=== PATIENT | female | born 1945 | race Hispanic/Latino ===

== ENCOUNTER 2018-12-28 08:59 | Day surgery (SDC) | payer MEDICARE, OTHER ==
[~2018-12-28] VITALS: Ht 162.6 cm; Wt 77.6 kg
[~2018-12-28 08:59] MED LIST: ACET-66 PO; ASPI-1181 PO; ESOM40CA54 PO; METO50TA18 PO; NITR0.4T SL; PHEN100C9 PO; PRIM250T30 PO; PSYL660P17 PO; SIMV10TA2 PO; SODIUM CHLORIDE 0.9% 1000ML 1,000 ML IV ONE
[2018-12-28 09:49] VITALS: BP 133/64
[2018-12-28] MEDS ORDERED: PROPOFOL 10 MG/ML 20ML VIAL IV ONE (10:50)
[2018-12-28 11:08] VITALS: BP 102/47
[2018-12-28 11:13] VITALS: BP 109/51
[2018-12-28 11:22] VITALS: BP 110/51
[2018-12-28 11:34] VITALS: BP 116/54
[2018-12-28 11:46] VITALS: BP 110/52
[2019-05-08] MEDS ORDERED: METO50TA18 PO (04:36)
[2019-05-08] MEDS ORDERED: SIME180C35 PO (04:36)
[2019-05-08] MEDS ORDERED: ACET-2743 PO (04:36)
[2019-05-08] MEDS ORDERED: ROSU10TA28 PO (04:36)
[2019-05-08] MEDS ORDERED: TRAM50TA4 PO (04:36)
[2019-05-08] MEDS ORDERED: WARF6TAB49 PO (04:36)
== END 2018-12-28 11:56 | disposition home or self-care (01) ==
LOC: ENDO 08:59 → DAH 08:59 → ENDO 11:56
PROVIDERS: ATTEND Internal Medicine
DX: Z12.11 Encounter for screening for malignant neoplasm of colon (principal); D12.3 Benign neoplasm of transverse colon; K21.9 Gastro-esophageal reflux disease without esophagitis; Z86.010 Personal history of colon polyps; K29.70 Gastritis, unspecified, without bleeding; I25.10 Atherosclerotic heart disease of native coronary artery without angina pectoris; R56.9 Unspecified convulsions; K64.8 Other hemorrhoids; K57.30 Diverticulosis of large intestine without perforation or abscess without bleeding; G43.909 Migraine, unspecified, not intractable, without status migrainosus
CPT/HCPCS: 45380; 93005; A4606; J2704; J7030

== ENCOUNTER 2019-06-03 11:11 | Observation (INO) | payer OTHER ==
[~2019-06-03] VITALS: Ht 160 cm; Wt 76.0 kg
[~2019-06-03 11:11] MED LIST changes: +ACET-2743 PO; -NITR0.4T SL; +ROSU10TA28 PO; +SIME180C35 PO; -SODIUM CHLORIDE 0.9% 1000ML 1,000 ML IV ONE; +TRAM50TA4 PO; +WARF6TAB49 PO
[2019-06-03 11:37] LABS: BASOPHILS % (AUTO) 0.7 % (0.0-5.0); EOSINOPHILS % (AUTO) 2.9 % (0.0-8.0); HEMATOCRIT 36.1 % (36-48); MEAN CORPUSCULAR HEMOGLOBIN 31.6 pg (27.0-33.0); MEAN CORPUSCULAR HGB CONC 33.2 g/dL (32.0-36.0); MEAN CORPUSCULAR VOLUME 95.3 fL (79-99); MONOCYTES % (AUTO) 8.6 % (3.0-13.0); NEUTROPHILS % (AUTO) 60.8 % (40.0-77.0); NUCLEATED RED BLOOD CELLS 0.1 % (0.0-0.19); PLATELET COUNT (AUTO) 219 K/uL (130-400); RED BLOOD CELL COUNT(AUTO) 3.79 MIL/uL (4.00-5.50); RED CELL DISTRIBUTION WIDTH 12.6 % (11.0-15.5); WHITE BLOOD COUNT (AUTO) 5.7 K/uL (4.8-10.8)
[2019-06-03 11:45] LABS: CREATININE 0.8 mg/dL (0.5-1.5); POTASSIUM 4.4 mmol/L (3.5-5.1)
[2019-06-03 11:50] LABS: ALBUMIN 3.3 g/dL (3.5-5.0); BILIRUBIN,TOTAL 0.2 mg/dL (0.2-1.0); TOTAL PROTEIN, SERUM 7.9 g/dL (6.0-8.3)
[2019-06-03 11:59] LABS: CREATINE KINASE, TOTAL 76 U/L (21-232); MYOGLOBIN 34 ng/mL (10-92); TROPONIN I < 0.04 ng/mL (0.00-0.06)
[2019-06-03 13:59] LABS: APPEARANCE,URINE Clear (CLEAR); BILIRUBIN,URINE Negative (NEGATIVE); COLOR,URINE Yellow (YELLOW); GLUCOSE, URINE (UA) Negative (NEGATIVE); KETONES,URINE Negative (NEGATIVE); LEUKOCYTE ESTERASE ,URINE Small (NEGATIVE); NITRATE,URINE Negative (NEGATIVE); OCCULT BLOOD,URINE Negative (NEGATIVE); PROTEIN,URINE Negative (NEGATIVE); UROBILINOGEN,URINE 0.2 mg/dL (0.2-1.0)
[2019-06-03 14:14] LABS: BACTERIA,URINE Few /HPF (None Seen)
[2019-06-03 14:15] LABS: RBC,URINE None Seen /HPF (0-1)
[2019-06-03] MEDS ORDERED: MORPHINE SULFATE 2 MG/ML 1ML SYG IVP PRN (15:45)
[2019-06-03] MEDS ORDERED: ENOXAPARIN SODIUM 30 MG/0.3 ML SQ ONE (15:58)
[2019-06-03] MEDS ORDERED: ASPIRIN 81MG TAB.CHEW ONE (15:58)
[2019-06-03 19:00] VITALS: BP 137/63
--- NOTE | 2019-06-03 19:59 | NUR ---
INITIAL ASSESSMENT PATIENT WAS TRANSFERRED IN ED STRETCHER TO ROOM 220. PATIENT USED WALKER TO AMBULATE TO BED DUE TO S/P KNEE REPLACEMENT TO THE LEFT. PATIENT IS ALERT AND ORIENTED X4. NO COMPLAINTS OF CHEST PAIN AT THIS TIME. NO SIGNS OF DISTRESS. NO SHORTNESS OF BREATH. PATIENT HAS HER MEDICATIONS AT BEDSIDE. CALL LIGHT IS WITHIN REACH. BEDSIDE TABLE AND BELONGINGS ARE WITHIN REACH. PATIENT MADE COMFORTABLE. ALL QUESTIONS, CONCERNS AND NEEDS MET AT THIS TIME.
[2019-06-03 20:41] LABS: CREATINE KINASE, TOTAL 43 U/L (21-232); MYOGLOBIN 28 ng/mL (10-92); TROPONIN I < 0.04 ng/mL (0.00-0.06)
[2019-06-03] MEDS ORDERED: APIX5TAB PO (21:32)
[2019-06-03] MEDS: METOPROLOL TARTRATE 50 MG TAB PO SCH (21:34)
[2019-06-03 23:00] VITALS: BP 137/63
[2019-06-04 03:00] VITALS: BP 102/51
--- NOTE | 2019-06-04 03:32 | NUR ---
ASSESSMENT PATIENT IS RESTING IN BED. NO COMPLAINTS OF PAIN AT THIS TIME. NO SIGNS OF DISTRESS. NO SHORTNESS OF BREATH. PATIENTS CALL LIGHT IS WITHIN REACH. BEDSIDE TABLE IS WITHIN REACH. NO QUESTIONS, CONCERN, OR NEEDS AT THIS TIME.
[2019-06-04 04:16] LABS: MEAN CORPUSCULAR VOLUME 94.1 fL (79-99); PLATELET COUNT (AUTO) 218 K/uL (130-400); RED CELL DISTRIBUTION WIDTH 12.8 % (11.0-15.5); WHITE BLOOD COUNT (AUTO) 4.8 K/uL (4.8-10.8)
--- NOTE | 2019-06-04 04:36 | NUR ---
ASSESSMENT PATIENT IS RESTING IN BED. NO SIGNS OF DISTRESS. NO SHORTNESS OF BREATH. PATIENT VOICES NO PAIN AT THIS TIME BUT DID LET ME KNOW THAT SHE TOOK A DOSE OF HER HOME TRAMADOL FOR PAIN. PATIENT MADE AWARE TO NOT TAKE ANY MORE OF HER MEDICATIONS TILL THE MORNING THAT THE DOCTOR CAN REVIEW AND CONTINUE HER MEDICATIONS. PATIENT VOICED SHE UNDERSTOOD. CALL LIGHT WITHIN REACH. BEDSIDE TABLE WITHIN REACH. NO QUESTIONS, CONCERNS, OR NEEDS AT THIS TIME.
[2019-06-04 04:44] LABS: CREATINE KINASE, TOTAL 35 U/L (21-232); MYOGLOBIN 31 ng/mL (10-92); TROPONIN I < 0.04 ng/mL (0.00-0.06)
[2019-06-04 04:56] LABS: ALANINE AMINOTRANSFERASE 24 U/L (12-78); ALBUMIN 3.1 g/dL (3.5-5.0); ASPARTATE AMINOTRANSFERASE 30 U/L (10-37); BILIRUBIN,TOTAL 0.2 mg/dL (0.2-1.0); CARBON DIOXIDE 29 mmol/L (21-32); CHLORIDE 103 mmol/L (101-111); CHOLESTEROL 164 mg/dL (<200); CREATININE 0.8 mg/dL (0.5-1.5); GLOMERULAR FILTR. RATE CALC 75 mL/min (>60); GLUCOSE,RANDOM 89 mg/dL (70-105); HDL CHOLESTEROL 73 mg/dL (35-85); LDL DIRECT 72 mg/dL (0-99); POTASSIUM 4.6 mmol/L (3.5-5.1); SODIUM SERUM 142 mmol/L (136-145); TRIGLYCERIDES 90 mg/dL (30-200); UREA NITROGEN, BLOOD 12 mg/dL (7-18)
[2019-06-04 07:10] VITALS: BP 107/62
[2019-06-04] MEDS: METOPROLOL TARTRATE 50 MG TAB PO SCH (09:00)
[2019-06-04] MEDS ORDERED: ENOXAPARIN SODIUM 30 MG/0.3 ML SQ SCH (09:00)
[2019-06-04] MEDS ORDERED: ASPIRIN 81MG TAB.CHEW PO SCH (09:00)
[2019-06-04 11:00] VITALS: BP 117/63
--- NOTE | 2019-06-04 11:00 | NUR ---
DC INSTRUCTION GIVEN USING TEACH BACK, INST GIVEN TO FOLLOW UP WITH [facility] IN AM FOR MONITOR AND F/U IN CLINIC WITH DR SMITH IN 2 WEEKS. CATHETER REMOVED INTACT.
[2019-06-04] MEDS ORDERED: TRAMADOL HCL 50 MG TABLET PO PRN ×2 (11:15)
[2019-06-04] MEDS ORDERED: INSULIN HUMULIN R 100 UNIT/ML 3ML SQ SCH (11:30)
[2019-06-04] MEDS ORDERED: SIMETHICONE 80 MG TAB.CHEW PO SCH (12:30)
[2019-06-04] MEDS ORDERED: PHENYTOIN SODIUM 100 MG ERCAP PO SCH (13:00)
[2019-06-04] MEDS ORDERED: PRIMIDONE 50 MG TAB PO SCH (14:00)
[2019-06-04] MEDS ORDERED: METOPROLOL TARTRATE 50 MG TAB PO SCH (21:00)
[2019-06-04] MEDS ORDERED: APIXABAN 5 MG TABLET PO SCH (21:00)
[2019-06-04] MEDS ORDERED: ACETAMINOPHEN EXTRA STRENGTH 500 MG TABLET PO SCH (21:00)
[2019-06-04] MEDS ORDERED: PSYLLIUM SEED 1 EACH PACKET PO SCH (21:00)
[2019-06-04] MEDS ORDERED: ATORVASTATIN CALCIUM 20 MG TABLET PO SCH (21:00)
== END 2019-06-04 14:45 | disposition home or self-care (01) ==
LOC: EDH 11:11 → INTOOBSV 15:17 → EDHIP 15:17 → 2DH 19:45
PROVIDERS: ADMIT Internal Medicine Infectious Disease; ATTEND Internal Medicine Infectious Disease
DX: I25.119 Atherosclerotic heart disease of native coronary artery with unspecified angina pectoris (principal); I12.0 Hypertensive chronic kidney disease with stage 5 chronic kidney disease or end stage renal disease; E11.22 Type 2 diabetes mellitus with diabetic chronic kidney disease; N18.6 End stage renal disease; E78.5 Hyperlipidemia, unspecified; I48.0 Paroxysmal atrial fibrillation; I48.2 Chronic atrial fibrillation; G40.909 Epilepsy, unspecified, not intractable, without status epilepticus; M19.90 Unspecified osteoarthritis, unspecified site; Z96.652 Presence of left artificial knee joint; Z90.710 Acquired absence of both cervix and uterus; Z95.5 Presence of coronary angioplasty implant and graft; Z99.2 Dependence on renal dialysis; Z90.711 Acquired absence of uterus with remaining cervical stump; Z79.01 Long term (current) use of anticoagulants; Z79.02 Long term (current) use of antithrombotics/antiplatelets; Z79.899 Other long term (current) drug therapy; Z79.82 Long term (current) use of aspirin; Z88.2 Allergy status to sulfonamides; Z88.1 Allergy status to other antibiotic agents; Z88.5 Allergy status to narcotic agent; Z88.8 Allergy status to other drugs, medicaments and biological substances; Z91.048 Other nonmedicinal substance allergy status
CPT/HCPCS: 36415 ×2; 80053 ×2; 80061; 81001; 82550 ×3; 83735; 83874 ×3; 84484 ×3; 85025; 85027; 93005; 99284; G0378 ×2; J1650

== ENCOUNTER → 2019-06-29 | Outpatient (CLI) | payer OTHER ==
[~2019-06-29] MED LIST changes: -ACET-66 PO; +APIX5TAB PO; -ASPI-1181 PO; -ESOM40CA54 PO; -SIMV10TA2 PO; -WARF6TAB49 PO
== END | disposition home or self-care (01) ==
LOC: SHCH 12:53
PROVIDERS: ATTEND Internal Medicine Cardiovascular Disease
DX: I34.0 Nonrheumatic mitral (valve) insufficiency (principal); I51.3 Intracardiac thrombosis, not elsewhere classified; I48.91 Unspecified atrial fibrillation; I51.7 Cardiomegaly
CPT/HCPCS: 93306

== ENCOUNTER → 2020-02-01 | Outpatient (CLI) | payer OTHER ==
[~2020-02-01] MED LIST changes: +METO-391 PO; -METO50TA18 PO
== END | disposition home or self-care (01) ==
LOC: OIH 14:19
PROVIDERS: ATTEND Internal Medicine
DX: M79.89 Other specified soft tissue disorders (principal); M85.88 Other specified disorders of bone density and structure, other site; M06.4 Inflammatory polyarthropathy
CPT/HCPCS: 72040; 73130

== ENCOUNTER 2020-06-22 22:06 | Emergency (ER) | payer OTHER ==
[2020-06-22 22:57] LABS: BASOPHILS % (AUTO) 0.5 % (0.0-5.0); EOSINOPHILS % (AUTO) 2.1 % (0.0-8.0); HEMATOCRIT 33.5 % (36-48); LYMPHOCYTES % (AUTO) 35.6 % (21.0-51.0); MEAN CORPUSCULAR HEMOGLOBIN 30.7 pg (27.0-33.0); MEAN CORPUSCULAR HGB CONC 33.4 g/dL (32.0-36.0); MEAN CORPUSCULAR VOLUME 91.8 fL (79-99); MONOCYTES % (AUTO) 11.1 % (3.0-13.0); NEUTROPHILS % (AUTO) 50.5 % (40.0-77.0); PLATELET COUNT (AUTO) 227 K/uL (130-400); RED BLOOD CELL COUNT(AUTO) 3.65 MIL/uL (4.00-5.50); RED CELL DISTRIBUTION WIDTH 13.2 % (11.0-15.5); WHITE BLOOD COUNT (AUTO) 5.7 K/uL (4.8-10.8)
[2020-06-22 23:10] LABS: CREATININE 0.7 mg/dL (0.5-1.5); POTASSIUM 4.3 mmol/L (3.5-5.1)
[2020-06-22 23:13] LABS: INR 0.92 (0.85-1.15); PARTIAL THROMBOPLASTIN TIME 25.8 SEC (26.3-35.5)
[2020-06-22 23:19] LABS: ALBUMIN 3.3 g/dL (3.5-5.0); BILIRUBIN,TOTAL 0.1 mg/dL (0.2-1.0); TOTAL PROTEIN, SERUM 7.7 g/dL (6.0-8.3)
== END 2020-06-23 01:31 | disposition home or self-care (01) ==
LOC: EDH 22:06
DX: R00.2 Palpitations (principal); F41.1 Generalized anxiety disorder; I48.91 Unspecified atrial fibrillation; E78.00 Pure hypercholesterolemia, unspecified; I10 Essential (primary) hypertension; Z88.2 Allergy status to sulfonamides; Z91.041 Radiographic dye allergy status; Z88.6 Allergy status to analgesic agent
CPT/HCPCS: 36415; 71045; 80053; 82550; 84484; 85025; 85610; 85730; 93005

== ENCOUNTER 2020-11-13 05:13 | Observation (INO) | payer OTHER ==
[~2020-11-13] VITALS: Ht 160 cm; Wt 82.9 kg
[2020-11-13] MEDS ORDERED: METOPROLOL TARTRATE 1 MG/ML 5ML VIAL IV ONE ×3 (05:22→05:36)
[2020-11-13 05:23] LABS: BASOPHILS % (AUTO) 0.5 % (0.0-5.0); EOSINOPHILS % (AUTO) 3.4 % (0.0-8.0); HEMATOCRIT 38.7 % (36-48); LYMPHOCYTES % (AUTO) 37.3 % (21.0-51.0); MEAN CORPUSCULAR HEMOGLOBIN 30.4 pg (27.0-33.0); MEAN CORPUSCULAR HGB CONC 32.6 g/dL (32.0-36.0); MEAN CORPUSCULAR VOLUME 93.3 fL (79-99); MONOCYTES % (AUTO) 10.1 % (3.0-13.0); NEUTROPHILS % (AUTO) 48.5 % (40.0-77.0); PLATELET COUNT (AUTO) 262 K/uL (130-400); RED BLOOD CELL COUNT(AUTO) 4.15 MIL/uL (4.00-5.50); WHITE BLOOD COUNT (AUTO) 6.5 K/uL (4.8-10.8)
[2020-11-13 05:37] LABS: ALBUMIN 3.5 g/dL (3.5-5.0); BILIRUBIN,TOTAL 0.2 mg/dL (0.2-1.0); CREATININE 0.9 mg/dL (0.5-1.5); INR 0.98 (0.85-1.15); POTASSIUM 4.5 mmol/L (3.5-5.1); PROTHROMBIN TIME 10.7 SEC (9.6-11.6); TOTAL PROTEIN, SERUM 7.6 g/dL (6.0-8.3)
[2020-11-13 05:38] LABS: PARTIAL THROMBOPLASTIN TIME 24.1 SEC (26.3-35.5)
[2020-11-13] MEDS ORDERED: DILTIAZEM HCL 5 MG/ML 10 ML VIAL IV ONE (05:46)
[2020-11-13 07:37] LABS: APPEARANCE,URINE Clear (CLEAR); BILIRUBIN,URINE Negative (NEGATIVE); COLOR,URINE Yellow (YELLOW); GLUCOSE, URINE (UA) Negative (NEGATIVE); KETONES,URINE Negative (NEGATIVE); LEUKOCYTE ESTERASE ,URINE Small (NEGATIVE); NITRATE,URINE Negative (NEGATIVE); OCCULT BLOOD,URINE Negative (NEGATIVE); PROTEIN,URINE Negative (NEGATIVE); UROBILINOGEN,URINE 0.2 mg/dL (0.2-1.0)
[2020-11-13 07:59] LABS: BACTERIA,URINE Rare /HPF (None Seen); RBC,URINE None Seen /HPF (0-1); WBC,URINE 0-1 /HPF (0-1)
[2020-11-13] MEDS ORDERED: MORPHINE SULFATE 2 MG/ML 1ML SYG IV PRN (11:30)
[2020-11-13 11:44] LABS: CHOLESTEROL 138 mg/dL (<200); HDL CHOLESTEROL 74 mg/dL (35-85); LDL DIRECT 51 mg/dL (0-99); TRIGLYCERIDES 39 mg/dL (30-200)
[2020-11-13 11:57] LABS: HEMOGLOBIN A1C 5.7 % (4.0-6.0)
[2020-11-13] MEDS ORDERED: METOPROLOL TARTRATE 1 MG/ML 5ML VIAL IV PRN (12:30)
[2020-11-13 21:00] VITALS: BP 159/80
[2020-11-13] MEDS ORDERED: METOPROLOL TARTRATE 25 MG TAB PO SCH ×2 (21:00)
[2020-11-13] MEDS ORDERED: SIMVASTATIN 10 MG TABLET PO SCH (21:00)
[2020-11-13] MEDS ORDERED: PRIMIDONE 50 MG TAB PO SCH (21:00)
[2020-11-13] MEDS ORDERED: APIXABAN 5 MG TABLET PO SCH (21:00)
[2020-11-13] MEDS: METOPROLOL TARTRATE 25 MG TAB PO SCH (22:21)
[2020-11-13] MEDS: FAMOTIDINE/PF 20 MG/2 ML VIAL IV SCH (22:21)
[2020-11-13] MEDS: SODIUM CHLORIDE 0.9% 1000ML 1,000 ML IV SCH (22:23)
[2020-11-14] VITALS (7 sets, daily range): BP systolic 94–150; BP diastolic 53–73
[2020-11-14 02:17] LABS: BASOPHILS % (AUTO) 0.4 % (0.0-5.0); EOSINOPHILS % (AUTO) 1.9 % (0.0-8.0); HEMATOCRIT 33.5 % (36-48); LYMPHOCYTES % (AUTO) 30.6 % (21.0-51.0); MEAN CORPUSCULAR HEMOGLOBIN 30.7 pg (27.0-33.0); MEAN CORPUSCULAR HGB CONC 33.1 g/dL (32.0-36.0); MEAN CORPUSCULAR VOLUME 92.8 fL (79-99); MONOCYTES % (AUTO) 8.6 % (3.0-13.0); NEUTROPHILS % (AUTO) 58.4 % (40.0-77.0); PLATELET COUNT (AUTO) 220 K/uL (130-400); RED BLOOD CELL COUNT(AUTO) 3.61 MIL/uL (4.00-5.50); WHITE BLOOD COUNT (AUTO) 6.9 K/uL (4.8-10.8)
[2020-11-14 02:40] LABS: ALBUMIN 3.1 g/dL (3.5-5.0); BILIRUBIN,TOTAL 0.3 mg/dL (0.2-1.0); CREATININE 0.9 mg/dL (0.5-1.5); TOTAL PROTEIN, SERUM 6.9 g/dL (6.0-8.3)
[2020-11-14] MEDS: SODIUM CHLORIDE 0.9% 1000ML 1,000 ML IV SCH ×3 (04:09→23:05)
[2020-11-14] MEDS ORDERED: PHENYTOIN SODIUM 50 MG/ML 2ML VIAL IV SCH (05:00)
[2020-11-14] MEDS ORDERED: PHENYTOIN SODIUM IV SCH ×4 (05:15)
[2020-11-14] MEDS ORDERED: SODIUM CHLORIDE 0.9% IV SCH ×4 (05:15)
[2020-11-14] MEDS ORDERED: ENOXAPARIN SODIUM 40 MG/0.4 ML SYRINGE SQ SCH ×2 (09:00)
[2020-11-14] MEDS ORDERED: ASPIRIN 81MG TAB.CHEW PO SCH (09:00)
[2020-11-14] MEDS: METOPROLOL TARTRATE 25 MG TAB PO SCH ×2 (09:16→22:17)
[2020-11-14] MEDS: PHENYTOIN 100 MG/4 ML UDCUP PO SCH ×3 (09:16→22:15)
[2020-11-14] MEDS: FAMOTIDINE/PF 20 MG/2 ML VIAL IV SCH ×2 (09:17→22:17)
[2020-11-14] MEDS ORDERED: METO50TA9 PO (22:26)
[2020-11-14] MEDS ORDERED: PRIMIDONE 50 MG TAB PO SCH (23:00)
[2020-11-14] MEDS: PHENYTOIN SODIUM IV SCH (23:30)
[2020-11-14] MEDS: SODIUM CHLORIDE 0.9% IV SCH (23:30)
[2020-11-15] VITALS: BP 137/72
[2020-11-15] MEDS ORDERED: PHENYTOIN SODIUM 50 MG/ML 5ML VIAL ONE (01:44)
[2020-11-15] MEDS ORDERED: SODIUM CHLORIDE 0.9% 250 ML IV ONE (01:49)
[2020-11-15 03:00] VITALS: BP 141/69
[2020-11-15 04:05] LABS: HEMATOCRIT 34.4 % (36-48); MEAN CORPUSCULAR HEMOGLOBIN 30.4 pg (27.0-33.0); MEAN CORPUSCULAR HGB CONC 32.8 g/dL (32.0-36.0); MEAN CORPUSCULAR VOLUME 92.5 fL (79-99); RED BLOOD CELL COUNT(AUTO) 3.72 MIL/uL (4.00-5.50); RED CELL DISTRIBUTION WIDTH 12.6 % (11.0-15.5); WHITE BLOOD COUNT (AUTO) 7.4 K/uL (4.8-10.8)
[2020-11-15 04:19] LABS: CREATININE 0.8 mg/dL (0.5-1.5); PHENYTOIN (DILANTIN) 3.1 mcg/mL (10.0-20.0)
[2020-11-15 04:59] VITALS: BP 141/69
[2020-11-15] MEDS: SODIUM CHLORIDE 0.9% IV SCH (05:12)
[2020-11-15] MEDS: PHENYTOIN SODIUM IV SCH (05:12)
[2020-11-15] MEDS ORDERED: METOPROLOL SUCCINATE 50 MG TAB.SR.24H PO SCH (09:00)
== END 2020-11-15 07:35 | disposition left against medical advice (07) ==
LOC: EDH 05:13 → EDHIP 11:18 → INTOOBSV 11:18 → 4AH 19:54
PROVIDERS: ADMIT Internal Medicine; ATTEND Internal Medicine
DX: R07.89 Other chest pain (principal); I48.19 Other persistent atrial fibrillation; I25.10 Atherosclerotic heart disease of native coronary artery without angina pectoris; I10 Essential (primary) hypertension; E78.5 Hyperlipidemia, unspecified; R74.01 Elevation of levels of liver transaminase levels; I48.0 Paroxysmal atrial fibrillation; I25.2 Old myocardial infarction; D68.59 Other primary thrombophilia; G40.909 Epilepsy, unspecified, not intractable, without status epilepticus; Z95.5 Presence of coronary angioplasty implant and graft; Z90.710 Acquired absence of both cervix and uterus; Z90.12 Acquired absence of left breast and nipple; Z96.652 Presence of left artificial knee joint; Z79.01 Long term (current) use of anticoagulants; Z79.899 Other long term (current) drug therapy; Z88.1 Allergy status to other antibiotic agents; Z88.2 Allergy status to sulfonamides; Z88.5 Allergy status to narcotic agent; Z91.041 Radiographic dye allergy status
CPT/HCPCS: 36415 ×3; 71045; 80048; 80053 ×2; 80061; 80185 ×2; 81001; 83036; 83880; 84484 ×5; 85025 ×2; 85027; 85610; 85730; 93005 ×3; 93306; 93356; 96361 ×2; 96365; 96372; 96375; 96376; 99285; G0378 ×44; J1165 ×2; J1650; J3490 ×7; J7050

== ENCOUNTER → 2020-12-17 | Outpatient (CLI) | payer OTHER ==
[~2020-12-17] MED LIST changes: +METO50TA9 PO
== END | disposition home or self-care (01) ==
LOC: RAH 10:00
PROVIDERS: ATTEND Psychiatry & Neurology Neurology
DX: G40.909 Epilepsy, unspecified, not intractable, without status epilepticus (principal); I63.9 Cerebral infarction, unspecified
CPT/HCPCS: 70450

== ENCOUNTER 2021-03-10 01:59 | Observation (INO) | payer OTHER ==
[~2021-03-10] VITALS: Ht 160 cm; Wt 84.4 kg
[2021-03-10] VITALS (10 sets, daily range): BP systolic 98–138; BP diastolic 44–83
[2021-03-10 02:31] LABS: HEMATOCRIT 37.4 % (36-48); MEAN CORPUSCULAR HEMOGLOBIN 30.7 pg (27.0-33.0); MEAN CORPUSCULAR HGB CONC 32.6 g/dL (32.0-36.0); MEAN CORPUSCULAR VOLUME 94.2 fL (79-99); RED BLOOD CELL COUNT(AUTO) 3.97 MIL/uL (4.00-5.50); RED CELL DISTRIBUTION WIDTH 12.8 % (11.0-15.5); WHITE BLOOD COUNT (AUTO) 7.4 K/uL (4.8-10.8)
[2021-03-10 02:41] LABS: CREATININE 0.7 mg/dL (0.5-1.5)
[2021-03-10 02:44] LABS: INR 0.97 (0.85-1.15); PROTHROMBIN TIME 10.6 SEC (9.6-11.6)
[2021-03-10 02:45] LABS: ALBUMIN 3.6 g/dL (3.5-5.0); BILIRUBIN,TOTAL 0.1 mg/dL (0.2-1.0); MAGNESIUM 2.1 mg/dL (1.80-2.40); PARTIAL THROMBOPLASTIN TIME 25.6 SEC (26.3-35.5); TOTAL PROTEIN, SERUM 7.8 g/dL (6.0-8.3)
[2021-03-10] MEDS ORDERED: METOPROLOL TARTRATE 1 MG/ML 5ML VIAL IV ONE ×3 (03:18→04:00)
[2021-03-10] MEDS ORDERED: DILTIAZEM 125 MG/25 ML INJ IV ONE (04:39)
[2021-03-10] MEDS ORDERED: DILTIAZEM 50MG VIAL IV ONE (04:40)
[2021-03-10] MEDS ORDERED: DILTIAZEM 50MG VIAL IV SCH ×2 (04:45)
[2021-03-10] MEDS ORDERED: 0.9%NACL 500ML 500 ML IV SCH (04:45)
[2021-03-10] MEDS ORDERED: DILTIAZEM 125MG+100 ML NS 125 ML IV SCH (05:00)
[2021-03-10 05:10] LABS: APPEARANCE,URINE Clear (CLEAR); BILIRUBIN,URINE Negative (NEGATIVE); COLOR,URINE Yellow (YELLOW); GLUCOSE, URINE (UA) Negative (NEGATIVE); KETONES,URINE Negative (NEGATIVE); LEUKOCYTE ESTERASE ,URINE Moderate (NEGATIVE); NITRATE,URINE Negative (NEGATIVE); OCCULT BLOOD,URINE Negative (NEGATIVE); PROTEIN,URINE Negative (NEGATIVE); UROBILINOGEN,URINE 0.2 mg/dL (0.2-1.0)
[2021-03-10 05:28] LABS: BACTERIA,URINE Rare /HPF (None Seen); RBC,URINE 0-1 /HPF (0-1); SQUAMOUS EPITHELIAL CELL,UR 0-2 /HPF (0-2)
[2021-03-10] MEDS ORDERED: ONDANSETRON 4MG INJ IV PRN (06:30)
[2021-03-10] MEDS ORDERED: LACTULOSE 20 GM/30 ML UDCUP PO PRN (06:30)
[2021-03-10] MEDS ORDERED: ACETAMINOPHEN 325 MG TAB PO PRN ×2 (06:30)
[2021-03-10 06:52] LABS: AMPHET/METH SCREEN,URINE NEGATIVE (NEGATIVE); BARBITURATE SCREEN, URINE POSITIVE (NEGATIVE); BENZODIAZEPINES SCREEN,URINE NEGATIVE (NEGATIVE); CANNABINOID SCREEN,URINE NEGATIVE (NEGATIVE); COCAINE SCREEN,URINE NEGATIVE (NEGATIVE); OPIATE SCREEN,URINE NEGATIVE (NEGATIVE); PHENCYCLIDINE SCREEN,URINE NEGATIVE (NEGATIVE)
[2021-03-10] MEDS ORDERED: ASPIRIN 81MG CHEW TAB ONE (08:25)
[2021-03-10] MEDS: PANTOPRAZOLE 40 MG TAB DR PO SCH (08:46)
[2021-03-10] MEDS ORDERED: ASPIRIN 325 MG TABLET PO SCH (09:00)
[2021-03-10] MEDS ORDERED: ENOXAPARIN SODIUM 30 MG/0.3 ML SQ SCH (09:00)
[2021-03-10] MEDS ORDERED: METOPROLOL TARTRATE 25 MG TAB PO SCH ×2 (09:00→21:00)
[2021-03-10] MEDS ORDERED: WHEA1POW2 PO (12:17)
[2021-03-10] MEDS ORDERED: METO25TA6 PO (12:17)
[2021-03-10] MEDS ORDERED: METO50TA18 PO (12:17)
[2021-03-10] MEDS: APIXABAN 5 MG TABLET PO SCH (21:00)
[2021-03-10] MEDS: PHENYTOIN SODIUM 100 MG ERCAP PO SCH (21:00)
[2021-03-10] MEDS ORDERED: ATORVASTATIN 20 MG TABLET PO SCH (21:00)
[2021-03-10] MEDS ORDERED: APIXABAN 5 MG TABLET PO SCH (21:00)
[2021-03-10] MEDS: PRIMIDONE 50 MG TAB PO SCH (21:00)
[2021-03-10] MEDS: SOTALOL HCL 80 MG TABLET PO SCH (21:54)
[2021-03-11 00:30] VITALS: BP 128/68
[2021-03-11 04:14] VITALS: BP 130/53
[2021-03-11 05:10] VITALS: BP 101/58
[2021-03-11 05:28] LABS: BASOPHILS % (AUTO) 0.6 % (0.0-5.0); EOSINOPHILS % (AUTO) 2.8 % (0.0-8.0); HEMATOCRIT 37.3 % (36-48); LYMPHOCYTES % (AUTO) 34.6 % (21.0-51.0); MEAN CORPUSCULAR HEMOGLOBIN 31.3 pg (27.0-33.0); MEAN CORPUSCULAR VOLUME 94.9 fL (79-99); MONOCYTES % (AUTO) 10.3 % (3.0-13.0); NEUTROPHILS % (AUTO) 51.5 % (40.0-77.0); PLATELET COUNT (AUTO) 198 K/uL (130-400); RED BLOOD CELL COUNT(AUTO) 3.93 MIL/uL (4.00-5.50); RED CELL DISTRIBUTION WIDTH 12.7 % (11.0-15.5); WHITE BLOOD COUNT (AUTO) 4.9 K/uL (4.8-10.8)
[2021-03-11 05:43] LABS: CREATININE 0.7 mg/dL (0.5-1.5); POTASSIUM 4.2 mmol/L (3.5-5.1)
[2021-03-11] MEDS ORDERED: SOTA80TA PO (05:49)
[2021-03-11 08:00] VITALS: BP 133/50
[2021-03-11] MEDS ORDERED: METOPROLOL TARTRATE 50 MG TAB PO SCH (09:00)
[2021-03-11] MEDS: PRIMIDONE 50 MG TAB PO SCH (09:22)
[2021-03-11] MEDS: PANTOPRAZOLE 40 MG TAB DR PO SCH (09:22)
[2021-03-11] MEDS: APIXABAN 5 MG TABLET PO SCH (09:22)
[2021-03-11] MEDS: SOTALOL HCL 80 MG TABLET PO SCH (09:22)
[2021-03-11] MEDS: PHENYTOIN SODIUM 100 MG ERCAP PO SCH (09:23)
[2021-03-11 12:00] VITALS: BP 125/64
== END 2021-03-11 12:45 | disposition home or self-care (01) ==
LOC: EDH 01:59 → EDHIP 05:55 → INTOOBSV 05:55 → 3DH 03-11 04:36
PROVIDERS: ADMIT Internal Medicine; ATTEND Internal Medicine
DX: I48.0 Paroxysmal atrial fibrillation (principal); I11.0 Hypertensive heart disease with heart failure; I50.33 Acute on chronic diastolic (congestive) heart failure; I25.10 Atherosclerotic heart disease of native coronary artery without angina pectoris; R60.0 Localized edema; E78.5 Hyperlipidemia, unspecified; G40.909 Epilepsy, unspecified, not intractable, without status epilepticus; Z86.73 Personal history of transient ischemic attack (TIA), and cerebral infarction without residual deficits; Z96.652 Presence of left artificial knee joint; Z90.711 Acquired absence of uterus with remaining cervical stump; Z95.5 Presence of coronary angioplasty implant and graft; Z91.19 Patient's noncompliance with other medical treatment and regimen; Z79.01 Long term (current) use of anticoagulants; Z79.82 Long term (current) use of aspirin; Z79.899 Other long term (current) drug therapy; Z88.1 Allergy status to other antibiotic agents; Z88.2 Allergy status to sulfonamides; Z88.5 Allergy status to narcotic agent; Z91.041 Radiographic dye allergy status
CPT/HCPCS: 36415 ×2; 71045; 80048; 80053; 80305; 81001; 82550; 82948; 83735 ×2; 83880; 84443; 84484 ×3; 85025; 85027; 85610; 85730; 87088; 93005 ×3; 93970; 96372; 96374; 96375; 96376; 99285; G0378 ×31; J1650; J3490 ×3

== ENCOUNTER 2021-04-03 03:31 | Observation (INO) | payer OTHER ==
[2021-04-03] VITALS (10 sets, daily range): BP systolic 114–162; BP diastolic 58–87
[~2021-04-03] VITALS: Ht 160 cm; Wt 77.9 kg
[~2021-04-03 03:31] MED LIST changes: -METO-391 PO; -METO50TA9 PO; -PSYL660P17 PO; +SOTA80TA PO; -TRAM50TA4 PO; +WHEA1POW2 PO
[2021-04-03] MEDS ORDERED: DILTIAZEM 25MG INJ IVP SCH ×2 (04:00→05:30)
[2021-04-03] MEDS ORDERED: DILTIAZEM 50MG VIAL IV ONE (04:07)
[2021-04-03 04:15] LABS: BASOPHILS % (AUTO) 0.4 % (0.0-5.0); EOSINOPHILS % (AUTO) 3.1 % (0.0-8.0); HEMATOCRIT 38.5 % (36-48); LYMPHOCYTES % (AUTO) 33.3 % (21.0-51.0); MEAN CORPUSCULAR HEMOGLOBIN 31.5 pg (27.0-33.0); MEAN CORPUSCULAR HGB CONC 33.2 g/dL (32.0-36.0); MEAN CORPUSCULAR VOLUME 94.8 fL (79-99); MONOCYTES % (AUTO) 10.8 % (3.0-13.0); NEUTROPHILS % (AUTO) 52.1 % (40.0-77.0); PLATELET COUNT (AUTO) 234 K/uL (130-400); RED BLOOD CELL COUNT(AUTO) 4.06 MIL/uL (4.00-5.50); RED CELL DISTRIBUTION WIDTH 13.2 % (11.0-15.5)
[2021-04-03 04:19] LABS: CREATININE 0.8 mg/dL (0.5-1.5); POTASSIUM 4.5 mmol/L (3.5-5.1)
[2021-04-03 04:23] LABS: INR 0.97 (0.85-1.15); PROTHROMBIN TIME 10.6 SEC (9.6-11.6)
[2021-04-03 04:29] LABS: ALBUMIN 3.7 g/dL (3.5-5.0); BILIRUBIN,TOTAL 0.2 mg/dL (0.2-1.0); MAGNESIUM 2.5 mg/dL (1.80-2.40); TOTAL PROTEIN, SERUM 7.9 g/dL (6.0-8.3)
[2021-04-03] MEDS ORDERED: 0.9%NACL 1000ML 1,000 ML IV ONE ×2 (04:30→05:30)
[2021-04-03 04:37] LABS: B-TYPE NATRIURETIC PEPTIDE 199 pg/mL (0-100)
[2021-04-03 05:36] LABS: APPEARANCE,URINE Cloudy (CLEAR); BILIRUBIN,URINE Negative (NEGATIVE); COLOR,URINE Yellow (YELLOW); GLUCOSE, URINE (UA) Negative (NEGATIVE); KETONES,URINE Negative (NEGATIVE); LEUKOCYTE ESTERASE ,URINE Trace (NEGATIVE); NITRATE,URINE Negative (NEGATIVE); OCCULT BLOOD,URINE Negative (NEGATIVE); PROTEIN,URINE Negative (NEGATIVE); UROBILINOGEN,URINE 0.2 mg/dL (0.2-1.0)
[2021-04-03] MEDS ORDERED: DILTIAZEM 125 MG/25 ML INJ IV ONE (05:53)
[2021-04-03] MEDS ORDERED: 0.9%NACL 100ML 100 ML ONE (05:54)
[2021-04-03] MEDS ORDERED: ONDANSETRON 4MG INJ IV PRN (06:00)
[2021-04-03] MEDS ORDERED: NITROGLYCERIN 0.4 MG SL TAB SL PRN (06:00)
[2021-04-03] MEDS ORDERED: ACETAMINOPHEN 325 MG TAB PO PRN ×2 (06:00)
[2021-04-03] MEDS ORDERED: 0.9%NACL 1000ML 1,000 ML IV SCH (06:00)
[2021-04-03 06:02] LABS: BACTERIA,URINE None Seen /HPF (None Seen); RBC,URINE None Seen /HPF (0-1); SQUAMOUS EPITHELIAL CELL,UR Few /HPF (0-2); WBC,URINE 0-1 /HPF (0-1)
[2021-04-03] MEDS: DILTIAZEM 125 MG/25 ML INJ 125 MG in 0.9%NACL 100ML 100 ML IV SCH (06:10)
[2021-04-03] MEDS: PRIMIDONE 50 MG TAB PO SCH ×3 (08:58→21:05)
[2021-04-03] MEDS: APIXABAN 5 MG TABLET PO SCH ×2 (08:58→21:00)
[2021-04-03] MEDS: PANTOPRAZOLE 40 MG TAB DR PO SCH (08:58)
[2021-04-03] MEDS ORDERED: FAMOTIDINE 20MG TAB PO SCH (09:00)
[2021-04-03] MEDS: PHENYTOIN SODIUM 100 MG ERCAP PO SCH ×2 (15:05→21:00)
[2021-04-03] MEDS: ATORVASTATIN 20 MG TABLET PO SCH (21:00)
[2021-04-04] VITALS (7 sets, daily range): BP systolic 123–167; BP diastolic 64–88
[2021-04-04] MEDS: DILTIAZEM 125 MG/25 ML INJ 125 MG in 0.9%NACL 100ML 100 ML IV SCH (02:51)
[2021-04-04 04:22] LABS: BASOPHILS % (AUTO) 0.5 % (0.0-5.0); EOSINOPHILS % (AUTO) 7.7 % (0.0-8.0); HEMATOCRIT 35.7 % (36-48); LYMPHOCYTES % (AUTO) 30.4 % (21.0-51.0); MEAN CORPUSCULAR HEMOGLOBIN 30.8 pg (27.0-33.0); MEAN CORPUSCULAR HGB CONC 32.8 g/dL (32.0-36.0); MEAN CORPUSCULAR VOLUME 93.9 fL (79-99); MONOCYTES % (AUTO) 10.4 % (3.0-13.0); NEUTROPHILS % (AUTO) 50.6 % (40.0-77.0); PLATELET COUNT (AUTO) 159 K/uL (130-400); RED CELL DISTRIBUTION WIDTH 13.1 % (11.0-15.5); WHITE BLOOD COUNT (AUTO) 5.6 K/uL (4.8-10.8)
[2021-04-04 04:34] LABS: BILIRUBIN,TOTAL 0.3 mg/dL (0.2-1.0); CREATININE 0.6 mg/dL (0.5-1.5); MAGNESIUM 2.1 mg/dL (1.80-2.40); POTASSIUM 3.7 mmol/L (3.5-5.1)
[2021-04-04] MEDS: PANTOPRAZOLE 40 MG TAB DR PO SCH (05:45)
[2021-04-04] MEDS ORDERED: METO-391 PO (11:26)
[2021-04-04] MEDS ORDERED: AMIO200T6 PO (11:26)
[2021-04-04] MEDS ORDERED: METOPROLOL SUCCINATE 50 MG TAB.SR.24H PO SCH (11:30)
[2021-04-04] MEDS ORDERED: AMIODARONE 900MG VIAL 900 MG in DEXTROSE 5%-WATER 500 ML IV SCH (11:30)
[2021-04-04] MEDS ORDERED: AMIODARONE 150MG VIAL 150 MG in DEXTROSE 5%-WATER 100 ML IV SCH (11:30)
[2021-04-04] MEDS: PHENYTOIN SODIUM 100 MG ERCAP PO SCH ×2 (11:38→22:02)
[2021-04-04] MEDS: APIXABAN 5 MG TABLET PO SCH ×2 (11:39→22:02)
[2021-04-04] MEDS: PRIMIDONE 50 MG TAB PO SCH ×3 (11:39→22:02)
[2021-04-04] MEDS: ATORVASTATIN 20 MG TABLET PO SCH (22:02)
[2021-04-05 03:27] VITALS: BP 137/72
[2021-04-05] MEDS: PANTOPRAZOLE 40 MG TAB DR PO SCH (05:55)
[2021-04-05 08:37] VITALS: BP 145/77
[2021-04-05] MEDS: PHENYTOIN SODIUM 100 MG ERCAP PO SCH (08:52)
[2021-04-05] MEDS: APIXABAN 5 MG TABLET PO SCH (08:52)
[2021-04-05] MEDS: PRIMIDONE 50 MG TAB PO SCH (08:52)
[2021-04-05] MEDS ORDERED: METOPROLOL SUCCINATE 50 MG TAB.SR.24H PO SCH (09:00)
[2021-04-05] MEDS ORDERED: AMIODARONE 200 MG TABLET PO SCH (09:00)
[2021-04-05 10:40] VITALS: BP 147/76
== END 2021-04-05 10:21 | disposition home or self-care (01) ==
LOC: EDH 03:31 → INTOOBSV 05:46 → EDHIP 05:46 → 4DH 09:29
PROVIDERS: ADMIT Internal Medicine; ATTEND Internal Medicine
DX: I48.20 Chronic atrial fibrillation, unspecified (principal); I11.0 Hypertensive heart disease with heart failure; I50.33 Acute on chronic diastolic (congestive) heart failure; E86.9 Volume depletion, unspecified; I25.10 Atherosclerotic heart disease of native coronary artery without angina pectoris; E78.5 Hyperlipidemia, unspecified; Z95.1 Presence of aortocoronary bypass graft; Z79.82 Long term (current) use of aspirin; Z79.899 Other long term (current) drug therapy; Z90.711 Acquired absence of uterus with remaining cervical stump; Z86.73 Personal history of transient ischemic attack (TIA), and cerebral infarction without residual deficits; Z95.5 Presence of coronary angioplasty implant and graft; Z96.652 Presence of left artificial knee joint; Z90.710 Acquired absence of both cervix and uterus; Z98.890 Other specified postprocedural states
CPT/HCPCS: 36415 ×2; 71045; 80053 ×2; 80061; 80185; 81001; 82550; 83735 ×2; 83880; 84484 ×6; 85025 ×2; 85610; 93005 ×3; 96365; 96366 ×3; 96367; 96376; 99285; G0378 ×19; J0282 ×2; J3490 ×4; J7030; J7060 ×2

== ENCOUNTER 2021-04-05 20:25 | Inpatient (IN) | payer OTHER ==
[~2021-04-05] VITALS: Ht 160 cm; Wt 82.8 kg
[~2021-04-05 20:25] MED LIST changes: +AMIO200T6 PO; +METO-391 PO; -SOTA80TA PO
[2021-04-05 20:30] VITALS: BP 117/82
[2021-04-05] MEDS ORDERED: DILTIAZEM 25MG INJ IVP SCH ×2 (21:00→22:30)
[2021-04-05 21:02] LABS: BASOPHILS % (AUTO) 0.3 % (0.0-5.0); EOSINOPHILS % (AUTO) 0.6 % (0.0-8.0); HEMATOCRIT 36.8 % (36-48); LYMPHOCYTES % (AUTO) 25.9 % (21.0-51.0); MEAN CORPUSCULAR HEMOGLOBIN 31.3 pg (27.0-33.0); MEAN CORPUSCULAR HGB CONC 32.9 g/dL (32.0-36.0); MEAN CORPUSCULAR VOLUME 95.3 fL (79-99); MONOCYTES % (AUTO) 9.5 % (3.0-13.0); NEUTROPHILS % (AUTO) 63.4 % (40.0-77.0); PLATELET COUNT (AUTO) 227 K/uL (130-400); RED BLOOD CELL COUNT(AUTO) 3.86 MIL/uL (4.00-5.50); RED CELL DISTRIBUTION WIDTH 12.9 % (11.0-15.5); WHITE BLOOD COUNT (AUTO) 8.7 K/uL (4.8-10.8)
[2021-04-05 21:14] LABS: INR 0.95 (0.85-1.15); PROTHROMBIN TIME 10.4 SEC (9.6-11.6)
[2021-04-05] MEDS ORDERED: DILTIAZEM 50MG VIAL IV ONE (21:16)
[2021-04-05 21:24] LABS: B-TYPE NATRIURETIC PEPTIDE 55 pg/mL (0-100)
[2021-04-05 21:29] LABS: POTASSIUM 3.9 mmol/L (3.5-5.1)
[2021-04-05 21:33] LABS: ALBUMIN 3.6 g/dL (3.5-5.0); BILIRUBIN,TOTAL 0.2 mg/dL (0.2-1.0); MAGNESIUM 2.1 mg/dL (1.80-2.40); TOTAL PROTEIN, SERUM 8.2 g/dL (6.0-8.3)
[2021-04-05] MEDS ORDERED: 0.9%NACL 1000ML 1,000 ML IV ONE (22:30)
[2021-04-05] MEDS ORDERED: DILTIAZEM 125 MG/25 ML INJ IV ONE (23:21)
[2021-04-05] MEDS: DILTIAZEM 125MG+100 ML NS 125 ML IV PRN (23:55)
[2021-04-06] VITALS (8 sets, daily range): BP systolic 103–129; BP diastolic 36–78
[2021-04-06] MEDS ORDERED: ACETAMINOPHEN 325 MG TAB PO PRN ×2 (00:30)
[2021-04-06] MEDS ORDERED: NITROGLYCERIN 0.4 MG SL TAB SL PRN (00:30)
[2021-04-06] MEDS ORDERED: 0.9%NACL 1000ML 1,000 ML IV SCH (00:30)
[2021-04-06] MEDS ORDERED: ONDANSETRON 4MG INJ IV PRN (00:30)
[2021-04-06 08:28] LABS: HEMATOCRIT 35.4 % (36-48); MEAN CORPUSCULAR HEMOGLOBIN 31.1 pg (27.0-33.0); MEAN CORPUSCULAR HGB CONC 33.3 g/dL (32.0-36.0); MEAN CORPUSCULAR VOLUME 93.4 fL (79-99); RED BLOOD CELL COUNT(AUTO) 3.79 MIL/uL (4.00-5.50); RED CELL DISTRIBUTION WIDTH 12.9 % (11.0-15.5); WHITE BLOOD COUNT (AUTO) 6.4 K/uL (4.8-10.8)
[2021-04-06 08:55] LABS: ALANINE AMINOTRANSFERASE 36 U/L (12-78); ALBUMIN 3.3 g/dL (3.5-5.0); ASPARTATE AMINOTRANSFERASE 35 U/L (10-37); BILIRUBIN,TOTAL 0.3 mg/dL (0.2-1.0); CARBON DIOXIDE 29 mmol/L (21-32); CREATINE KINASE, TOTAL 69 U/L (21-232); CREATININE 0.8 mg/dL (0.5-1.5); GLOMERULAR FILTR. RATE CALC 75 mL/min (>60); GLUCOSE,RANDOM 102 mg/dL (70-105); MYOGLOBIN 30 ng/mL (10-92); THYROID STIMULATING HORMONE 2.97 uIU/mL (0.36-3.74); TOTAL PROTEIN, SERUM 7.7 g/dL (6.0-8.3); TROPONIN I < 0.04 ng/mL (0.00-0.06); UREA NITROGEN, BLOOD 19 mg/dL (7-18)
[2021-04-06] MEDS ORDERED: ENOXAPARIN SODIUM 30 MG/0.3 ML SQ SCH (09:00)
[2021-04-06 09:37] LABS: POTASSIUM 3.8 mmol/L (3.5-5.1); SODIUM SERUM 140 mmol/L (136-145)
[2021-04-06 09:38] LABS: CHLORIDE 105 mmol/L (101-111)
[2021-04-06] MEDS: DILTIAZEM 125MG+100 ML NS 125 ML IV PRN ×2 (09:59→18:48)
[2021-04-06] MEDS: FAMOTIDINE 20MG TAB PO SCH ×2 (10:23→19:51)
[2021-04-06] MEDS: PHENYTOIN SODIUM 100 MG ERCAP PO SCH ×2 (10:23→19:50)
[2021-04-06] MEDS: APIXABAN 5 MG TABLET PO SCH ×2 (10:23→19:51)
[2021-04-06] MEDS: PRIMIDONE 50 MG TAB PO SCH ×3 (10:24→20:44)
[2021-04-06] MEDS: ACETAMINOPHEN 500 MG TABLET PO SCH ×2 (10:24→19:52)
[2021-04-06] MEDS: AMIODARONE 200 MG TABLET PO SCH ×3 (12:04→20:44)
[2021-04-06] MEDS: SIMETHICONE 80 MG TAB.CHEW PO SCH ×2 (12:04→18:00)
[2021-04-06] MEDS: METOPROLOL SUCCINATE 50 MG TAB.SR.24H PO SCH (12:04)
[2021-04-06] MEDS ORDERED: ATORVASTATIN 20 MG TABLET PO SCH (21:00)
[2021-04-07] VITALS: BP 114/58
[2021-04-07 04:00] VITALS: BP 103/62
[2021-04-07 06:31] LABS: BASOPHILS % (AUTO) 0.2 % (0.0-5.0); EOSINOPHILS % (AUTO) 2.3 % (0.0-8.0); HEMATOCRIT 34.1 % (36-48); LYMPHOCYTES % (AUTO) 30.1 % (21.0-51.0); MEAN CORPUSCULAR HGB CONC 32.8 g/dL (32.0-36.0); MEAN CORPUSCULAR VOLUME 94.5 fL (79-99); MONOCYTES % (AUTO) 11.5 % (3.0-13.0); NEUTROPHILS % (AUTO) 55.7 % (40.0-77.0); PLATELET COUNT (AUTO) 189 K/uL (130-400); RED BLOOD CELL COUNT(AUTO) 3.61 MIL/uL (4.00-5.50); RED CELL DISTRIBUTION WIDTH 12.8 % (11.0-15.5); WHITE BLOOD COUNT (AUTO) 4.8 K/uL (4.8-10.8)
[2021-04-07 06:43] LABS: CREATININE 0.8 mg/dL (0.5-1.5); MAGNESIUM 2.1 mg/dL (1.80-2.40); POTASSIUM 3.9 mmol/L (3.5-5.1)
[2021-04-07 07:48] VITALS: BP 108/66
[2021-04-07] MEDS: APIXABAN 5 MG TABLET PO SCH (08:32)
[2021-04-07] MEDS: AMIODARONE 200 MG TABLET PO SCH ×2 (08:32→14:00)
[2021-04-07] MEDS: FAMOTIDINE 20MG TAB PO SCH (08:32)
[2021-04-07] MEDS: PHENYTOIN SODIUM 100 MG ERCAP PO SCH (08:33)
[2021-04-07] MEDS: PRIMIDONE 50 MG TAB PO SCH ×2 (08:33→14:00)
[2021-04-07] MEDS: SIMETHICONE 80 MG TAB.CHEW PO SCH ×2 (08:34→11:32)
[2021-04-07] MEDS: METOPROLOL SUCCINATE 50 MG TAB.SR.24H PO SCH (08:37)
[2021-04-07] MEDS: ACETAMINOPHEN 500 MG TABLET PO SCH (09:00)
[2021-04-07] MEDS ORDERED: PHARMACY COMMUNICATION MISC SCH (09:00)
[2021-04-07 11:03] VITALS: BP 118/55
== END 2021-04-07 15:19 | disposition home or self-care (01) | DRG 308 ==
LOC: EDH 20:25 → EDHIP 04-06 00:01 → 4BH 04-06 06:46
PROVIDERS: ADMIT Internal Medicine; ATTEND Internal Medicine
DX: I48.0 Paroxysmal atrial fibrillation (principal); I50.33 Acute on chronic diastolic (congestive) heart failure; I25.10 Atherosclerotic heart disease of native coronary artery without angina pectoris; E78.00 Pure hypercholesterolemia, unspecified; E78.5 Hyperlipidemia, unspecified; G40.909 Epilepsy, unspecified, not intractable, without status epilepticus; I11.0 Hypertensive heart disease with heart failure; Z96.652 Presence of left artificial knee joint; Z95.5 Presence of coronary angioplasty implant and graft; Z79.01 Long term (current) use of anticoagulants; Z86.73 Personal history of transient ischemic attack (TIA), and cerebral infarction without residual deficits; Z82.0 Family history of epilepsy and other diseases of the nervous system; Z82.3 Family history of stroke; Z82.49 Family history of ischemic heart disease and other diseases of the circulatory system; Z82.5 Family history of asthma and other chronic lower respiratory diseases; Z83.3 Family history of diabetes mellitus; Z90.710 Acquired absence of both cervix and uterus; Z88.2 Allergy status to sulfonamides; Z88.1 Allergy status to other antibiotic agents; Z91.041 Radiographic dye allergy status; Z88.5 Allergy status to narcotic agent
CPT/HCPCS: 36415; 71045; 80048; 80053; 80185; 82550; 83735; 83874; 83880; 84443; 84484; 85025; 85027; 85610; 93005; G0378; J3490; J7030

== ENCOUNTER 2021-07-02 01:34 | Emergency (ER) | payer OTHER ==
[~2021-07-02] VITALS: Ht 160 cm; Wt 83.5 kg
[2021-07-02 04:53] LABS: BASOPHILS % (AUTO) 0.3 % (0.0-5.0); EOSINOPHILS % (AUTO) 2.4 % (0.0-8.0); HEMATOCRIT 35.8 % (36-48); LYMPHOCYTES % (AUTO) 32.3 % (21.0-51.0); MEAN CORPUSCULAR HEMOGLOBIN 30.9 pg (27.0-33.0); MEAN CORPUSCULAR VOLUME 93.7 fL (79-99); MONOCYTES % (AUTO) 9.7 % (3.0-13.0); PLATELET COUNT (AUTO) 228 K/uL (130-400); RED BLOOD CELL COUNT(AUTO) 3.82 MIL/uL (4.00-5.50); RED CELL DISTRIBUTION WIDTH 13.2 % (11.0-15.5); WHITE BLOOD COUNT (AUTO) 6.4 K/uL (4.8-10.8)
[2021-07-02 04:54] LABS: CREATININE 0.7 mg/dL (0.5-1.5); POTASSIUM 4.9 mmol/L (3.5-5.1)
[2021-07-02 05:08] LABS: B-TYPE NATRIURETIC PEPTIDE 117 pg/mL (0-100)
[2021-07-02 05:10] LABS: ALBUMIN 3.4 g/dL (3.5-5.0); BILIRUBIN,TOTAL 0.1 mg/dL (0.2-1.0); MAGNESIUM 2.5 mg/dL (1.80-2.40); THYROID STIMULATING HORMONE 2.99 uIU/mL (0.36-3.74); TOTAL PROTEIN, SERUM 8.1 g/dL (6.0-8.3)
[2021-07-02 06:04] VITALS: BP 134/57
== END 2021-07-02 06:15 | disposition home or self-care (01) ==
LOC: EDH 01:34
DX: I48.91 Unspecified atrial fibrillation (principal); Z79.01 Long term (current) use of anticoagulants; I10 Essential (primary) hypertension; E78.00 Pure hypercholesterolemia, unspecified; J44.9 Chronic obstructive pulmonary disease, unspecified; Z88.5 Allergy status to narcotic agent; Z88.2 Allergy status to sulfonamides; Z88.1 Allergy status to other antibiotic agents; Z79.899 Other long term (current) drug therapy; Z95.5 Presence of coronary angioplasty implant and graft; Z88.8 Allergy status to other drugs, medicaments and biological substances; R00.2 Palpitations
CPT/HCPCS: 36415; 71045; 80053; 83735; 83880; 84443; 84484; 85025; 93005

== ENCOUNTER 2021-08-23 12:03 | Emergency (ER) | payer OTHER ==
[~2021-08-23] VITALS: Ht 152.4 cm; Wt 82.1 kg
[~2021-08-23 12:03] MED LIST changes: -AMIO200T6 PO; +AMIO200T68 PO
[2021-08-23 12:38] LABS: APPEARANCE,URINE CLOUDY (CLEAR); BILIRUBIN,URINE NEGATIVE (NEGATIVE); COLOR,URINE YELLOW (YELLOW); GLUCOSE, URINE (UA) NEGATIVE (NEGATIVE); KETONES,URINE NEGATIVE (NEGATIVE); LEUKOCYTE ESTERASE ,URINE LARGE (NEGATIVE); NITRATE,URINE NEGATIVE (NEGATIVE); OCCULT BLOOD,URINE LARGE (NEGATIVE); PROTEIN,URINE 100 mg/dL (NEGATIVE); UROBILINOGEN,URINE 0.2 mg/dL (0.2-1.0)
[2021-08-23 12:51] LABS: BACTERIA,URINE Few /HPF (None Seen); SQUAMOUS EPITHELIAL CELL,UR Rare /HPF (0-2); WBC,URINE TNTC /HPF (0-1)
[2021-08-23 13:13] LABS: BASOPHILS % (AUTO) 0.2 % (0.0-5.0); EOSINOPHILS % (AUTO) 0.6 % (0.0-8.0); HEMATOCRIT 37.4 % (36-48); LYMPHOCYTES % (AUTO) 15.2 % (21.0-51.0); MEAN CORPUSCULAR HEMOGLOBIN 30.7 pg (27.0-33.0); MEAN CORPUSCULAR HGB CONC 32.6 g/dL (32.0-36.0); MONOCYTES % (AUTO) 6.4 % (3.0-13.0); NEUTROPHILS % (AUTO) 77.4 % (40.0-77.0); PLATELET COUNT (AUTO) 243 K/uL (130-400); RED BLOOD CELL COUNT(AUTO) 3.98 MIL/uL (4.00-5.50); RED CELL DISTRIBUTION WIDTH 13.1 % (11.0-15.5); WHITE BLOOD COUNT (AUTO) 10.3 K/uL (4.8-10.8)
[2021-08-23 13:25] LABS: CREATININE 0.9 mg/dL (0.5-1.5)
[2021-08-23 13:30] LABS: ALBUMIN 3.5 g/dL (3.5-5.0); BILIRUBIN,TOTAL 0.1 mg/dL (0.2-1.0); TOTAL PROTEIN, SERUM 8.1 g/dL (6.0-8.3)
[2021-08-23] MEDS ORDERED: CEPH500B PO (13:40)
[2021-08-23] MEDS ORDERED: PHEN-847 PO (13:40)
[2021-08-23] MEDS ORDERED: CEFTRIAXONE 1G VIAL IM ONE (14:00)
[2021-08-23] MEDS ORDERED: PHENAZOPYRIDINE HCL 200 MG TABLET PO ONE (14:00)
[2021-08-23] MEDS ORDERED: IBUPROFEN 600 MG TABLET PO ONE (14:00)
[2021-08-23] MEDS ORDERED: LIDOCAINE HCL-MPF 1% 2ML VIAL ONE (14:01)
[2021-08-23 15:48] VITALS: BP 126/80
== END 2021-08-23 15:00 | disposition home or self-care (01) ==
LOC: EDH 12:03
DX: N39.0 Urinary tract infection, site not specified (principal); I10 Essential (primary) hypertension; E78.00 Pure hypercholesterolemia, unspecified; I48.91 Unspecified atrial fibrillation; Z88.1 Allergy status to other antibiotic agents; Z88.2 Allergy status to sulfonamides; Z88.5 Allergy status to narcotic agent; Z88.8 Allergy status to other drugs, medicaments and biological substances; Z79.899 Other long term (current) drug therapy; Z79.1 Long term (current) use of non-steroidal anti-inflammatories (NSAID); Z79.01 Long term (current) use of anticoagulants; Z95.5 Presence of coronary angioplasty implant and graft
CPT/HCPCS: 36415; 80053; 81001; 85025; 87077; 87088; 87186; 96372; 99283; J0696; J3490

== ENCOUNTER 2021-08-28 11:30 | Emergency (ER) | payer OTHER ==
[~2021-08-28] VITALS: Ht 157.5 cm; Wt 83.0 kg
[~2021-08-28 11:30] MED LIST changes: +CEPH500B PO; +PHEN-847 PO
[2021-08-28 12:38] LABS: BASOPHILS % (AUTO) 0.5 % (0.0-5.0); EOSINOPHILS % (AUTO) 9.2 % (0.0-8.0); MEAN CORPUSCULAR HEMOGLOBIN 30.3 pg (27.0-33.0); MEAN CORPUSCULAR VOLUME 97.7 fL (79-99); MONOCYTES % (AUTO) 8.7 % (3.0-13.0); NEUTROPHILS % (AUTO) 58.1 % (40.0-77.0); PLATELET COUNT (AUTO) 266 K/uL (130-400); RED BLOOD CELL COUNT(AUTO) 3.99 MIL/uL (4.00-5.50)
[2021-08-28 12:47] LABS: APPEARANCE,URINE Clear (CLEAR); BILIRUBIN,URINE Negative (NEGATIVE); COLOR,URINE Yellow (YELLOW); GLUCOSE, URINE (UA) Negative (NEGATIVE); KETONES,URINE Negative (NEGATIVE); LEUKOCYTE ESTERASE ,URINE Trace (NEGATIVE); NITRATE,URINE Negative (NEGATIVE); OCCULT BLOOD,URINE Negative (NEGATIVE); PROTEIN,URINE Negative (NEGATIVE); UROBILINOGEN,URINE 0.2 mg/dL (0.2-1.0)
[2021-08-28 12:54] LABS: CREATININE 0.9 mg/dL (0.5-1.5); POTASSIUM 5.3 mmol/L (3.5-5.1)
[2021-08-28 12:58] LABS: ALBUMIN 3.3 g/dL (3.5-5.0); BILIRUBIN,TOTAL 0.2 mg/dL (0.2-1.0); MAGNESIUM 2.3 mg/dL (1.80-2.40); TOTAL PROTEIN, SERUM 7.6 g/dL (6.0-8.3)
[2021-08-28 13:07] LABS: BACTERIA,URINE Few /HPF (None Seen); RBC,URINE 0-1 /HPF (0-1); WBC,URINE 0-1 /HPF (0-1)
[2021-08-28 14:13] VITALS: BP 130/78
[2021-10-07] MEDS ORDERED: ACET-2247 PO (15:50)
[2021-10-07] MEDS ORDERED: MELO7.5T12 PO (15:50)
[2021-10-07] MEDS ORDERED: CYCL10TA16 PO (15:50)
== END 2021-08-28 14:14 | disposition home or self-care (01) ==
LOC: EDH 11:30
DX: I48.0 Paroxysmal atrial fibrillation (principal); I10 Essential (primary) hypertension; E78.00 Pure hypercholesterolemia, unspecified; I25.10 Atherosclerotic heart disease of native coronary artery without angina pectoris; Z88.1 Allergy status to other antibiotic agents; Z88.2 Allergy status to sulfonamides; Z88.5 Allergy status to narcotic agent; Z88.8 Allergy status to other drugs, medicaments and biological substances; Z79.899 Other long term (current) drug therapy; Z79.01 Long term (current) use of anticoagulants; Z95.5 Presence of coronary angioplasty implant and graft; Z86.73 Personal history of transient ischemic attack (TIA), and cerebral infarction without residual deficits
CPT/HCPCS: 36415; 71045; 80053; 81001; 83735; 84484; 85025; 93005

== ENCOUNTER 2021-10-23 05:15 | Observation (INO) | payer OTHER ==
[~2021-10-23] VITALS: Ht 160 cm; Wt 80.7 kg
[~2021-10-23 05:15] MED LIST changes: +ACET-2247 PO; +CYCL10TA16 PO; +MELO7.5T12 PO
[2021-10-23 05:56] LABS: BASOPHILS % (AUTO) 0.7 % (0.0-5.0); EOSINOPHILS % (AUTO) 1.6 % (0.0-8.0); HEMATOCRIT 39.3 % (36-48); LYMPHOCYTES % (AUTO) 31.6 % (21.0-51.0); MEAN CORPUSCULAR HEMOGLOBIN 30.5 pg (27.0-33.0); MEAN CORPUSCULAR HGB CONC 32.6 g/dL (32.0-36.0); MEAN CORPUSCULAR VOLUME 93.8 fL (79-99); NEUTROPHILS % (AUTO) 55.9 % (40.0-77.0); PLATELET COUNT (AUTO) 240 K/uL (130-400); RED BLOOD CELL COUNT(AUTO) 4.19 MIL/uL (4.00-5.50); RED CELL DISTRIBUTION WIDTH 13.4 % (11.0-15.5); WHITE BLOOD COUNT (AUTO) 5.7 K/uL (4.8-10.8)
[2021-10-23 06:04] LABS: CREATININE 0.8 mg/dL (0.5-1.5); POTASSIUM 3.9 mmol/L (3.5-5.1)
[2021-10-23] MEDS ORDERED: DILTIAZEM 50MG VIAL IV ONE (06:05)
[2021-10-23 06:09] LABS: ALBUMIN 3.7 g/dL (3.5-5.0); BILIRUBIN,TOTAL 0.2 mg/dL (0.2-1.0); INR 1.98 (0.85-1.15); PROTHROMBIN TIME 20.3 SEC (9.6-11.6); TOTAL PROTEIN, SERUM 8.3 g/dL (6.0-8.3)
[2021-10-23] MEDS ORDERED: DILTIAZEM 25MG INJ IVP ONE ×4 (06:30→07:00)
[2021-10-23] MEDS ORDERED: OMEP40CA21 PO (06:57)
[2021-10-23] MEDS ORDERED: METO-391 PO ×2 (06:59→11:54)
[2021-10-23] MEDS ORDERED: METO-408 PO ×2 (06:59→11:54)
[2021-10-23] MEDS ORDERED: LORAZEPAM 2 MG/ML 1 ML VIAL IVP ONE (07:00)
[2021-10-23] MEDS ORDERED: WARF10TA45 PO (07:02)
[2021-10-23] MEDS ORDERED: CYCL5TAB PO (07:02)
[2021-10-23] MEDS ORDERED: PHEN100C9 PO (07:06)
[2021-10-23] MEDS ORDERED: TRAM50TA4 PO (07:06)
[2021-10-23] MEDS ORDERED: PRIM250T24 PO (07:09)
[2021-10-23] MEDS ORDERED: FEXO-59 PO (07:09)
[2021-10-23] MEDS ORDERED: ASPI-1005 PO (07:10)
[2021-10-23] MEDS ORDERED: MELO-106 PO (07:11)
[2021-10-23 07:14] LABS: APPEARANCE,URINE Clear (CLEAR); BILIRUBIN,URINE Negative (NEGATIVE); COLOR,URINE Yellow (YELLOW); GLUCOSE, URINE (UA) Negative (NEGATIVE); KETONES,URINE Negative (NEGATIVE); LEUKOCYTE ESTERASE ,URINE Trace (NEGATIVE); NITRATE,URINE Negative (NEGATIVE); OCCULT BLOOD,URINE Negative (NEGATIVE); PH,URINE 6.5 (5.0-8.0); PROTEIN,URINE Negative (NEGATIVE); UROBILINOGEN,URINE 0.2 mg/dL (0.2-1.0)
[2021-10-23 07:25] LABS: BACTERIA,URINE Rare /HPF (None Seen); RBC,URINE 0-1 /HPF (0-1); SQUAMOUS EPITHELIAL CELL,UR Rare /HPF (0-2); WBC,URINE 0-1 /HPF (0-1)
[2021-10-23] MEDS ORDERED: ASPIRIN 81MG CHEW TAB PO SCH (09:00)
[2021-10-23] MEDS ORDERED: CYCLOBENZAPRINE HCL 10 MG TABLET PO PRN (09:00)
[2021-10-23] MEDS ORDERED: DILTIAZEM 125 MG/25 ML INJ 125 MG in 0.9%NACL 100ML 100 ML IV SCH (09:00)
[2021-10-23] MEDS ORDERED: WARFARIN SODIUM 10 MG TABLET PO SCH (09:00)
[2021-10-23 09:17] LABS: MAGNESIUM 2.3 mg/dL (1.80-2.40); THYROID STIMULATING HORMONE 2.74 uIU/mL (0.36-3.74)
[2021-10-23] MEDS: PHENYTOIN SODIUM 100 MG ERCAP PO SCH ×2 (09:48→18:04)
[2021-10-23] MEDS: PRIMIDONE 50 MG TAB PO SCH ×2 (09:56→14:22)
[2021-10-23] MEDS ORDERED: METOPROLOL SUCCINATE 50 MG TAB.SR.24H PO SCH (11:00)
[2021-10-23 21:30] VITALS: BP 138/78
[2021-10-24] MEDS ORDERED: PANTOPRAZOLE 40 MG TAB DR PO SCH (08:00)
[2021-10-24] MEDS ORDERED: WARFARIN SODIUM 5 MG TAB PO SCH (16:00)
== END 2021-10-23 21:53 | disposition home or self-care (01) ==
LOC: EDH 05:15 → EDHIP 08:41 → INTOOBSV 08:41
PROVIDERS: ADMIT Internal Medicine; ATTEND Internal Medicine
DX: I48.20 Chronic atrial fibrillation, unspecified (principal); Z20.822 Contact with and (suspected) exposure to COVID-19; I25.10 Atherosclerotic heart disease of native coronary artery without angina pectoris; I10 Essential (primary) hypertension; E78.00 Pure hypercholesterolemia, unspecified; E78.5 Hyperlipidemia, unspecified; G40.909 Epilepsy, unspecified, not intractable, without status epilepticus; E11.9 Type 2 diabetes mellitus without complications; R06.02 Shortness of breath; R00.2 Palpitations; R94.31 Abnormal electrocardiogram [ECG] [EKG]; Z79.01 Long term (current) use of anticoagulants; Z82.0 Family history of epilepsy and other diseases of the nervous system; Z82.3 Family history of stroke; Z82.49 Family history of ischemic heart disease and other diseases of the circulatory system; Z82.5 Family history of asthma and other chronic lower respiratory diseases; Z83.3 Family history of diabetes mellitus; Z86.73 Personal history of transient ischemic attack (TIA), and cerebral infarction without residual deficits; Z89.512 Acquired absence of left leg below knee; Z90.711 Acquired absence of uterus with remaining cervical stump; Z91.81 History of falling; Z95.5 Presence of coronary angioplasty implant and graft; Z96.652 Presence of left artificial knee joint; Z90.710 Acquired absence of both cervix and uterus; Z98.890 Other specified postprocedural states
CPT/HCPCS: 36415; 70450; 71045; 72125; 80053; 81001; 83690; 83735; 83880; 84443; 84484 ×3; 85025; 85610; 85730; 87635; 87804 ×2; 93005; 99285; C9803; G0378 ×13; J2060; J3490 ×2; 96365; 96366; 96376

== ENCOUNTER 2022-03-18 22:37 | Emergency (ER) | payer OTHER ==
[~2022-03-18] VITALS: Ht 160 cm; Wt 78.5 kg
[~2022-03-18 22:37] MED LIST changes: -ACET-2743 PO; -APIX5TAB PO; +ASPI-1005 PO; +CYCL5TAB PO; +FEXO-263 PO; +MELO-106 PO; -MELO7.5T12 PO; +METO-408 PO; +OMEP40CA21 PO; +PRIM250T24 PO; -PRIM250T30 PO; +TRAM50TA4 PO; +WARF10TA45 PO
[2022-03-19 03:54] VITALS: BP 132/78
[2022-03-19 04:37] LABS: BASOPHILS % (AUTO) 0.4 % (0.0-5.0); EOSINOPHILS % (AUTO) 1.3 % (0.0-8.0); HEMATOCRIT 39.5 % (36-48); LYMPHOCYTES % (AUTO) 32.6 % (21.0-51.0); MEAN CORPUSCULAR HEMOGLOBIN 31.1 pg (27.0-33.0); MEAN CORPUSCULAR HGB CONC 33.4 g/dL (32.0-36.0); MEAN CORPUSCULAR VOLUME 93.2 fL (79-99); NEUTROPHILS % (AUTO) 57.3 % (40.0-77.0); PLATELET COUNT (AUTO) 146 K/uL (130-400); RED BLOOD CELL COUNT(AUTO) 4.24 MIL/uL (4.00-5.50); RED CELL DISTRIBUTION WIDTH 13.3 % (11.0-15.5); WHITE BLOOD COUNT (AUTO) 6.7 K/uL (4.8-10.8)
[2022-03-19 04:46] LABS: CREATININE 0.6 mg/dL (0.5-1.5); MAGNESIUM 2.3 mg/dL (1.80-2.40); POTASSIUM 4.6 mmol/L (3.5-5.1)
== END 2022-03-19 05:30 | disposition home or self-care (01) ==
LOC: EDH 22:37
DX: I48.0 Paroxysmal atrial fibrillation (principal); Z88.1 Allergy status to other antibiotic agents; Z88.2 Allergy status to sulfonamides; Z88.5 Allergy status to narcotic agent; Z88.8 Allergy status to other drugs, medicaments and biological substances; Z79.899 Other long term (current) drug therapy; Z79.82 Long term (current) use of aspirin; Z79.01 Long term (current) use of anticoagulants; Z98.890 Other specified postprocedural states
CPT/HCPCS: 36415; 71045; 80048; 83735; 84484; 85025; 93005

== ENCOUNTER 2022-03-23 16:17 | Emergency (ER) | payer OTHER ==
[~2022-03-23] VITALS: Ht 160 cm; Wt 77.1 kg
[2022-03-23] MEDS ORDERED: KETOROLAC 15MG/ML VIAL (15MG/ML) IV ONE (17:00)
[2022-03-23] MEDS ORDERED: 0.9% NACL 500ML IV.SOLN 500 ML IV SCH (17:00)
[2022-03-23] MEDS ORDERED: PROMETHAZINE HCL 6.25 MG/5 ML PO SCH (17:00)
[2022-03-23] MEDS ORDERED: CYCLOBENZAPRINE HCL 10 MG TABLET PO ONE (17:00)
[2022-03-23] MEDS ORDERED: PROMETHAZINE HCL 25 MG/ML 1ML AMPULE IM ONE (17:30)
[2022-03-23 17:38] LABS: BASOPHILS % (AUTO) 0.4 % (0.0-5.0); EOSINOPHILS % (AUTO) 0.6 % (0.0-8.0); HEMATOCRIT 36.3 % (36-48); LYMPHOCYTES % (AUTO) 32.1 % (21.0-51.0); MEAN CORPUSCULAR HEMOGLOBIN 30.5 pg (27.0-33.0); MEAN CORPUSCULAR HGB CONC 32.5 g/dL (32.0-36.0); MEAN CORPUSCULAR VOLUME 93.8 fL (79-99); MONOCYTES % (AUTO) 9.8 % (3.0-13.0); NEUTROPHILS % (AUTO) 56.9 % (40.0-77.0); PLATELET COUNT (AUTO) 225 K/uL (130-400); RED BLOOD CELL COUNT(AUTO) 3.87 MIL/uL (4.00-5.50); RED CELL DISTRIBUTION WIDTH 13.2 % (11.0-15.5); WHITE BLOOD COUNT (AUTO) 5.3 K/uL (4.8-10.8)
[2022-03-23 17:54] LABS: CARBON DIOXIDE 30 mmol/L (21-32); CHLORIDE 103 mmol/L (101-111); GLOMERULAR FILTR. RATE CALC 57 mL/min (>60); GLUCOSE,RANDOM 97 mg/dL (70-105); POTASSIUM 4.7 mmol/L (3.5-5.1); SODIUM SERUM 140 mmol/L (136-145); UREA NITROGEN, BLOOD 20 mg/dL (7-18)
[2022-03-23 17:57] LABS: ALANINE AMINOTRANSFERASE 46 U/L (12-78); ALBUMIN 3.3 g/dL (3.5-5.0); ASPARTATE AMINOTRANSFERASE 34 U/L (10-37); BILIRUBIN,TOTAL 0.1 mg/dL (0.2-1.0); TOTAL PROTEIN, SERUM 7.2 g/dL (6.0-8.3)
[2022-03-23] MEDS ORDERED: CYCL10TA16 PO (18:12)
[2022-03-23] MEDS ORDERED: ACET-2247 PO (18:12)
[2022-03-23 18:13] LABS: CRP QUANTITATIVE < 2.00 mg/L (0.00-9.0)
[2022-03-23 18:55] VITALS: BP 142/62
== END 2022-03-23 19:21 | disposition home or self-care (01) ==
LOC: EDH 16:17
DX: G44.209 Tension-type headache, unspecified, not intractable (principal); Z79.01 Long term (current) use of anticoagulants; Z79.1 Long term (current) use of non-steroidal anti-inflammatories (NSAID); Z79.82 Long term (current) use of aspirin; Z86.73 Personal history of transient ischemic attack (TIA), and cerebral infarction without residual deficits; Z79.899 Other long term (current) drug therapy; Z95.5 Presence of coronary angioplasty implant and graft; Z88.1 Allergy status to other antibiotic agents; Z88.2 Allergy status to sulfonamides; Z88.5 Allergy status to narcotic agent; Z88.8 Allergy status to other drugs, medicaments and biological substances
CPT/HCPCS: 36415; 70450; 80053; 84484; 85025; 86140; 96372; 96374; J1885; J7040; Q0169

== ENCOUNTER → 2022-03-30 | Outpatient (CLI) | payer OTHER ==
[~2022-03-30] MED LIST changes: +GADOTERATE MEGLUMINE 5 MMOL/10 ML VIAL IV ONE
== END | disposition home or self-care (01) ==
LOC: RAH 08:09
PROVIDERS: ATTEND Internal Medicine
DX: I67.89 Other cerebrovascular disease (principal); R90.82 White matter disease, unspecified; G44.52 New daily persistent headache (NDPH); G31.9 Degenerative disease of nervous system, unspecified
CPT/HCPCS: 70553; A9575

== ENCOUNTER 2022-04-18 22:35 | Observation (INO) | payer OTHER ==
[~2022-04-18] VITALS: Ht 160 cm; Wt 79.6 kg
[~2022-04-18 22:35] MED LIST changes: -GADOTERATE MEGLUMINE 5 MMOL/10 ML VIAL IV ONE
[2022-04-18 23:04] LABS: BASOPHILS % (AUTO) 0.4 % (0.0-5.0); EOSINOPHILS % (AUTO) 0.6 % (0.0-8.0); HEMATOCRIT 37.1 % (36-48); MEAN CORPUSCULAR HEMOGLOBIN 31.3 pg (27.0-33.0); MEAN CORPUSCULAR HGB CONC 33.7 g/dL (32.0-36.0); MONOCYTES % (AUTO) 10.6 % (3.0-13.0); PLATELET COUNT (AUTO) 262 K/uL (130-400); RED BLOOD CELL COUNT(AUTO) 3.99 MIL/uL (4.00-5.50); RED CELL DISTRIBUTION WIDTH 13.1 % (11.0-15.5); WHITE BLOOD COUNT (AUTO) 8.1 K/uL (4.8-10.8)
[2022-04-18 23:20] LABS: INR 1.21 (0.85-1.15)
[2022-04-18 23:21] LABS: CREATININE 0.8 mg/dL (0.5-1.5); POTASSIUM 4.8 mmol/L (3.5-5.1)
[2022-04-18 23:27] LABS: ALBUMIN 3.7 g/dL (3.5-5.0); MAGNESIUM 2.2 mg/dL (1.80-2.40); TOTAL PROTEIN, SERUM 7.9 g/dL (6.0-8.3)
[2022-04-18] MEDS ORDERED: DILTIAZEM 25MG INJ IVP ONE (23:30)
[2022-04-19] MEDS ORDERED: DILTIAZEM 25MG INJ IVP ONE
[2022-04-19] MEDS ORDERED: DILTIAZEM 125 MG/25 ML INJ 125 MG in 0.9%NACL 100ML 100 ML IV SCH (00:30)
[2022-04-19] MEDS ORDERED: 0.9%NACL 1000ML 1,000 ML IV SCH (01:00)
[2022-04-19] MEDS ORDERED: LACTULOSE 20 GM/30 ML UDCUP PO PRN (01:00)
[2022-04-19] MEDS ORDERED: ONDANSETRON 4MG INJ IVP PRN (01:00)
[2022-04-19] MEDS ORDERED: LABETALOL 20MG SYG IV PRN (01:00)
[2022-04-19] MEDS ORDERED: MORPHINE 2 MG SYG IVP PRN (01:00)
[2022-04-19] MEDS: PHARMACY COMMUNICATION MISC SCH ×3 (01:00→13:00)
[2022-04-19] MEDS ORDERED: HYDRALAZINE 20MG/ML VIAL IV PRN (01:00)
[2022-04-19] MEDS ORDERED: CLONIDINE HCL 0.1 MG TABLET PO PRN (01:00)
[2022-04-19] MEDS ORDERED: DOCUSATE SODIUM 100 MG CAP PO PRN (01:00)
[2022-04-19] MEDS ORDERED: TEMAZEPAM 15 MG CAPSULE PO PRN (01:00)
[2022-04-19] MEDS ORDERED: ALBUTEROL 0.083% 2.5 MG/3 ML INH IH PRN (01:00)
[2022-04-19] MEDS: INSULIN HUMULIN R 100 UNIT/ML 3ML SQ SCH ×4 (07:30→21:00)
[2022-04-19 07:52] LABS: HEMATOCRIT 40.2 % (36-48); MEAN CORPUSCULAR HEMOGLOBIN 31.2 pg (27.0-33.0); MEAN CORPUSCULAR HGB CONC 33.3 g/dL (32.0-36.0); MEAN CORPUSCULAR VOLUME 93.5 fL (79-99); RED BLOOD CELL COUNT(AUTO) 4.3 MIL/uL (4.00-5.50); RED CELL DISTRIBUTION WIDTH 13.2 % (11.0-15.5); WHITE BLOOD COUNT (AUTO) 6.4 K/uL (4.8-10.8)
[2022-04-19 08:01] LABS: CREATININE 0.7 mg/dL (0.5-1.5); MAGNESIUM 2.1 mg/dL (1.80-2.40)
[2022-04-19] MEDS: ACETAMINOPHEN 325 MG TAB PO PRN ×2 (08:19→15:11)
[2022-04-19] MEDS ORDERED: ENOXAPARIN SODIUM 40 MG/0.4 ML SYRINGE SQ SCH (09:00)
[2022-04-19] MEDS ORDERED: ENOXAPARIN SODIUM 40 MG/0.4 ML SYRINGE SQ ONE (09:30)
[2022-04-19] MEDS: METOPROLOL SUCCINATE 50 MG TAB.SR.24H PO SCH (10:47)
[2022-04-19] MEDS: PHENYTOIN SODIUM 100 MG ERCAP PO SCH ×2 (10:47→17:22)
[2022-04-19 11:20] VITALS: BP 125/67
[2022-04-19] MEDS: PRIMIDONE 50 MG TAB PO SCH ×2 (15:01→21:00)
[2022-04-19 16:40] VITALS: BP 130/70
[2022-04-19] MEDS ORDERED: ACETAMINOPHEN 325 MG TAB PO PRN (17:30)
[2022-04-19] MEDS ORDERED: TRAMADOL HCL 50 MG TABLET PO PRN (17:30)
[2022-04-19] MEDS ORDERED: ACETAMINOPHEN 325 MG TAB PO SCH (17:30)
[2022-04-19 19:13] VITALS: BP 144/68
[2022-04-19] MEDS: METOPROLOL SUCCINATE 25 MG TAB.SR.24H PO SCH (21:12)
[2022-04-19] MEDS: CYCLOBENZAPRINE HCL 10 MG TABLET PO SCH (21:12)
[2022-04-19] MEDS: ENOXAPARIN SODIUM 80 MG/0.8 ML SQ SCH (21:12)
[2022-04-19 23:09] VITALS: BP 133/60
[2022-04-20] MEDS: PHENYTOIN SODIUM 100 MG ERCAP PO SCH ×3 (02:00→17:29)
[2022-04-20] MEDS ORDERED: DULO30CA52 PO (02:39)
[2022-04-20] MEDS ORDERED: DULOXETINE HCL 30 MG CAP ONE (02:41)
[2022-04-20] MEDS: DULOXETINE HCL 30 MG CAP PO SCH ×2 (02:42→08:24)
[2022-04-20 03:01] VITALS: BP 145/73
[2022-04-20 03:46] VITALS: BP 156/68
[2022-04-20] MEDS: INSULIN HUMULIN R 100 UNIT/ML 3ML SQ SCH ×4 (06:10→21:00)
[2022-04-20 07:00] VITALS: BP 129/79
[2022-04-20] MEDS ORDERED: NON-FORMULARY MEDICATION 1 EACH (Omeprazole 40 MG) PO SCH (08:00)
[2022-04-20 08:18] LABS: HEMATOCRIT 37.8 % (36-48); MEAN CORPUSCULAR HGB CONC 33.3 g/dL (32.0-36.0); MEAN CORPUSCULAR VOLUME 92.9 fL (79-99); RED BLOOD CELL COUNT(AUTO) 4.07 MIL/uL (4.00-5.50); RED CELL DISTRIBUTION WIDTH 13.2 % (11.0-15.5); WHITE BLOOD COUNT (AUTO) 6.1 K/uL (4.8-10.8)
[2022-04-20] MEDS: ENOXAPARIN SODIUM 80 MG/0.8 ML SQ SCH ×2 (08:21→20:09)
[2022-04-20] MEDS: PRIMIDONE 50 MG TAB PO SCH ×2 (08:22→20:10)
[2022-04-20] MEDS: CYCLOBENZAPRINE HCL 10 MG TABLET PO SCH ×2 (08:23→20:09)
[2022-04-20] MEDS: ASPIRIN 81MG CHEW TAB PO SCH (08:23)
[2022-04-20] MEDS: PANTOPRAZOLE 40 MG TAB DR PO SCH (08:23)
[2022-04-20] MEDS: Fexofenadine HCl 180 MG PO SCH (08:24)
[2022-04-20] MEDS: METOPROLOL SUCCINATE 50 MG TAB.SR.24H PO SCH (08:25)
[2022-04-20 08:29] LABS: CREATININE 0.8 mg/dL (0.5-1.5); POTASSIUM 4.3 mmol/L (3.5-5.1)
[2022-04-20 11:00] VITALS: BP 135/68
[2022-04-20 16:00] VITALS: BP 123/76
[2022-04-20] MEDS ORDERED: WARFARIN SODIUM 10 MG TABLET PO SCH (16:00)
[2022-04-20 19:18] VITALS: BP 159/77
[2022-04-20] MEDS: METOPROLOL SUCCINATE 25 MG TAB.SR.24H PO SCH (20:09)
[2022-04-20] MEDS: GABAPENTIN 100 MG CAPSULE PO SCH (20:10)
[2022-04-21 00:18] VITALS: BP 131/69
[2022-04-21] MEDS: PHENYTOIN SODIUM 100 MG ERCAP PO SCH ×3 (03:02→16:28)
[2022-04-21 03:18] VITALS: BP 141/72
[2022-04-21 03:55] LABS: MEAN CORPUSCULAR HEMOGLOBIN 31.7 pg (27.0-33.0); MEAN CORPUSCULAR HGB CONC 34.4 g/dL (32.0-36.0); MEAN CORPUSCULAR VOLUME 92.1 fL (79-99); RED BLOOD CELL COUNT(AUTO) 3.69 MIL/uL (4.00-5.50); WHITE BLOOD COUNT (AUTO) 6.4 K/uL (4.8-10.8)
[2022-04-21 04:05] LABS: INR 1.09 (0.85-1.15); PROTHROMBIN TIME 11.8 SEC (9.6-11.6)
[2022-04-21 04:06] LABS: CREATININE 0.6 mg/dL (0.5-1.5)
[2022-04-21] MEDS: INSULIN HUMULIN R 100 UNIT/ML 3ML SQ SCH ×3 (06:28→16:16)
[2022-04-21] MEDS: CYCLOBENZAPRINE HCL 10 MG TABLET PO SCH (07:48)
[2022-04-21] MEDS: PANTOPRAZOLE 40 MG TAB DR PO SCH (07:48)
[2022-04-21] MEDS: DULOXETINE HCL 30 MG CAP PO SCH (07:48)
[2022-04-21] MEDS: ENOXAPARIN SODIUM 80 MG/0.8 ML SQ SCH (07:48)
[2022-04-21] MEDS: ASPIRIN 81MG CHEW TAB PO SCH (07:48)
[2022-04-21] MEDS: PRIMIDONE 50 MG TAB PO SCH (07:48)
[2022-04-21] MEDS: METOPROLOL SUCCINATE 50 MG TAB.SR.24H PO SCH (07:48)
[2022-04-21] MEDS: Fexofenadine HCl 180 MG PO SCH (07:49)
[2022-04-21] MEDS: GABAPENTIN 100 MG CAPSULE PO SCH ×2 (07:51→14:08)
[2022-04-21 08:00] VITALS: BP 135/61
[2022-04-21 12:55] VITALS: BP 120/67
[2022-04-21 16:33] VITALS: BP 124/66
== END 2022-04-21 18:45 ==
LOC: EDH 22:35 → EDHIP 04-19 00:38 → 2DH 04-19 11:40
PROVIDERS: ADMIT Internal Medicine Pulmonary Disease; ATTEND Internal Medicine Pulmonary Disease
DX: I48.20 Chronic atrial fibrillation, unspecified (principal); I25.10 Atherosclerotic heart disease of native coronary artery without angina pectoris; M19.90 Unspecified osteoarthritis, unspecified site; I10 Essential (primary) hypertension; E78.5 Hyperlipidemia, unspecified; G40.909 Epilepsy, unspecified, not intractable, without status epilepticus; K21.9 Gastro-esophageal reflux disease without esophagitis; G89.29 Other chronic pain; M54.9 Dorsalgia, unspecified; M54.2 Cervicalgia; G62.9 Polyneuropathy, unspecified; E11.9 Type 2 diabetes mellitus without complications; Z79.899 Other long term (current) drug therapy; Z86.73 Personal history of transient ischemic attack (TIA), and cerebral infarction without residual deficits; Z79.01 Long term (current) use of anticoagulants; Z90.710 Acquired absence of both cervix and uterus; Z91.81 History of falling; Z95.5 Presence of coronary angioplasty implant and graft; Z96.652 Presence of left artificial knee joint
CPT/HCPCS: 96376 ×2; 83735 ×2; 84484 ×3; 80053; 83880 ×3; 85025; 85610 ×2; 36415 ×4; 71045 ×2; 99291; 93005; 96372 ×3; 96365; 96366; 84443; 82550 ×2; 84100; 83874 ×2; 80048 ×3; 85027 ×3; 82948 ×10; 70551; 72141; 96375; 72100; 97161; 85730; 93306; 93356; J3490 ×2; G0378 ×64; J1650 ×6; J2405

== ENCOUNTER 2022-12-09 22:22 | Emergency (ER) | payer OTHER ==
[~2022-12-09] VITALS: Ht 160 cm; Wt 78.0 kg
[~2022-12-09 22:22] MED LIST changes: -AMIO200T68 PO; -CEPH500B PO; -CYCL5TAB PO; +DULO30CA52 PO; -MELO-106 PO; -PHEN-847 PO; -ROSU10TA28 PO; -SIME180C35 PO; -TRAM50TA4 PO; -WHEA1POW2 PO
[2022-12-09 23:02] LABS: BASOPHILS % (AUTO) 0.3 % (0.0-5.0); EOSINOPHILS % (AUTO) 0.3 % (0.0-8.0); HEMATOCRIT 37.2 % (36-48); LYMPHOCYTES % (AUTO) 28.2 % (21.0-51.0); MEAN CORPUSCULAR HEMOGLOBIN 31.1 pg (27.0-33.0); MEAN CORPUSCULAR HGB CONC 32.8 g/dL (32.0-36.0); MEAN CORPUSCULAR VOLUME 94.9 fL (79-99); MONOCYTES % (AUTO) 8.4 % (3.0-13.0); NEUTROPHILS % (AUTO) 62.4 % (40.0-77.0); PLATELET COUNT (AUTO) 227 K/uL (130-400); RED BLOOD CELL COUNT(AUTO) 3.92 MIL/uL (4.00-5.50); RED CELL DISTRIBUTION WIDTH 13.2 % (11.0-15.5); WHITE BLOOD COUNT (AUTO) 7.9 K/uL (4.8-10.8)
[2022-12-09 23:25] LABS: CREATININE 0.9 mg/dL (0.5-1.5); POTASSIUM 4.5 mmol/L (3.5-5.1)
[2022-12-09 23:28] LABS: INR 0.93 (0.85-1.15); PROTHROMBIN TIME 10.1 SEC (9.6-11.6)
[2022-12-09 23:29] LABS: PARTIAL THROMBOPLASTIN TIME 22.9 SEC (26.3-35.5)
[2022-12-09 23:30] LABS: ALBUMIN 3.7 g/dL (3.5-5.0); TOTAL PROTEIN, SERUM 7.7 g/dL (6.0-8.3)
[2022-12-09] MEDS ORDERED: KETOROLAC 30MG VIAL (30MG/ML) IVP ONE (23:30)
[2022-12-09] MEDS ORDERED: ONDANSETRON 4MG INJ IV ONE (23:30)
[2022-12-09] MEDS ORDERED: MORPHINE 4 MG SYG IVP ONE (23:30)
[2022-12-10] MEDS ORDERED: HYDR-4060 PO (00:21)
[2022-12-10] MEDS ORDERED: NAPR-1180 PO (00:21)
[2022-12-10 00:26] VITALS: BP 140/71
== END 2022-12-10 00:47 | disposition home or self-care (01) ==
LOC: EDH 22:22
DX: S80.02XA Contusion of left knee, initial encounter (principal); S30.0XXA Contusion of lower back and pelvis, initial encounter; E78.00 Pure hypercholesterolemia, unspecified; Z79.01 Long term (current) use of anticoagulants; Z79.82 Long term (current) use of aspirin; Z79.899 Other long term (current) drug therapy; Z88.1 Allergy status to other antibiotic agents; Z88.2 Allergy status to sulfonamides; Z88.5 Allergy status to narcotic agent; Z88.8 Allergy status to other drugs, medicaments and biological substances; W01.0XXA Fall on same level from slipping, tripping and stumbling without subsequent striking against object, initial encounter; Y93.01 Activity, walking, marching and hiking; Y92.89 Other specified places as the place of occurrence of the external cause; Y99.8 Other external cause status
CPT/HCPCS: 99284; 96374; 96375; 80053; 85025; 85610; 85730; 86850; 86900; 86901; 36415; 72170; 73564; J2405; J2270; J1885

== ENCOUNTER 2022-12-13 23:12 | Observation (INO) | payer OTHER ==
[~2022-12-13] VITALS: Ht 160 cm; Wt 80.4 kg
[~2022-12-13 23:12] MED LIST changes: +HYDR-4060 PO; +NAPR-1180 PO
[2022-12-14 00:07] LABS: BASOPHILS % (AUTO) 0.3 % (0.0-5.0); EOSINOPHILS % (AUTO) 0.5 % (0.0-8.0); HEMATOCRIT 40.5 % (36-48); LYMPHOCYTES % (AUTO) 32.1 % (21.0-51.0); MEAN CORPUSCULAR HEMOGLOBIN 30.8 pg (27.0-33.0); MEAN CORPUSCULAR HGB CONC 32.1 g/dL (32.0-36.0); NEUTROPHILS % (AUTO) 55.9 % (40.0-77.0); PLATELET COUNT (AUTO) 225 K/uL (130-400); RED BLOOD CELL COUNT(AUTO) 4.22 MIL/uL (4.00-5.50); RED CELL DISTRIBUTION WIDTH 13.2 % (11.0-15.5); WHITE BLOOD COUNT (AUTO) 6.1 K/uL (4.8-10.8)
[2022-12-14 00:21] LABS: CREATININE 0.7 mg/dL (0.5-1.5); POTASSIUM 4.7 mmol/L (3.5-5.1)
[2022-12-14 00:26] LABS: APPEARANCE,URINE CLEAR (CLEAR); BILIRUBIN,URINE NEGATIVE (NEGATIVE); COLOR,URINE COLORLESS (YELLOW); GLUCOSE, URINE (UA) NEGATIVE (NEGATIVE); KETONES,URINE NEGATIVE (NEGATIVE); LEUKOCYTE ESTERASE ,URINE 75 Leu/uL (NEGATIVE); NITRATE,URINE NEGATIVE (NEGATIVE); OCCULT BLOOD,URINE NEGATIVE (NEGATIVE); PH,URINE 6.5 (5.0-8.0); PROTEIN,URINE NEGATIVE (NEGATIVE); UROBILINOGEN,URINE 0.2 mg/dL (0.2-1.0)
[2022-12-14 00:28] LABS: ALBUMIN 3.9 g/dL (3.5-5.0); TOTAL PROTEIN, SERUM 8.2 g/dL (6.0-8.3)
[2022-12-14 00:32] LABS: MUCUS,URINE RARE LPF (None Seen); SQUAMOUS EPITHELIAL CELL,UR RARE /HPF (0-2)
[2022-12-14] MEDS ORDERED: ASPIRIN 81MG CHEW TAB PO ONE (01:00)
[2022-12-14] MEDS ORDERED: CEFTRIAXONE 1G VIAL IVP ONE (01:00)
[2022-12-14] MEDS ORDERED: CLOPIDOGREL 300MG TAB PO ONE (01:00)
[2022-12-14 01:07] LABS: INR 0.93 (0.85-1.15); PROTHROMBIN TIME 9.9 SEC (9.6-11.6)
[2022-12-14 01:09] LABS: PARTIAL THROMBOPLASTIN TIME 25.1 SEC (26.3-35.5)
[2022-12-14 01:14] LABS: B-TYPE NATRIURETIC PEPTIDE 114 pg/mL (0-100)
[2022-12-14] MEDS ORDERED: IPRATROPIUM/ALBUTEROL SULFATE 3 ML SOLUTION IH PRN (01:30)
[2022-12-14] MEDS ORDERED: ONDANSETRON 4MG INJ IVP PRN (01:30)
[2022-12-14] MEDS ORDERED: ACETAMINOPHEN 325 MG TAB PO PRN (01:30)
[2022-12-14] MEDS ORDERED: HYDRALAZINE 20MG/ML VIAL IV PRN (01:30)
[2022-12-14] MEDS ORDERED: ALBUTEROL 0.083% 2.5 MG/3 ML INH IH PRN (01:30)
[2022-12-14] MEDS ORDERED: DOCUSATE SODIUM 100 MG CAP PO PRN (01:30)
[2022-12-14] MEDS ORDERED: LACTULOSE 20 GM/30 ML UDCUP PO PRN (01:30)
[2022-12-14 01:41] LABS: THYROID STIMULATING HORMONE 2.37 uIU/mL (0.36-3.74)
[2022-12-14] MEDS ORDERED: MORPHINE 2 MG SYG IVP ONE (02:00)
[2022-12-14] MEDS ORDERED: 0.9%NACL 1000ML 1,000 ML IV SCH (02:00)
[2022-12-14 02:17] LABS: HEMOGLOBIN A1C 5.4 % (4.0-6.0)
[2022-12-14] MEDS ORDERED: PHARMACY COMMUNICATION MISC SCH ×2 (02:30→03:00)
[2022-12-14 03:50] VITALS: BP 141/71
[2022-12-14 06:07] LABS: MAGNESIUM 2.4 mg/dL (1.80-2.40); PHOSPHORUS 4.3 mg/dL (2.5-4.9)
[2022-12-14 08:00] VITALS: BP 132/76
[2022-12-14] MEDS ORDERED: IOHEXOL 350 MG/ML 100ML INFUS..BTL IV ONE (10:27)
[2022-12-14] MEDS ORDERED: PHEN100C9 PO (10:56)
[2022-12-14 12:00] VITALS: BP 145/78
[2022-12-14] MEDS ORDERED: PRIMIDONE 50 MG TAB PO SCH (14:00)
[2022-12-14] MEDS ORDERED: SIMV-43 PO (15:15)
[2022-12-14] MEDS ORDERED: APIX5TAB PO (15:15)
[2022-12-14] MEDS ORDERED: GABAPENTIN 100 MG CAPSULE PO SCH ×2 (15:24→21:00)
[2022-12-14] MEDS ORDERED: GABA-529 PO (15:28)
[2022-12-14] MEDS ORDERED: FISH1CAP63 PO (15:28)
[2022-12-14] MEDS ORDERED: METOPROLOL SUCCINATE 25 MG TAB.SR.24H PO SCH (21:00)
[2022-12-14] MEDS ORDERED: PHENYTOIN SODIUM 100 MG ERCAP PO SCH (21:00)
[2022-12-15] MEDS ORDERED: ASPIRIN 81MG CHEW TAB PO SCH (09:00)
[2022-12-15] MEDS ORDERED: METOPROLOL SUCCINATE 50 MG TAB.SR.24H PO SCH (09:00)
== END 2022-12-14 17:20 | disposition home or self-care (01) ==
LOC: EDH 23:12 → EDHIP 12-14 01:09 → 4DH 12-14 03:02
PROVIDERS: ADMIT Internal Medicine Critical Care Medicine; ATTEND Internal Medicine Critical Care Medicine
DX: R68.84 Jaw pain (principal); Z20.822 Contact with and (suspected) exposure to COVID-19; R07.89 Other chest pain; E75.6 Lipid storage disorder, unspecified; E87.1 Hypo-osmolality and hyponatremia; I11.0 Hypertensive heart disease with heart failure; I50.9 Heart failure, unspecified; I25.10 Atherosclerotic heart disease of native coronary artery without angina pectoris; I48.20 Chronic atrial fibrillation, unspecified; G40.909 Epilepsy, unspecified, not intractable, without status epilepticus; E78.5 Hyperlipidemia, unspecified; M54.2 Cervicalgia; M54.9 Dorsalgia, unspecified; G89.29 Other chronic pain; M19.90 Unspecified osteoarthritis, unspecified site; Z79.01 Long term (current) use of anticoagulants; Z88.1 Allergy status to other antibiotic agents; Z88.2 Allergy status to sulfonamides; Z90.710 Acquired absence of both cervix and uterus; Z95.5 Presence of coronary angioplasty implant and graft; Z96.652 Presence of left artificial knee joint; Z79.899 Other long term (current) drug therapy; Z98.890 Other specified postprocedural states; Z79.82 Long term (current) use of aspirin
CPT/HCPCS: 99285; 71045; 93005; 96374; 96361; 83036; 84443; 83735; 84100; 84484 ×4; 82330; 80061; 80053; 83880; 85025; 85378; 85610; 85730; 87088; 81001; 36415 ×2; 87635; 78582; 93306; 93970; 94664; G0378 ×14; J0696; A9540; A9558; Q9967

== ENCOUNTER → 2023-02-22 | Outpatient (CLI) | payer OTHER ==
[~2023-02-22] MED LIST changes: -ACET-2247 PO; +APIX5TAB PO; -CYCL10TA16 PO; -DULO30CA52 PO; -FEXO-263 PO; +FISH1CAP63 PO; +GABA-529 PO; -HYDR-4060 PO; -NAPR-1180 PO; -OMEP40CA21 PO; +SIMV-43 PO; -WARF10TA45 PO
== END | disposition home or self-care (01) ==
LOC: RAH 14:51
PROVIDERS: ATTEND Internal Medicine
DX: H53.8 Other visual disturbances (principal)
CPT/HCPCS: 70551

== ENCOUNTER 2023-02-27 20:18 | Emergency (ER) | payer OTHER ==
[~2023-02-27] VITALS: Ht 162.6 cm; Wt 81.6 kg
[2023-02-27] MEDS ORDERED: SOLU-MEDROL 125MG VIAL IVP ONE (21:00)
[2023-02-27] MEDS ORDERED: MORPHINE 2 MG SYG IM ONE (21:00)
[2023-02-27] MEDS ORDERED: KETOROLAC 60 MG VIAL (30MG/ML) IM ONE (21:00)
[2023-02-27] MEDS ORDERED: ONDANSETRON ODT 4MG TAB SL ONE (21:00)
[2023-02-27] MEDS ORDERED: SOLU-MEDROL 40MG VIAL IVP ONE (21:30)
[2023-02-27 23:04] VITALS: BP 132/60
[2023-02-27] MEDS ORDERED: NAPR-1192 PO (23:05)
== END 2023-02-27 23:24 | disposition home or self-care (01) ==
LOC: EDH 20:18
DX: G44.209 Tension-type headache, unspecified, not intractable (principal); M54.12 Radiculopathy, cervical region; I25.10 Atherosclerotic heart disease of native coronary artery without angina pectoris; I50.9 Heart failure, unspecified; Z79.01 Long term (current) use of anticoagulants; Z79.52 Long term (current) use of systemic steroids; Z79.82 Long term (current) use of aspirin; Z79.899 Other long term (current) drug therapy; Z88.1 Allergy status to other antibiotic agents; Z88.2 Allergy status to sulfonamides; Z88.5 Allergy status to narcotic agent; Z88.8 Allergy status to other drugs, medicaments and biological substances; Z95.5 Presence of coronary angioplasty implant and graft
CPT/HCPCS: 99285; 96374; 70450; 96372 ×2; J2270; J2920; J1885

== ENCOUNTER 2023-03-03 10:44 | Emergency (ER) | payer OTHER ==
[~2023-03-03] VITALS: Ht 160 cm; Wt 81.6 kg
[~2023-03-03 10:44] MED LIST changes: +NAPR-1192 PO
[2023-03-03 11:06] VITALS: BP 126/61
[2023-03-03 12:00] LABS: HEMATOCRIT 36.3 % (36-48); MEAN CORPUSCULAR HEMOGLOBIN 30.5 pg (27.0-33.0); MEAN CORPUSCULAR VOLUME 95.5 fL (79-99); RED BLOOD CELL COUNT(AUTO) 3.8 MIL/uL (4.00-5.50); RED CELL DISTRIBUTION WIDTH 13.3 % (11.0-15.5); WHITE BLOOD COUNT (AUTO) 5.4 K/uL (4.8-10.8)
[2023-03-03 12:14] LABS: ALBUMIN 3.3 g/dL (3.5-5.0); CREATININE 0.8 mg/dL (0.5-1.5); POTASSIUM 4.7 mmol/L (3.5-5.1); TOTAL PROTEIN, SERUM 7.4 g/dL (6.0-8.3)
[2023-03-03 12:50] LABS: APPEARANCE,URINE CLEAR (CLEAR); BILIRUBIN,URINE NEGATIVE (NEGATIVE); COLOR,URINE COLORLESS (YELLOW); GLUCOSE, URINE (UA) NEGATIVE (NEGATIVE); KETONES,URINE NEGATIVE (NEGATIVE); LEUKOCYTE ESTERASE ,URINE NEGATIVE Leu/uL (NEGATIVE); NITRATE,URINE NEGATIVE (NEGATIVE); OCCULT BLOOD,URINE NEGATIVE (NEGATIVE); PROTEIN,URINE NEGATIVE (NEGATIVE); UROBILINOGEN,URINE 0.2 mg/dL (0.2-1.0)
[2023-03-03] MEDS ORDERED: ASPIRIN 81MG CHEW TAB PO ONE (15:00)
== END 2023-03-03 17:30 | disposition left against medical advice (07) ==
LOC: EDH 10:44
DX: I25.10 Atherosclerotic heart disease of native coronary artery without angina pectoris (principal); R07.89 Other chest pain; I48.91 Unspecified atrial fibrillation; I50.9 Heart failure, unspecified; Z79.01 Long term (current) use of anticoagulants; Z79.82 Long term (current) use of aspirin; Z79.899 Other long term (current) drug therapy; Z87.440 Personal history of urinary (tract) infections; Z88.1 Allergy status to other antibiotic agents; Z88.2 Allergy status to sulfonamides; Z88.5 Allergy status to narcotic agent; Z88.8 Allergy status to other drugs, medicaments and biological substances; Z95.5 Presence of coronary angioplasty implant and graft
CPT/HCPCS: 36415; 71045; 80053; 81003; 83880; 85027; 93005

== ENCOUNTER 2023-03-05 10:24 | Emergency (ER) | payer OTHER ==
[~2023-03-05] VITALS: Ht 170.2 cm; Wt 77.1 kg
[2023-03-05] MEDS ORDERED: ONDANSETRON 4MG INJ IV ONE (11:00)
[2023-03-05] MEDS ORDERED: MORPHINE 4 MG SYG IVP ONE (11:00)
[2023-03-05 11:21] LABS: BASOPHILS % (AUTO) 0.5 % (0.0-5.0); EOSINOPHILS % (AUTO) 0.5 % (0.0-8.0); MEAN CORPUSCULAR HEMOGLOBIN 31.4 pg (27.0-33.0); MEAN CORPUSCULAR HGB CONC 32.8 g/dL (32.0-36.0); MEAN CORPUSCULAR VOLUME 95.7 fL (79-99); MONOCYTES % (AUTO) 10.2 % (3.0-13.0); NEUTROPHILS % (AUTO) 59.6 % (40.0-77.0); PLATELET COUNT (AUTO) 221 K/uL (130-400); RED BLOOD CELL COUNT(AUTO) 3.76 MIL/uL (4.00-5.50); RED CELL DISTRIBUTION WIDTH 13.2 % (11.0-15.5); WHITE BLOOD COUNT (AUTO) 4.4 K/uL (4.8-10.8)
[2023-03-05 11:40] LABS: CREATININE 0.8 mg/dL (0.5-1.5)
[2023-03-05 11:44] LABS: ALBUMIN 3.3 g/dL (3.5-5.0); TOTAL PROTEIN, SERUM 7.4 g/dL (6.0-8.3)
[2023-03-05 11:45] LABS: B-TYPE NATRIURETIC PEPTIDE 140 pg/mL (0-100)
[2023-03-05] MEDS ORDERED: LORAZEPAM 2 MG/ML 1 ML VIAL IVP ONE (12:00)
[2023-03-05] MEDS ORDERED: OXYC-38 PO (12:43)
[2023-03-05 13:07] VITALS: BP 124/64
== END 2023-03-05 13:09 | disposition home or self-care (01) ==
LOC: EDH 10:24
DX: F41.9 Anxiety disorder, unspecified (principal); I48.91 Unspecified atrial fibrillation; I25.10 Atherosclerotic heart disease of native coronary artery without angina pectoris; I50.9 Heart failure, unspecified; Z79.01 Long term (current) use of anticoagulants; Z79.82 Long term (current) use of aspirin; Z79.899 Other long term (current) drug therapy; Z88.1 Allergy status to other antibiotic agents; Z88.2 Allergy status to sulfonamides; Z88.5 Allergy status to narcotic agent; Z88.8 Allergy status to other drugs, medicaments and biological substances; Z95.5 Presence of coronary angioplasty implant and graft
CPT/HCPCS: 99285; 96374; 71045; 96375; 83735; 84484; 80053; 83880; 85025; 36415; 93005; J2405; J2060; J2270

== ENCOUNTER 2023-03-06 15:20 | Emergency (ER) | payer OTHER ==
[~2023-03-06] VITALS: Ht 167.6 cm; Wt 72.6 kg
[~2023-03-06 15:20] MED LIST changes: +OXYC-38 PO
[2023-03-06 16:32] LABS: BASOPHILS % (AUTO) 0.5 % (0.0-5.0); EOSINOPHILS % (AUTO) 0.9 % (0.0-8.0); LYMPHOCYTES % (AUTO) 31.2 % (21.0-51.0); MEAN CORPUSCULAR HEMOGLOBIN 30.6 pg (27.0-33.0); MEAN CORPUSCULAR HGB CONC 31.9 g/dL (32.0-36.0); MEAN CORPUSCULAR VOLUME 95.7 fL (79-99); MONOCYTES % (AUTO) 8.3 % (3.0-13.0); NEUTROPHILS % (AUTO) 58.7 % (40.0-77.0); PLATELET COUNT (AUTO) 234 K/uL (130-400); RED BLOOD CELL COUNT(AUTO) 3.76 MIL/uL (4.00-5.50); RED CELL DISTRIBUTION WIDTH 13.4 % (11.0-15.5); WHITE BLOOD COUNT (AUTO) 5.5 K/uL (4.8-10.8)
[2023-03-06 16:35] LABS: APPEARANCE,URINE CLEAR (CLEAR); BILIRUBIN,URINE NEGATIVE (NEGATIVE); COLOR,URINE COLORLESS (YELLOW); GLUCOSE, URINE (UA) NEGATIVE (NEGATIVE); KETONES,URINE NEGATIVE (NEGATIVE); LEUKOCYTE ESTERASE ,URINE NEGATIVE Leu/uL (NEGATIVE); NITRATE,URINE NEGATIVE (NEGATIVE); OCCULT BLOOD,URINE NEGATIVE (NEGATIVE); PROTEIN,URINE NEGATIVE (NEGATIVE); UROBILINOGEN,URINE 0.2 mg/dL (0.2-1.0)
[2023-03-06 16:39] LABS: BACTERIA,URINE RARE /HPF (None Seen); MUCUS,URINE RARE LPF (None Seen); SQUAMOUS EPITHELIAL CELL,UR RARE /HPF (0-2); WBC,URINE 0-1 /HPF (0-1)
[2023-03-06 16:48] LABS: CREATININE 0.8 mg/dL (0.5-1.5); POTASSIUM 4.6 mmol/L (3.5-5.1)
[2023-03-06 16:52] LABS: ALBUMIN 3.4 g/dL (3.5-5.0); TOTAL PROTEIN, SERUM 7.2 g/dL (6.0-8.3)
[2023-03-06] MEDS ORDERED: BISACODYL 10 MG SUPP.RECT RC ONE (17:30)
[2023-03-06] MEDS ORDERED: HYOSCYAMINE SULFATE 0.125 MG TAB.SUBL SL SCH (17:30)
[2023-03-06] MEDS ORDERED: KETOROLAC 30MG VIAL (30MG/ML) ONE (19:24)
[2023-03-06] MEDS ORDERED: KETOROLAC 30MG VIAL (30MG/ML) IM SCH (19:30)
[2023-03-06 20:20] VITALS: BP 132/60
== END 2023-03-06 20:58 | disposition home or self-care (01) ==
LOC: EDH 15:20
DX: R33.9 Retention of urine, unspecified (principal); E78.00 Pure hypercholesterolemia, unspecified; Z88.2 Allergy status to sulfonamides; Z88.1 Allergy status to other antibiotic agents; Z88.8 Allergy status to other drugs, medicaments and biological substances; Z79.899 Other long term (current) drug therapy
CPT/HCPCS: 99285; 74176; 83735; 84484 ×2; 80053; 83690; 85025; 81001; 36415; 51701; 93005; 96372; J1885

== ENCOUNTER 2023-03-11 03:54 | Observation (INO) | payer OTHER ==
[~2023-03-11] VITALS: Ht 160 cm; Wt 78.3 kg
[2023-03-11] MEDS ORDERED: AMIODARONE 150MG VIAL ONE (03:59)
[2023-03-11] MEDS ORDERED: DILTIAZEM 25MG INJ IVP ONE ×3 (03:59→04:30)
[2023-03-11] MEDS ORDERED: AMIODARONE 150MG VIAL IV STA (04:01)
[2023-03-11] MEDS ORDERED: MORPHINE 2 MG SYG ONE (04:14)
[2023-03-11] MEDS ORDERED: HYDROMORPHONE 0.5 MG SYG (0.5MG/0.5ML) ONE (04:16)
[2023-03-11] MEDS ORDERED: LORAZEPAM 2 MG/ML 1 ML VIAL ONE (04:22)
[2023-03-11] MEDS ORDERED: MAGNESIUM 2GM PREMIX 50ML 50 ML IV ONE (04:24)
[2023-03-11 04:25] LABS: BASOPHILS % (AUTO) 0.1 % (0.0-5.0); HEMATOCRIT 35.4 % (36-48); LYMPHOCYTES % (AUTO) 20.4 % (21.0-51.0); MEAN CORPUSCULAR HEMOGLOBIN 31.3 pg (27.0-33.0); MEAN CORPUSCULAR HGB CONC 33.9 g/dL (32.0-36.0); MEAN CORPUSCULAR VOLUME 92.4 fL (79-99); MONOCYTES % (AUTO) 7.2 % (3.0-13.0); NEUTROPHILS % (AUTO) 71.9 % (40.0-77.0); PLATELET COUNT (AUTO) 254 K/uL (130-400); RED BLOOD CELL COUNT(AUTO) 3.83 MIL/uL (4.00-5.50); RED CELL DISTRIBUTION WIDTH 13.2 % (11.0-15.5); WHITE BLOOD COUNT (AUTO) 7.2 K/uL (4.8-10.8)
[2023-03-11] MEDS ORDERED: DILTIAZEM 125 MG/25 ML INJ 125 MG in 0.9%NACL 100ML 100 ML IV SCH ×4 (04:30)
[2023-03-11] MEDS ORDERED: LORAZEPAM 2 MG/ML 1 ML VIAL IVP ONE (04:30)
[2023-03-11] MEDS ORDERED: HYDROMORPHONE 0.5 MG SYG (0.5MG/0.5ML) IVP ONE (04:30)
[2023-03-11] MEDS ORDERED: MORPHINE 2 MG SYG IVP ONE (04:30)
[2023-03-11 04:33] LABS: CREATININE 0.9 mg/dL (0.5-1.5); POTASSIUM 3.6 mmol/L (3.5-5.1)
[2023-03-11 04:38] LABS: ALBUMIN 3.5 g/dL (3.5-5.0); INR 0.93 (0.85-1.15); PROTHROMBIN TIME 10.2 SEC (9.6-11.6); TOTAL PROTEIN, SERUM 7.8 g/dL (6.0-8.3)
[2023-03-11 04:40] LABS: PARTIAL THROMBOPLASTIN TIME 23.1 SEC (26.3-35.5)
[2023-03-11] MEDS ORDERED: AMIODARONE 150MG VIAL 150 MG in DEXTROSE 5%-WATER 100 ML IV ONE (05:00)
[2023-03-11] MEDS ORDERED: MAGNESIUM 2GM PREMIX 50ML 50 ML IV SCH (05:00)
[2023-03-11] MEDS ORDERED: IOHEXOL 350 MG/ML 100ML INFUS..BTL IV ONE (05:53)
[2023-03-11] MEDS ORDERED: DILTIAZEM 125 MG/25 ML INJ IV ONE ×2 (06:45→06:49)
[2023-03-11] MEDS ORDERED: KCL 20 MEQ ERTAB PO PRN (08:30)
[2023-03-11] MEDS ORDERED: DIPHENHYDRAMINE HCL 25 MG CAPSULE PO PRN (08:30)
[2023-03-11] MEDS ORDERED: GUAIFENESIN SUGAR-FREE 100 MG/5 ML UDCUP PO PRN (08:30)
[2023-03-11] MEDS ORDERED: DiphenhydrAMINE HCL 50 MG/ML VIAL IV PRN (08:30)
[2023-03-11] MEDS ORDERED: POTASSIUM CHLORIDE 20MEQ/100ML 100 ML IV PRN ×2 (08:30)
[2023-03-11] MEDS ORDERED: LACTULOSE 20 GM/30 ML UDCUP PO PRN (08:30)
[2023-03-11] MEDS ORDERED: POLYETHYLENE GLYCOL 3350 17 GM POWD.PACK PO PRN (08:30)
[2023-03-11] MEDS ORDERED: ALPRAZOLAM 0.5 MG TABLET PO PRN (08:30)
[2023-03-11] MEDS ORDERED: MAGNESIUM 2GM PREMIX 50ML 50 ML IV PRN (08:30)
[2023-03-11] MEDS ORDERED: DOCUSATE SODIUM 100 MG CAP PO PRN (08:30)
[2023-03-11] MEDS ORDERED: LOPERAMIDE HCL 2 MG CAP PO PRN (08:30)
[2023-03-11] MEDS ORDERED: POTASSIUM CHLORIDE 10% ELIXIR 20 MEQ/15 ML UDCUP PO PRN (08:30)
[2023-03-11] MEDS ORDERED: ONDANSETRON 4MG INJ IV PRN (08:30)
[2023-03-11] MEDS ORDERED: ACETAMINOPHEN 325 MG TAB PO PRN (08:30)
[2023-03-11] MEDS ORDERED: HYDRALAZINE 25MG TABLET PO PRN (08:30)
[2023-03-11] MEDS ORDERED: DEXTROSE 50%-WATER 50 ML DISP.SYRIN IV PRN (08:30)
[2023-03-11] MEDS ORDERED: GLUCAGON 1MG KIT 1 MG ML IM PRN (08:30)
[2023-03-11] MEDS ORDERED: GUAIFENESIN-DM 200/20 MG 10 ML PO PRN (08:30)
[2023-03-11] MEDS: METOPROLOL SUCCINATE 50 MG TAB.SR.24H PO SCH (09:00)
[2023-03-11] MEDS ORDERED: FAMOTIDINE 20MG TAB PO SCH (09:00)
[2023-03-11] MEDS: GABAPENTIN 100 MG CAPSULE PO SCH (09:00)
[2023-03-11] MEDS: APIXABAN 5 MG TABLET PO SCH (09:00)
[2023-03-11] MEDS: ASPIRIN 81MG CHEW TAB PO SCH (09:00)
[2023-03-11] MEDS: PHENYTOIN SODIUM 100 MG ERCAP PO SCH (09:00)
[2023-03-11] MEDS: FAMOTIDINE 20MG TAB PO SCH (09:00)
[2023-03-11] MEDS: PRIMIDONE 50 MG TAB PO SCH ×2 (09:00→14:46)
[2023-03-11 09:23] LABS: APPEARANCE,URINE CLEAR (CLEAR); BILIRUBIN,URINE NEGATIVE (NEGATIVE); COLOR,URINE LIGHT-YELLOW (YELLOW); GLUCOSE, URINE (UA) NEGATIVE (NEGATIVE); KETONES,URINE NEGATIVE (NEGATIVE); LEUKOCYTE ESTERASE ,URINE NEGATIVE Leu/uL (NEGATIVE); NITRATE,URINE NEGATIVE (NEGATIVE); OCCULT BLOOD,URINE NEGATIVE (NEGATIVE); PH,URINE 5.5 (5.0-8.0); PROTEIN,URINE NEGATIVE (NEGATIVE); UROBILINOGEN,URINE 0.2 mg/dL (0.2-1.0)
[2023-03-11] MEDS: METOPROLOL SUCCINATE 25 MG TAB.SR.24H PO SCH (21:00)
[2023-03-11 21:35] VITALS: BP 149/79
[2023-03-11] MEDS ORDERED: MECLIZINE HCL 25 MG TABLET PO STA (21:52)
[2023-03-11] MEDS ORDERED: MECLIZINE HCL 25 MG TABLET ONE (21:59)
[2023-03-11] MEDS ORDERED: LACTATED RINGERS 1000ML IV SCH (22:00)
[2023-03-12] VITALS (7 sets, daily range): BP systolic 119–157; BP diastolic 51–85
[2023-03-12 00:14] LABS: THYROID STIMULATING HORMONE 1.34 uIU/mL (0.36-3.74)
[2023-03-12] MEDS: GABAPENTIN 100 MG CAPSULE PO SCH ×3 (01:00→19:53)
[2023-03-12] MEDS: APIXABAN 5 MG TABLET PO SCH ×3 (01:03→19:59)
[2023-03-12] MEDS: SIMVASTATIN 20 MG TABLET PO SCH ×2 (01:06→19:53)
[2023-03-12] MEDS: PHENYTOIN SODIUM 100 MG ERCAP PO SCH ×3 (01:06→19:53)
[2023-03-12] MEDS: PRIMIDONE 50 MG TAB PO SCH ×4 (01:07→19:52)
[2023-03-12] MEDS ORDERED: CEPH500C2 PO (01:20)
[2023-03-12] MEDS: OXYCODONE/ACETAMIN 5/325MG TAB PO PRN ×2 (04:24→15:39)
[2023-03-12] MEDS: ACETAMINOPHEN 325 MG TAB PO PRN ×2 (04:54→11:57)
[2023-03-12 07:05] LABS: APPEARANCE,URINE CLEAR (CLEAR); BILIRUBIN,URINE NEGATIVE (NEGATIVE); COLOR,URINE COLORLESS (YELLOW); GLUCOSE, URINE (UA) NEGATIVE (NEGATIVE); KETONES,URINE NEGATIVE (NEGATIVE); LEUKOCYTE ESTERASE ,URINE NEGATIVE Leu/uL (NEGATIVE); NITRATE,URINE NEGATIVE (NEGATIVE); OCCULT BLOOD,URINE NEGATIVE (NEGATIVE); PH,URINE 5.5 (5.0-8.0); PROTEIN,URINE NEGATIVE (NEGATIVE); UROBILINOGEN,URINE 0.2 mg/dL (0.2-1.0)
[2023-03-12 07:36] LABS: BASOPHILS % (AUTO) 0.1 % (0.0-5.0); EOSINOPHILS % (AUTO) 0.1 % (0.0-8.0); HEMATOCRIT 33.8 % (36-48); LYMPHOCYTES % (AUTO) 16.8 % (21.0-51.0); MEAN CORPUSCULAR HEMOGLOBIN 31.5 pg (27.0-33.0); MEAN CORPUSCULAR HGB CONC 33.1 g/dL (32.0-36.0); MEAN CORPUSCULAR VOLUME 94.9 fL (79-99); MONOCYTES % (AUTO) 10.1 % (3.0-13.0); NEUTROPHILS % (AUTO) 72.4 % (40.0-77.0); PLATELET COUNT (AUTO) 226 K/uL (130-400); RED BLOOD CELL COUNT(AUTO) 3.56 MIL/uL (4.00-5.50); RED CELL DISTRIBUTION WIDTH 13.1 % (11.0-15.5); WHITE BLOOD COUNT (AUTO) 8.4 K/uL (4.8-10.8)
[2023-03-12] MEDS ORDERED: PHENAZOPYRIDINE HCL 200 MG TABLET PO PRN (08:00)
[2023-03-12 08:18] LABS: ALBUMIN 3.1 g/dL (3.5-5.0); CREATININE 0.8 mg/dL (0.5-1.5); MAGNESIUM 2.5 mg/dL (1.80-2.40); POTASSIUM 4.2 mmol/L (3.5-5.1); TOTAL PROTEIN, SERUM 6.9 g/dL (6.0-8.3)
[2023-03-12] MEDS: METOPROLOL SUCCINATE 50 MG TAB.SR.24H PO SCH (10:07)
[2023-03-12] MEDS: ASPIRIN 81MG CHEW TAB PO SCH (10:08)
[2023-03-12] MEDS: FAMOTIDINE 20MG TAB PO SCH (10:08)
[2023-03-12] MEDS: NITROGLYCERIN 0.4 MG SL TAB SL PRN (16:12)
[2023-03-12] MEDS: METOPROLOL SUCCINATE 25 MG TAB.SR.24H PO SCH (19:53)
[2023-03-13 04:18] VITALS: BP 139/74
[2023-03-13 04:54] LABS: BASOPHILS % (AUTO) 0.3 % (0.0-5.0); EOSINOPHILS % (AUTO) 0.2 % (0.0-8.0); HEMATOCRIT 33.7 % (36-48); MEAN CORPUSCULAR HEMOGLOBIN 31.1 pg (27.0-33.0); MEAN CORPUSCULAR HGB CONC 34.1 g/dL (32.0-36.0); MEAN CORPUSCULAR VOLUME 91.1 fL (79-99); MONOCYTES % (AUTO) 9.7 % (3.0-13.0); NEUTROPHILS % (AUTO) 65.2 % (40.0-77.0); PLATELET COUNT (AUTO) 216 K/uL (130-400); RED CELL DISTRIBUTION WIDTH 13.5 % (11.0-15.5); WHITE BLOOD COUNT (AUTO) 6.4 K/uL (4.8-10.8)
[2023-03-13 05:25] LABS: ALBUMIN 3.3 g/dL (3.5-5.0); CREATININE 0.8 mg/dL (0.5-1.5); MAGNESIUM 2.2 mg/dL (1.80-2.40); POTASSIUM 4.6 mmol/L (3.5-5.1); TOTAL PROTEIN, SERUM 7.2 g/dL (6.0-8.3)
[2023-03-13 08:00] VITALS: BP 142/68
[2023-03-13] MEDS: PRIMIDONE 50 MG TAB PO SCH (09:00)
[2023-03-13] MEDS: GABAPENTIN 100 MG CAPSULE PO SCH (10:53)
[2023-03-13] MEDS: FAMOTIDINE 20MG TAB PO SCH (10:53)
[2023-03-13] MEDS: APIXABAN 5 MG TABLET PO SCH (10:54)
[2023-03-13] MEDS: PHENYTOIN SODIUM 100 MG ERCAP PO SCH (10:54)
[2023-03-13] MEDS: ASPIRIN 81MG CHEW TAB PO SCH (10:54)
[2023-03-13] MEDS: METOPROLOL SUCCINATE 50 MG TAB.SR.24H PO SCH (10:54)
[2023-03-13 11:01] VITALS: BP 149/72
[2023-03-13] MEDS: NITROGLYCERIN 0.4 MG SL TAB SL PRN (11:05)
[2023-03-13] MEDS ORDERED: FAMO20TA8 PO (13:06)
[2023-03-13] MEDS ORDERED: APIX5TAB PO (13:06)
== END 2023-03-13 14:40 | disposition home or self-care (01) ==
LOC: EDH 03:54 → EDHIP 08:02 → 4DH 21:34
PROVIDERS: ADMIT Internal Medicine Critical Care Medicine; ATTEND Internal Medicine Critical Care Medicine
DX: I48.0 Paroxysmal atrial fibrillation (principal); I48.20 Chronic atrial fibrillation, unspecified; G89.29 Other chronic pain; M54.2 Cervicalgia; E87.8 Other disorders of electrolyte and fluid balance, not elsewhere classified; I11.0 Hypertensive heart disease with heart failure; I50.9 Heart failure, unspecified; N32.81 Overactive bladder; E78.00 Pure hypercholesterolemia, unspecified; G40.909 Epilepsy, unspecified, not intractable, without status epilepticus; I25.10 Atherosclerotic heart disease of native coronary artery without angina pectoris; R60.0 Localized edema; Z79.01 Long term (current) use of anticoagulants; Z79.891 Long term (current) use of opiate analgesic; Z95.5 Presence of coronary angioplasty implant and graft; Z79.899 Other long term (current) drug therapy
CPT/HCPCS: 96376; 96365; 96366; 96375; 96367; 99285; 84443 ×2; 83735 ×3; 84484 ×3; 80053 ×3; 83880; 82140; 85025 ×3; 85378; 85610; 85730; 82948; 82607; 82746; 81003; 36415 ×3; 71045; 70450 ×2; 78582; 93970; 93005 ×5; 93306; 93356; 82550; 83874; G0378 ×54; J3475; J2270; J3490 ×3; J2060; J1170; J0282; A9540; A9558; Q0163; J7060; Q9967

== ENCOUNTER 2023-09-04 13:09 | Emergency (ER) | payer OTHER ==
[~2023-09-04] VITALS: Ht 160 cm; Wt 78.9 kg
[~2023-09-04 13:09] MED LIST changes: +FAMO20TA8 PO
[2023-09-04 13:28] LABS: APPEARANCE,URINE CLEAR (CLEAR); BILIRUBIN,URINE NEGATIVE (NEGATIVE); COLOR,URINE LIGHT-YELLOW (YELLOW); GLUCOSE, URINE (UA) NEGATIVE (NEGATIVE); KETONES,URINE NEGATIVE (NEGATIVE); LEUKOCYTE ESTERASE ,URINE 75 Leu/uL (NEGATIVE); NITRATE,URINE NEGATIVE (NEGATIVE); OCCULT BLOOD,URINE NEGATIVE (NEGATIVE); PH,URINE 5.5 (5.0-8.0); PROTEIN,URINE NEGATIVE (NEGATIVE); UROBILINOGEN,URINE 0.2 mg/dL (0.2-1.0)
[2023-09-04 13:39] LABS: HEMATOCRIT 34.3 % (36-48); MEAN CORPUSCULAR HEMOGLOBIN 29.8 pg (27.0-33.0); MEAN CORPUSCULAR HGB CONC 32.4 g/dL (32.0-36.0); RED BLOOD CELL COUNT(AUTO) 3.73 MIL/uL (4.00-5.50); RED CELL DISTRIBUTION WIDTH 12.8 % (11.0-15.5)
[2023-09-04 13:40] LABS: ADD UA MICROSCOPIC YES
[2023-09-04 13:45] LABS: BACTERIA,URINE RARE /HPF (None Seen); MUCUS,URINE RARE LPF (None Seen); RBC,URINE 0-1 /HPF (0-1); SQUAMOUS EPITHELIAL CELL,UR RARE /HPF (0-2)
[2023-09-04] MEDS ORDERED: FAMOTIDINE 20MG VIAL IV ONE (14:00)
[2023-09-04] MEDS ORDERED: METOCLOPRAMIDE 10 MG/2 ML VIAL IVP ONE (14:00)
[2023-09-04] MEDS ORDERED: DEXAMETHASONE SOD PHOSPHATE 4 MG/ML 1ML VIAL IV ONE (14:00)
[2023-09-04] MEDS ORDERED: KETOROLAC 30MG VIAL (30MG/ML) IVP ONE (14:00)
[2023-09-04] MEDS ORDERED: CEPHALEXIN 500 MG CAPSULE PO ONE (15:00)
[2023-09-04] MEDS ORDERED: KETOROLAC 30MG VIAL (30MG/ML) IM PRN (15:00)
[2023-09-04] MEDS ORDERED: METOCLOPRAMIDE 10 MG TABLET PO ONE (15:00)
[2023-09-04] MEDS ORDERED: FAMOTIDINE 20MG TAB PO ONE (15:00)
[2023-09-04] MEDS ORDERED: DEXAMETHASONE SOD PHOSPHATE 4 MG/ML 1ML VIAL IM ONE (15:00)
[2023-09-04 15:05] LABS: MAGNESIUM 2.3 mg/dL (1.80-2.40); THYROID STIMULATING HORMONE 1.38 uIU/mL (0.36-3.74)
[2023-09-04 15:06] LABS: POTASSIUM 5.1 mmol/L (3.5-5.1)
[2023-09-04] MEDS ORDERED: MECLIZINE HCL 25 MG TABLET PO ONE (15:30)
[2023-09-04] MEDS ORDERED: CEPHALEXIN 250 MG CAPSULE PO SCH (15:30)
[2023-09-04 16:06] VITALS: BP 157/62; PULSE 69; RESP 17; O2SAT 96
[2023-09-04] MEDS ORDERED: PHEN-847 PO (16:19)
[2023-09-04] MEDS ORDERED: CEPH500B PO (16:19)
[2023-09-04] MEDS ORDERED: METO-296 PO (16:19)
== END 2023-09-04 16:35 | disposition home or self-care (01) ==
LOC: EDH 13:09
DX: N39.0 Urinary tract infection, site not specified (principal); G43.909 Migraine, unspecified, not intractable, without status migrainosus; E78.00 Pure hypercholesterolemia, unspecified; I25.2 Old myocardial infarction; Z79.01 Long term (current) use of anticoagulants; Z79.82 Long term (current) use of aspirin; Z79.899 Other long term (current) drug therapy; Z88.1 Allergy status to other antibiotic agents; Z88.2 Allergy status to sulfonamides; Z88.5 Allergy status to narcotic agent; Z88.8 Allergy status to other drugs, medicaments and biological substances; Z91.041 Radiographic dye allergy status; Z95.5 Presence of coronary angioplasty implant and graft
CPT/HCPCS: 99285; 70450; 84443; 83735; 84484; 80048; 85027; 87088; 81001; 36415; 96372 ×2; 93005; J1100 ×2; J3490; J1885 ×2; J2765

== ENCOUNTER 2023-09-17 11:45 | Emergency (ER) | payer OTHER ==
[~2023-09-17] VITALS: Ht 160 cm; Wt 78.5 kg
[~2023-09-17 11:45] MED LIST changes: +CEPH500B PO; +METO-296 PO; +PHEN-847 PO
[2023-09-17 12:59] LABS: BASOPHILS # (AUTO) 0.02 K/uL (0.00-0.20); BASOPHILS % (AUTO) 0.3 % (0.0-5.0); EOSINOPHILS # (AUTO) 0.02 K/uL (0.00-0.70); EOSINOPHILS % (AUTO) 0.3 % (0.0-8.0); HEMATOCRIT 33.4 % (36-48); IMMATURE GRANULOCYTE ABSOLUTE 0.01 K/uL (0-1); LYMPHOCYTES # (AUTO) 1.8 K/uL (1.0-4.8); LYMPHOCYTES % (AUTO) 31.3 % (21.0-51.0); MEAN CORPUSCULAR HEMOGLOBIN 29.3 pg (27.0-33.0); MEAN CORPUSCULAR VOLUME 91.5 fL (79-99); MONOCYTES # (AUTO) 0.6 K/uL (0.1-1.0); MONOCYTES % (AUTO) 10.4 % (3.0-13.0); NEUTROPHILS # (AUTO) 3.3 K/uL (1.8-7.7); NEUTROPHILS % (AUTO) 57.5 % (40.0-77.0); PLATELET COUNT (AUTO) 211 K/uL (130-400); RED BLOOD CELL COUNT(AUTO) 3.65 MIL/uL (4.00-5.50); WHITE BLOOD COUNT (AUTO) 5.8 K/uL (4.8-10.8)
[2023-09-17 13:12] LABS: CREATININE 0.8 mg/dL (0.5-1.5); POTASSIUM 4.5 mmol/L (3.5-5.1)
[2023-09-17 13:17] LABS: ALBUMIN 3.4 g/dL (3.5-5.0); BILIRUBIN,TOTAL 0.2 mg/dL (0.2-1.0); TOTAL PROTEIN, SERUM 7.7 g/dL (6.0-8.3)
[2023-09-17] MEDS ORDERED: ORPHENADRINE CITRATE 30 MG/ML ML IM ONE (15:00)
[2023-09-17] MEDS ORDERED: KETOROLAC 30MG VIAL (30MG/ML) IM ONE (15:00)
[2023-09-17 16:00] VITALS: BP 132/73; PULSE 73; RESP 18; O2SAT 99
== END 2023-09-17 16:05 | disposition home or self-care (01) ==
LOC: EDH 11:45
DX: R51.9 Headache, unspecified (principal); R00.2 Palpitations; I48.91 Unspecified atrial fibrillation; Z79.01 Long term (current) use of anticoagulants; Z79.82 Long term (current) use of aspirin; Z79.899 Other long term (current) drug therapy; Z88.1 Allergy status to other antibiotic agents; Z88.2 Allergy status to sulfonamides; Z88.5 Allergy status to narcotic agent; Z88.8 Allergy status to other drugs, medicaments and biological substances; Z91.041 Radiographic dye allergy status; Z95.5 Presence of coronary angioplasty implant and graft
CPT/HCPCS: 99285; 70450; 71045; 84484; 80053; 85025; 36415; 96372 ×2; 93005; J1885; J2360

== ENCOUNTER 2023-09-20 17:44 | Emergency (ER) | payer OTHER ==
[~2023-09-20] VITALS: Ht 160 cm; Wt 78.5 kg
[2023-09-20 18:57] LABS: BASOPHILS # (AUTO) 0.03 K/uL (0.00-0.20); BASOPHILS % (AUTO) 0.4 % (0.0-5.0); EOSINOPHILS # (AUTO) 0.02 K/uL (0.00-0.70); EOSINOPHILS % (AUTO) 0.3 % (0.0-8.0); HEMATOCRIT 33.5 % (36-48); IMMATURE GRANULOCYTE ABSOLUTE 0.02 K/uL (0-1); LYMPHOCYTES # (AUTO) 2.3 K/uL (1.0-4.8); LYMPHOCYTES % (AUTO) 30.7 % (21.0-51.0); MEAN CORPUSCULAR HEMOGLOBIN 29.9 pg (27.0-33.0); MEAN CORPUSCULAR HGB CONC 32.5 g/dL (32.0-36.0); MEAN CORPUSCULAR VOLUME 91.8 fL (79-99); MONOCYTES # (AUTO) 0.8 K/uL (0.1-1.0); MONOCYTES % (AUTO) 10.7 % (3.0-13.0); NEUTROPHILS # (AUTO) 4.2 K/uL (1.8-7.7); NEUTROPHILS % (AUTO) 57.6 % (40.0-77.0); PLATELET COUNT (AUTO) 211 K/uL (130-400); RED BLOOD CELL COUNT(AUTO) 3.65 MIL/uL (4.00-5.50); RED CELL DISTRIBUTION WIDTH 13.2 % (11.0-15.5); WHITE BLOOD COUNT (AUTO) 7.3 K/uL (4.8-10.8)
[2023-09-20 19:06] LABS: CREATININE 0.8 mg/dL (0.5-1.5)
[2023-09-20 19:11] LABS: ALBUMIN 3.6 g/dL (3.5-5.0); BILIRUBIN,TOTAL 0.2 mg/dL (0.2-1.0); TOTAL PROTEIN, SERUM 7.8 g/dL (6.0-8.3)
[2023-09-20 22:42] LABS: APPEARANCE,URINE CLEAR (CLEAR); BILIRUBIN,URINE NEGATIVE (NEGATIVE); COLOR,URINE YELLOW (YELLOW); GLUCOSE, URINE (UA) NEGATIVE (NEGATIVE); KETONES,URINE NEGATIVE (NEGATIVE); LEUKOCYTE ESTERASE ,URINE SMALL Leu/uL (NEGATIVE); NITRATE,URINE NEGATIVE (NEGATIVE); OCCULT BLOOD,URINE NEGATIVE (NEGATIVE); PROTEIN,URINE NEGATIVE (NEGATIVE); UROBILINOGEN,URINE 0.2 mg/dL (0.2-1.0)
[2023-09-20 22:43] LABS: ADD UA MICROSCOPIC YES
[2023-09-20] MEDS ORDERED: KETOROLAC 30MG VIAL (30MG/ML) IVP ONE (23:00)
[2023-09-20] MEDS ORDERED: DIAZEPAM 5 MG/ML 2 ML SYG IVP ONE (23:00)
[2023-09-20] MEDS ORDERED: FAMOTIDINE 20MG VIAL IV ONE (23:00)
[2023-09-20 23:05] LABS: BACTERIA,URINE RARE /HPF (None Seen); WBC,URINE 26-50 /HPF (0-1)
[2023-09-21] MEDS ORDERED: PHENAZOPYRIDINE HCL 200 MG TABLET PO ONE (00:30)
[2023-09-21] MEDS ORDERED: CEPHALEXIN 250 MG CAPSULE PO SCH (00:30)
[2023-09-21 00:43] VITALS: BP 159/71; PULSE 69; RESP 18; O2SAT 98
[2023-09-21] MEDS ORDERED: CYCL10TA16 PO (00:47)
[2023-09-21] MEDS ORDERED: MELO-106 PO (00:47)
[2023-09-21] MEDS ORDERED: PHEN-847 PO (00:47)
[2023-09-21] MEDS ORDERED: CEPH500B PO (00:47)
== END 2023-09-21 00:55 | disposition home or self-care (01) ==
LOC: EDH 17:44
DX: N39.0 Urinary tract infection, site not specified (principal); M47.9 Spondylosis, unspecified; G89.29 Other chronic pain; M25.50 Pain in unspecified joint; I48.91 Unspecified atrial fibrillation; Z79.01 Long term (current) use of anticoagulants; Z79.82 Long term (current) use of aspirin; Z79.899 Other long term (current) drug therapy; Z88.1 Allergy status to other antibiotic agents; Z88.2 Allergy status to sulfonamides; Z88.5 Allergy status to narcotic agent; Z88.8 Allergy status to other drugs, medicaments and biological substances; Z91.041 Radiographic dye allergy status; Z95.5 Presence of coronary angioplasty implant and graft
CPT/HCPCS: 99285; 96374; 71045; 96375; 84484; 80053; 83690; 85025; 87077; 87088; 87186; 81001; 36415; 93005; J3490; J3360; J1885

== ENCOUNTER 2023-12-26 03:33 | Emergency (ER) | payer OTHER ==
[~2023-12-26] VITALS: Ht 160 cm; Wt 73.9 kg
[~2023-12-26 03:33] MED LIST changes: +CYCL10TA16 PO; +MELO-106 PO
[2023-12-26 04:07] LABS: BASOPHILS # (AUTO) 0.03 K/uL (0.00-0.20); BASOPHILS % (AUTO) 0.5 % (0.0-5.0); EOSINOPHILS # (AUTO) 0.12 K/uL (0.00-0.70); HEMATOCRIT 37.3 % (36-48); IMMATURE GRANULOCYTE ABSOLUTE 0.02 K/uL (0-1); LYMPHOCYTES # (AUTO) 2.3 K/uL (1.0-4.8); LYMPHOCYTES % (AUTO) 37.8 % (21.0-51.0); MEAN CORPUSCULAR HEMOGLOBIN 30.5 pg (27.0-33.0); MEAN CORPUSCULAR HGB CONC 33.8 g/dL (32.0-36.0); MEAN CORPUSCULAR VOLUME 90.3 fL (79-99); MONOCYTES # (AUTO) 0.5 K/uL (0.1-1.0); MONOCYTES % (AUTO) 8.7 % (3.0-13.0); NEUTROPHILS # (AUTO) 3.1 K/uL (1.8-7.7); NEUTROPHILS % (AUTO) 50.7 % (40.0-77.0); PLATELET COUNT (AUTO) 227 K/uL (130-400); RED BLOOD CELL COUNT(AUTO) 4.13 MIL/uL (4.00-5.50); RED CELL DISTRIBUTION WIDTH 14.6 % (11.0-15.5); WHITE BLOOD COUNT (AUTO) 6.1 K/uL (4.8-10.8)
[2023-12-26 04:14] LABS: CREATININE 0.7 mg/dL (0.5-1.0); POTASSIUM 3.6 mmol/L (3.5-5.1)
[2023-12-26 04:21] LABS: ALBUMIN 2.9 g/dL (3.5-5.0); BILIRUBIN,TOTAL 0.2 mg/dL (0.2-1.0); MAGNESIUM 1.8 mg/dL (1.80-2.40); TOTAL PROTEIN, SERUM 6.3 g/dL (6.0-8.3)
[2023-12-26] MEDS: DIAZEPAM 5 MG/ML 2 ML SYG IVP ONE (04:21)
[2023-12-26 05:19] LABS: APPEARANCE,URINE CLEAR (CLEAR); BILIRUBIN,URINE NEGATIVE (NEGATIVE); GLUCOSE, URINE (UA) NEGATIVE (NEGATIVE); KETONES,URINE NEGATIVE (NEGATIVE); LEUKOCYTE ESTERASE ,URINE NEGATIVE Leu/uL (NEGATIVE); NITRATE,URINE NEGATIVE (NEGATIVE); OCCULT BLOOD,URINE NEGATIVE (NEGATIVE); PROTEIN,URINE NEGATIVE (NEGATIVE); UROBILINOGEN,URINE 0.2 mg/dL (0.2-1.0)
[2023-12-26 05:20] LABS: ADD UA MICROSCOPIC NO; COLOR,URINE YELLOW (YELLOW)
[2023-12-26 06:16] VITALS: BP 160/84; PULSE 71; RESP 20; O2SAT 96
== END 2023-12-26 06:43 | disposition home or self-care (01) ==
LOC: EDH 03:33
DX: G89.29 Other chronic pain (principal); M25.511 Pain in right shoulder; E78.00 Pure hypercholesterolemia, unspecified; M19.90 Unspecified osteoarthritis, unspecified site; Z79.01 Long term (current) use of anticoagulants; Z79.1 Long term (current) use of non-steroidal anti-inflammatories (NSAID); Z79.82 Long term (current) use of aspirin; Z79.899 Other long term (current) drug therapy; Z88.1 Allergy status to other antibiotic agents; Z88.2 Allergy status to sulfonamides; Z88.5 Allergy status to narcotic agent; Z88.8 Allergy status to other drugs, medicaments and biological substances; Z91.041 Radiographic dye allergy status; Z95.5 Presence of coronary angioplasty implant and graft
CPT/HCPCS: 99285; 96374; 71045; 83735; 84484; 80053; 85025; 81003; 36415; 93005; J3360

== ENCOUNTER 2024-01-31 13:28 | Observation (INO) | payer MEDICARE, OTHER ==
[~2024-01-31] VITALS: Ht 160 cm; Wt 73.4 kg
[2024-01-31 14:28] LABS: BASOPHILS # (AUTO) 0.04 K/uL (0.00-0.20); BASOPHILS % (AUTO) 0.5 % (0.0-5.0); EOSINOPHILS # (AUTO) 0.02 K/uL (0.00-0.70); EOSINOPHILS % (AUTO) 0.3 % (0.0-8.0); HEMATOCRIT 40.4 % (36-48); IMMATURE GRANULOCYTE ABSOLUTE 0.03 K/uL (0-1); LYMPHOCYTES # (AUTO) 1.8 K/uL (1.0-4.8); LYMPHOCYTES % (AUTO) 22.3 % (21.0-51.0); MEAN CORPUSCULAR HEMOGLOBIN 30.4 pg (27.0-33.0); MEAN CORPUSCULAR HGB CONC 32.2 g/dL (32.0-36.0); MEAN CORPUSCULAR VOLUME 94.4 fL (79-99); MONOCYTES # (AUTO) 0.6 K/uL (0.1-1.0); NEUTROPHILS # (AUTO) 5.4 K/uL (1.8-7.7); NEUTROPHILS % (AUTO) 68.5 % (40.0-77.0); PLATELET COUNT (AUTO) 240 K/uL (130-400); RED BLOOD CELL COUNT(AUTO) 4.28 MIL/uL (4.00-5.50); RED CELL DISTRIBUTION WIDTH 13.6 % (11.0-15.5); WHITE BLOOD COUNT (AUTO) 7.9 K/uL (4.8-10.8)
[2024-01-31 14:45] LABS: CREATININE 1.1 mg/dL (0.5-1.0); POTASSIUM 4.5 mmol/L (3.5-5.1)
[2024-01-31 14:46] LABS: INR 2.3 (0.85-1.15); PROTHROMBIN TIME 25.5 SEC (9.6-11.6)
[2024-01-31 14:48] LABS: PARTIAL THROMBOPLASTIN TIME 51.3 SEC (26.3-35.5)
[2024-01-31 14:55] LABS: BILIRUBIN,TOTAL 0.3 mg/dL (0.2-1.0); MAGNESIUM 2.3 mg/dL (1.80-2.40); TOTAL PROTEIN, SERUM 8.3 g/dL (6.0-8.3)
[2024-01-31] MEDS: ASPIRIN 325MG TAB PO ONE (16:54)
[2024-01-31 17:20] LABS: APPEARANCE,URINE CLEAR (CLEAR); BILIRUBIN,URINE NEGATIVE (NEGATIVE); COLOR,URINE LIGHT-YELLOW (YELLOW); GLUCOSE, URINE (UA) NEGATIVE (NEGATIVE); KETONES,URINE NEGATIVE (NEGATIVE); LEUKOCYTE ESTERASE ,URINE NEGATIVE Leu/uL (NEGATIVE); NITRATE,URINE NEGATIVE (NEGATIVE); OCCULT BLOOD,URINE NEGATIVE (NEGATIVE); PH,URINE 6.5 (5.0-8.0); PROTEIN,URINE NEGATIVE (NEGATIVE); UROBILINOGEN,URINE 0.2 mg/dL (0.2-1.0)
[2024-01-31 17:22] LABS: ADD UA MICROSCOPIC YES
[2024-01-31 17:24] LABS: BACTERIA,URINE RARE /HPF (None Seen); MUCUS,URINE RARE LPF (None Seen); SQUAMOUS EPITHELIAL CELL,UR RARE /HPF (0-2)
[2024-01-31] MEDS ORDERED: METO-391 PO (21:25)
[2024-01-31] MEDS ORDERED: APIX5TAB PO (21:25)
[2024-01-31] MEDS ORDERED: ATOR20TA65 PO (21:26)
[2024-01-31] MEDS ORDERED: ROSU10TA28 PO (21:27)
[2024-01-31] MEDS ORDERED: IPRATROPIUM 0.5 MG/2.5 ML INH IH PRN (22:30)
[2024-01-31] MEDS ORDERED: DOCUSATE SODIUM 100 MG CAP PO PRN (22:30)
[2024-01-31] MEDS ORDERED: HYDRALAZINE 20MG/ML VIAL IV PRN (22:30)
[2024-01-31] MEDS ORDERED: ONDANSETRON 4MG INJ IVP PRN (22:30)
[2024-01-31] MEDS ORDERED: LACTULOSE 20 GM/30 ML UDCUP PO PRN (22:30)
[2024-01-31] MEDS ORDERED: ALBUTEROL 0.083% 2.5 MG/3 ML INH IH PRN (22:30)
[2024-01-31] MEDS ORDERED: ACETAMINOPHEN 650 MG SUPPOSITORY RC PRN (22:30)
[2024-01-31] MEDS: ATORVASTATIN 40 MG TABLET PO SCH (22:46)
[2024-01-31] MEDS: ACETAMINOPHEN 325 MG TAB PO PRN (22:47)
[2024-01-31 22:53] VITALS: PULSE 62; RESP 19; O2SAT 96
[2024-01-31] MEDS: APIXABAN 5 MG TABLET PO SCH (22:58)
[2024-02-01] MEDS: TRAMADOL HCL 50 MG TABLET PO PRN (07:26)
[2024-02-01] MEDS: INSULIN HUMULIN R 100 UNIT/ML 3ML SQ SCH (07:30)
[2024-02-01 08:02] LABS: BASOPHILS # (AUTO) 0.04 K/uL (0.00-0.20); BASOPHILS % (AUTO) 0.5 % (0.0-5.0); EOSINOPHILS # (AUTO) 0.07 K/uL (0.00-0.70); EOSINOPHILS % (AUTO) 0.8 % (0.0-8.0); HEMATOCRIT 39.7 % (36-48); IMMATURE GRANULOCYTE ABSOLUTE 0.03 K/uL (0-1); LYMPHOCYTES # (AUTO) 2.1 K/uL (1.0-4.8); LYMPHOCYTES % (AUTO) 23.4 % (21.0-51.0); MEAN CORPUSCULAR HEMOGLOBIN 31.2 pg (27.0-33.0); MEAN CORPUSCULAR HGB CONC 32.5 g/dL (32.0-36.0); MEAN CORPUSCULAR VOLUME 95.9 fL (79-99); MONOCYTES # (AUTO) 0.7 K/uL (0.1-1.0); MONOCYTES % (AUTO) 8.1 % (3.0-13.0); NEUTROPHILS # (AUTO) 5.9 K/uL (1.8-7.7); NEUTROPHILS % (AUTO) 66.9 % (40.0-77.0); PLATELET COUNT (AUTO) 239 K/uL (130-400); RED BLOOD CELL COUNT(AUTO) 4.14 MIL/uL (4.00-5.50); RED CELL DISTRIBUTION WIDTH 13.4 % (11.0-15.5); WHITE BLOOD COUNT (AUTO) 8.9 K/uL (4.8-10.8)
[2024-02-01 08:28] LABS: MAGNESIUM 2.2 mg/dL (1.80-2.40); POTASSIUM 4.9 mmol/L (3.5-5.1); THYROID STIMULATING HORMONE 1.45 uIU/mL (0.36-3.74)
[2024-02-01] MEDS ORDERED: APIXABAN 5 MG TABLET PO SCH (09:00)
[2024-02-01] MEDS: METOPROLOL SUCCINATE 50 MG TAB.SR.24H PO SCH (09:03)
[2024-02-01] MEDS: ASPIRIN 81MG CHEW TAB PO SCH (09:03)
[2024-02-01 17:02] VITALS: O2SAT 97
[2024-02-01 17:50] VITALS: BP 176/79; PULSE 67; RESP 18
[2024-02-01 19:00] VITALS: BP 158/87; PULSE 86; RESP 16
[2024-02-01] MEDS ORDERED: MAGNESIUM 2GM PREMIX 50ML 50 ML IV PRN (20:00)
[2024-02-01] MEDS ORDERED: POTASSIUM CHLORIDE 20MEQ/100ML 100 ML IV PRN ×2 (20:00)
[2024-02-01] MEDS ORDERED: DEXTROSE 50%-WATER 50 ML DISP.SYRIN IV PRN (20:00)
[2024-02-01] MEDS ORDERED: KCL 20 MEQ ERTAB PO PRN (20:00)
[2024-02-01] MEDS ORDERED: GLUCAGON 1MG KIT 1 MG ML IM PRN (20:00)
[2024-02-01] MEDS ORDERED: POTASSIUM CHLORIDE 10% ELIXIR 20 MEQ/15 ML UDCUP PO PRN (20:00)
[2024-02-01 23:00] VITALS: BP 148/87; PULSE 74; RESP 16
[2024-02-02 03:00] VITALS: BP 148/77; PULSE 74; RESP 16
[2024-02-02 05:51] LABS: BASOPHILS # (AUTO) 0.03 K/uL (0.00-0.20); BASOPHILS % (AUTO) 0.5 % (0.0-5.0); EOSINOPHILS # (AUTO) 0.09 K/uL (0.00-0.70); EOSINOPHILS % (AUTO) 1.4 % (0.0-8.0); HEMATOCRIT 42.3 % (36-48); IMMATURE GRANULOCYTE ABSOLUTE 0.02 K/uL (0-1); LYMPHOCYTES # (AUTO) 1.4 K/uL (1.0-4.8); LYMPHOCYTES % (AUTO) 21.2 % (21.0-51.0); MEAN CORPUSCULAR HEMOGLOBIN 30.5 pg (27.0-33.0); MEAN CORPUSCULAR HGB CONC 32.9 g/dL (32.0-36.0); MEAN CORPUSCULAR VOLUME 92.8 fL (79-99); MONOCYTES # (AUTO) 0.5 K/uL (0.1-1.0); MONOCYTES % (AUTO) 7.1 % (3.0-13.0); NEUTROPHILS # (AUTO) 4.6 K/uL (1.8-7.7); NEUTROPHILS % (AUTO) 69.5 % (40.0-77.0); PLATELET COUNT (AUTO) 192 K/uL (130-400); RED BLOOD CELL COUNT(AUTO) 4.56 MIL/uL (4.00-5.50); RED CELL DISTRIBUTION WIDTH 13.3 % (11.0-15.5); WHITE BLOOD COUNT (AUTO) 6.6 K/uL (4.8-10.8)
[2024-02-02 06:03] LABS: POTASSIUM 4.5 mmol/L (3.5-5.1)
[2024-02-02 07:37] VITALS: PULSE 63; RESP 19; O2SAT 98
[2024-02-02 08:12] VITALS: BP 141/72; PULSE 69; RESP 16
[2024-02-02] MEDS: PANTOPRAZOLE 40 MG TAB DR PO SCH (08:52)
[2024-02-02] MEDS: HYDROXYZINE 10 MG TABLET PO PRN (08:54)
[2024-02-02 11:24] VITALS: BP 124/53; PULSE 66; RESP 16
== END 2024-02-02 15:30 | disposition home or self-care (01) ==
LOC: EDH 13:28 → EDHIP 18:45 → 3DH 02-01 16:20
PROVIDERS: ADMIT Internal Medicine; ATTEND Internal Medicine
DX: E11.40 Type 2 diabetes mellitus with diabetic neuropathy, unspecified (principal); M79.605 Pain in left leg; M79.602 Pain in left arm; E04.1 Nontoxic single thyroid nodule; M47.816 Spondylosis without myelopathy or radiculopathy, lumbar region; M51.26 Other intervertebral disc displacement, lumbar region; N17.9 Acute kidney failure, unspecified; I63.9 Cerebral infarction, unspecified; I13.0 Hypertensive heart and chronic kidney disease with heart failure and stage 1 through stage 4 chronic kidney disease, or unspecified chronic kidney disease; I50.32 Chronic diastolic (congestive) heart failure; E11.22 Type 2 diabetes mellitus with diabetic chronic kidney disease; N18.9 Chronic kidney disease, unspecified; I48.0 Paroxysmal atrial fibrillation; M19.90 Unspecified osteoarthritis, unspecified site; E78.00 Pure hypercholesterolemia, unspecified; H54.7 Unspecified visual loss; I25.10 Atherosclerotic heart disease of native coronary artery without angina pectoris; H53.009 Unspecified amblyopia, unspecified eye; Z79.01 Long term (current) use of anticoagulants; Z87.440 Personal history of urinary (tract) infections; Z88.1 Allergy status to other antibiotic agents; Z88.2 Allergy status to sulfonamides; Z95.5 Presence of coronary angioplasty implant and graft; Z79.899 Other long term (current) drug therapy
CPT/HCPCS: 82550; 83735 ×2; 84484; 80053; 85025 ×3; 85610; 85730; 81001; 36415 ×3; 71045; 70450; 72125; 72131; 93971; 99291; 93005; 94664; 84443; 84100; 80048 ×2; 82948 ×6; 70551; 80061; 82306; G0378 ×41; J2405

== ENCOUNTER 2024-03-05 19:05 | Emergency (ER) | payer MEDICARE ==
[~2024-03-05] VITALS: Ht 157.5 cm; Wt 78.0 kg
[~2024-03-05 19:05] MED LIST changes: +ATOR20TA65 PO; +ROSU10TA72 PO
[2024-03-05] MEDS: IBUPROFEN 600 MG TABLET PO ONE (20:27)
[2024-03-05 21:10] LABS: BASOPHILS # (AUTO) 0.03 K/uL (0.00-0.20); BASOPHILS % (AUTO) 0.5 % (0.0-5.0); EOSINOPHILS # (AUTO) 0.11 K/uL (0.00-0.70); EOSINOPHILS % (AUTO) 1.7 % (0.0-8.0); HEMATOCRIT 36.9 % (36-48); IMMATURE GRANULOCYTE ABSOLUTE 0.02 K/uL (0-1); LYMPHOCYTES # (AUTO) 1.9 K/uL (1.0-4.8); LYMPHOCYTES % (AUTO) 29.1 % (21.0-51.0); MEAN CORPUSCULAR HEMOGLOBIN 31.6 pg (27.0-33.0); MEAN CORPUSCULAR HGB CONC 32.8 g/dL (32.0-36.0); MEAN CORPUSCULAR VOLUME 96.3 fL (79-99); MONOCYTES # (AUTO) 0.6 K/uL (0.1-1.0); MONOCYTES % (AUTO) 9.2 % (3.0-13.0); NEUTROPHILS % (AUTO) 59.2 % (40.0-77.0); PLATELET COUNT (AUTO) 164 K/uL (130-400); RED BLOOD CELL COUNT(AUTO) 3.83 MIL/uL (4.00-5.50); WHITE BLOOD COUNT (AUTO) 6.7 K/uL (4.8-10.8)
[2024-03-05] MEDS ORDERED: OXYCODONE HCL 30 MG TABLET PO PRN (21:30)
[2024-03-05 21:33] LABS: ADD UA MICROSCOPIC YES; APPEARANCE,URINE CLEAR (CLEAR); BILIRUBIN,URINE NEGATIVE (NEGATIVE); COLOR,URINE COLORLESS (YELLOW); GLUCOSE, URINE (UA) NEGATIVE (NEGATIVE); KETONES,URINE NEGATIVE (NEGATIVE); LEUKOCYTE ESTERASE ,URINE NEGATIVE Leu/uL (NEGATIVE); NITRATE,URINE NEGATIVE (NEGATIVE); OCCULT BLOOD,URINE NEGATIVE (NEGATIVE); PH,URINE 6.5 (5.0-8.0); PROTEIN,URINE NEGATIVE (NEGATIVE); UROBILINOGEN,URINE 0.2 mg/dL (0.2-1.0)
[2024-03-05 21:35] LABS: MUCUS,URINE RARE LPF (None Seen); RBC,URINE 0-1 /HPF (0-1); SQUAMOUS EPITHELIAL CELL,UR RARE /HPF (0-2); WBC,URINE 0-1 /HPF (0-1)
[2024-03-05] MEDS: OXYCODONE HCL 5 MG TAB PO ONE (21:40)
[2024-03-05 23:22] VITALS: BP 150/55; PULSE 68; RESP 18; O2SAT 98
== END 2024-03-05 23:33 | disposition home or self-care (01) ==
LOC: EDH 19:05
DX: S20.212A Contusion of left front wall of thorax, initial encounter (principal); S30.0XXA Contusion of lower back and pelvis, initial encounter; S16.1XXA Strain of muscle, fascia and tendon at neck level, initial encounter; I10 Essential (primary) hypertension; Z79.82 Long term (current) use of aspirin; Z79.84 Long term (current) use of oral hypoglycemic drugs; Z79.899 Other long term (current) drug therapy; Z98.890 Other specified postprocedural states; Z88.1 Allergy status to other antibiotic agents; Z88.2 Allergy status to sulfonamides; Z88.5 Allergy status to narcotic agent; Z88.8 Allergy status to other drugs, medicaments and biological substances; W01.0XXA Fall on same level from slipping, tripping and stumbling without subsequent striking against object, initial encounter; Y93.89 Activity, other specified; Y92.89 Other specified places as the place of occurrence of the external cause; Y99.8 Other external cause status
CPT/HCPCS: 36415; 70450; 71045; 71250; 72125; 72128; 72131; 72170; 73564; 73590; 74176; 81001; 85025; 93005

== ENCOUNTER 2024-03-16 12:15 | Emergency (ER) | payer MEDICARE ==
[~2024-03-16] VITALS: Ht 160 cm; Wt 73.9 kg
[2024-03-16] MEDS: ACETAMINOPHEN 500 MG TABLET PO ONE (13:40)
[2024-03-16] MEDS: ACETAMINOPHEN WITH CODEINE 1 TAB TAB PO ONE (13:40)
[2024-03-16] MEDS: DEXAMETHASONE SOD PHOSPHATE 4 MG/ML 1ML VIAL IM ONE (13:41)
[2024-03-16] MEDS ORDERED: METH4TAB3 PO (14:00)
[2024-03-16 14:17] VITALS: BP 155/69; PULSE 60; RESP 18; O2SAT 98
== END 2024-03-16 14:19 | disposition home or self-care (01) ==
LOC: EDH 12:15
DX: S30.0XXA Contusion of lower back and pelvis, initial encounter (principal); E78.00 Pure hypercholesterolemia, unspecified; Z79.82 Long term (current) use of aspirin; Z79.84 Long term (current) use of oral hypoglycemic drugs; Z79.899 Other long term (current) drug therapy; Z98.890 Other specified postprocedural states; Z88.2 Allergy status to sulfonamides; Z88.5 Allergy status to narcotic agent; Z88.8 Allergy status to other drugs, medicaments and biological substances; W18.39XA Other fall on same level, initial encounter; Y93.89 Activity, other specified; Y92.89 Other specified places as the place of occurrence of the external cause; Y99.8 Other external cause status
CPT/HCPCS: 99283; 72220; 96372; J1100

== ENCOUNTER 2024-03-20 11:01 | Emergency (ER) | payer MEDICARE ==
[~2024-03-20] VITALS: Ht 160 cm; Wt 73.9 kg
[~2024-03-20 11:01] MED LIST changes: +METH4TAB3 PO
[2024-03-20] MEDS: PANTOPRAZOLE 40 MG/VIAL IVP ONE (11:32)
[2024-03-20] MEDS: MAG/ALUM/SIMETH 30 ML UDCUP PO ONE (11:32)
[2024-03-20] MEDS: LIDOCAINE HCL 2% VISCOUS 15 ML UDCUP PO ONE (11:33)
[2024-03-20 11:37] LABS: BASOPHILS # (AUTO) 0.02 K/uL (0.00-0.20); BASOPHILS % (AUTO) 0.2 % (0.0-5.0); EOSINOPHILS # (AUTO) 0.01 K/uL (0.00-0.70); EOSINOPHILS % (AUTO) 0.1 % (0.0-8.0); HEMATOCRIT 36.3 % (36-48); IMMATURE GRANULOCYTE ABSOLUTE 0.08 K/uL (0-1); LYMPHOCYTES # (AUTO) 2.2 K/uL (1.0-4.8); MEAN CORPUSCULAR HEMOGLOBIN 31.7 pg (27.0-33.0); MEAN CORPUSCULAR HGB CONC 33.6 g/dL (32.0-36.0); MEAN CORPUSCULAR VOLUME 94.3 fL (79-99); MONOCYTES # (AUTO) 1.3 K/uL (0.1-1.0); MONOCYTES % (AUTO) 10.5 % (3.0-13.0); NEUTROPHILS # (AUTO) 8.6 K/uL (1.8-7.7); NEUTROPHILS % (AUTO) 70.5 % (40.0-77.0); PLATELET COUNT (AUTO) 209 K/uL (130-400); RED BLOOD CELL COUNT(AUTO) 3.85 MIL/uL (4.00-5.50); RED CELL DISTRIBUTION WIDTH 13.1 % (11.0-15.5); WHITE BLOOD COUNT (AUTO) 12.2 K/uL (4.8-10.8)
[2024-03-20 13:04] LABS: APPEARANCE,URINE CLEAR (CLEAR); BILIRUBIN,URINE NEGATIVE (NEGATIVE); COLOR,URINE COLORLESS (YELLOW); GLUCOSE, URINE (UA) NEGATIVE (NEGATIVE); KETONES,URINE NEGATIVE (NEGATIVE); LEUKOCYTE ESTERASE ,URINE NEGATIVE Leu/uL (NEGATIVE); NITRATE,URINE NEGATIVE (NEGATIVE); OCCULT BLOOD,URINE NEGATIVE (NEGATIVE); PROTEIN,URINE NEGATIVE (NEGATIVE); UROBILINOGEN,URINE 0.2 mg/dL (0.2-1.0)
[2024-03-20 13:12] LABS: ADD UA MICROSCOPIC NO
[2024-03-20 13:34] LABS: CREATININE 0.9 mg/dL (0.5-1.0); POTASSIUM 3.7 mmol/L (3.5-5.1)
[2024-03-20 13:38] LABS: ALBUMIN 3.7 g/dL (3.5-5.0); BILIRUBIN,TOTAL 0.4 mg/dL (0.2-1.0); TOTAL PROTEIN, SERUM 7.4 g/dL (6.0-8.3)
[2024-03-20 13:56] VITALS: BP 159/69; PULSE 68; RESP 18; O2SAT 99
[2024-03-23] MEDS ORDERED: HYDR-3830 PO (11:14)
[2024-03-23] MEDS ORDERED: ACET325T51 PO (11:14)
[2024-03-23] MEDS ORDERED: CETI-454 PO (11:14)
[2024-03-23] MEDS ORDERED: TRAM50TA4 PO (11:14)
[2024-03-23] MEDS ORDERED: BACL10TA PO (11:14)
[2024-03-23] MEDS ORDERED: LIDO1ADH71 TP (11:14)
[2024-03-23] MEDS ORDERED: ONDA-243 PO (11:14)
[2024-03-23] MEDS ORDERED: PANT40TA54 PO (11:14)
[2024-03-23] MEDS ORDERED: AMIO200T68 PO (11:14)
== END 2024-03-20 14:16 | disposition home or self-care (01) ==
LOC: EDH 11:01
DX: R07.89 Other chest pain (principal); K21.9 Gastro-esophageal reflux disease without esophagitis; E11.9 Type 2 diabetes mellitus without complications; I10 Essential (primary) hypertension; M19.90 Unspecified osteoarthritis, unspecified site; Z79.01 Long term (current) use of anticoagulants; Z79.1 Long term (current) use of non-steroidal anti-inflammatories (NSAID); Z79.82 Long term (current) use of aspirin; Z79.899 Other long term (current) drug therapy; Z88.1 Allergy status to other antibiotic agents; Z88.2 Allergy status to sulfonamides; Z88.5 Allergy status to narcotic agent; Z88.8 Allergy status to other drugs, medicaments and biological substances; Z91.041 Radiographic dye allergy status; Z95.5 Presence of coronary angioplasty implant and graft
CPT/HCPCS: 36415; 71045; 80053; 81003; 82550; 83690; 84484; 85025; 93005; 96374

== ENCOUNTER 2024-03-23 07:48 | Observation (INO) | payer MEDICARE ==
[~2024-03-23] VITALS: Ht 160 cm; Wt 73.5 kg
[2024-03-23 08:05] LABS: BASOPHILS # (AUTO) 0.06 K/uL (0.00-0.20); EOSINOPHILS % (AUTO) 1.6 % (0.0-8.0); HEMATOCRIT 39.2 % (36-48); IMMATURE GRANULOCYTE ABSOLUTE 0.06 K/uL (0-1); LYMPHOCYTES # (AUTO) 1.4 K/uL (1.0-4.8); LYMPHOCYTES % (AUTO) 21.7 % (21.0-51.0); MEAN CORPUSCULAR HEMOGLOBIN 31.3 pg (27.0-33.0); MEAN CORPUSCULAR HGB CONC 32.1 g/dL (32.0-36.0); MEAN CORPUSCULAR VOLUME 97.5 fL (79-99); MONOCYTES # (AUTO) 0.5 K/uL (0.1-1.0); MONOCYTES % (AUTO) 8.5 % (3.0-13.0); NEUTROPHILS # (AUTO) 4.2 K/uL (1.8-7.7); NEUTROPHILS % (AUTO) 66.2 % (40.0-77.0); PLATELET COUNT (AUTO) 217 K/uL (130-400); RED BLOOD CELL COUNT(AUTO) 4.02 MIL/uL (4.00-5.50); RED CELL DISTRIBUTION WIDTH 12.9 % (11.0-15.5); WHITE BLOOD COUNT (AUTO) 6.3 K/uL (4.8-10.8)
[2024-03-23 08:24] LABS: ALBUMIN 3.5 g/dL (3.5-5.0); BILIRUBIN,TOTAL 0.5 mg/dL (0.2-1.0); POTASSIUM 4.3 mmol/L (3.5-5.1); TOTAL PROTEIN, SERUM 7.4 g/dL (6.0-8.3)
[2024-03-23 08:58] LABS: MAGNESIUM 2.1 mg/dL (1.80-2.40)
[2024-03-23 10:31] LABS: APPEARANCE,URINE CLEAR (CLEAR); BILIRUBIN,URINE NEGATIVE (NEGATIVE); COLOR,URINE COLORLESS (YELLOW); GLUCOSE, URINE (UA) NEGATIVE (NEGATIVE); KETONES,URINE NEGATIVE (NEGATIVE); LEUKOCYTE ESTERASE ,URINE NEGATIVE Leu/uL (NEGATIVE); NITRATE,URINE NEGATIVE (NEGATIVE); OCCULT BLOOD,URINE NEGATIVE (NEGATIVE); PROTEIN,URINE NEGATIVE (NEGATIVE); UROBILINOGEN,URINE 0.2 mg/dL (0.2-1.0)
[2024-03-23 10:33] LABS: ADD UA MICROSCOPIC NO
[2024-03-23] MEDS ORDERED: ACET325T51 PO ×2 (11:14)
[2024-03-23] MEDS ORDERED: TRAM50TA4 PO ×2 (11:14)
[2024-03-23] MEDS ORDERED: CETI-454 PO ×2 (11:14)
[2024-03-23] MEDS ORDERED: PANT40TA54 PO ×2 (11:14)
[2024-03-23] MEDS ORDERED: HYDR-3830 PO ×2 (11:14)
[2024-03-23] MEDS ORDERED: ONDA-243 PO ×2 (11:14)
[2024-03-23] MEDS ORDERED: AMIO200T68 PO ×2 (11:14)
[2024-03-23] MEDS ORDERED: BACL10TA PO ×2 (11:14)
[2024-03-23] MEDS ORDERED: LIDO1ADH71 TP ×2 (11:14)
[2024-03-23] MEDS: LIDOCAINE 4% ADH..PATCH TP ONE (11:21)
[2024-03-23] MEDS: LIDOCAINE 4% ADH..PATCH TP SCH (11:23)
[2024-03-23] MEDS: ACETAMINOPHEN 325 MG TAB PO PRN (11:23)
[2024-03-23] MEDS: ONDANSETRON 4MG INJ IVP PRN (11:23)
[2024-03-23] MEDS ORDERED: ACETAMINOPHEN 650 MG SUPPOSITORY RC PRN (11:30)
[2024-03-23 12:05] VITALS: PULSE 62
[2024-03-23] MEDS: IPRATROPIUM/ALBUTEROL SULFATE 3 ML SOLUTION IH SCH (12:24)
[2024-03-23] MEDS: ALPRAZOLAM 0.25 MG TABLET PO SCH (12:43)
[2024-03-23] MEDS: KETOROLAC 15MG/ML VIAL (15MG/ML) IV PRN (13:18)
[2024-03-23] MEDS: ALPRAZOLAM 0.25 MG TABLET ONE (13:19)
[2024-03-23 17:40] VITALS: BP 157/82; PULSE 61; RESP 20
[2024-03-23] MEDS: BUDESONIDE 0.5 MG/2 ML INH IH SCH (18:43)
[2024-03-23 18:47] VITALS: PULSE 68; RESP 18
[2024-03-23 19:40] VITALS: O2SAT 94
[2024-03-23] MEDS: SIMVASTATIN 20 MG TABLET PO SCH (19:42)
[2024-03-23] MEDS: APIXABAN 5 MG TABLET PO SCH (19:43)
[2024-03-23] MEDS: FAMOTIDINE 20MG TAB PO SCH (19:43)
[2024-03-23] MEDS: METOPROLOL SUCCINATE 50 MG TAB.SR.24H PO SCH (19:50)
[2024-03-23 21:56] VITALS: BP 165/89; PULSE 62; RESP 18
[2024-03-23 22:46] VITALS: PULSE 72; RESP 18
[2024-03-24] VITALS (9 sets, daily range): BP systolic 126–145; BP diastolic 55–71; PULSE 60–68; RESP 18; O2SAT 94–97
[2024-03-24 03:49] LABS: BASOPHILS # (AUTO) 0.06 K/uL (0.00-0.20); BASOPHILS % (AUTO) 0.9 % (0.0-5.0); EOSINOPHILS # (AUTO) 0.12 K/uL (0.00-0.70); EOSINOPHILS % (AUTO) 1.8 % (0.0-8.0); HEMATOCRIT 36.7 % (36-48); IMMATURE GRANULOCYTE ABSOLUTE 0.06 K/uL (0-1); LYMPHOCYTES # (AUTO) 2.1 K/uL (1.0-4.8); LYMPHOCYTES % (AUTO) 32.2 % (21.0-51.0); MEAN CORPUSCULAR HEMOGLOBIN 30.7 pg (27.0-33.0); MEAN CORPUSCULAR HGB CONC 32.4 g/dL (32.0-36.0); MEAN CORPUSCULAR VOLUME 94.6 fL (79-99); MONOCYTES # (AUTO) 0.6 K/uL (0.1-1.0); MONOCYTES % (AUTO) 9.5 % (3.0-13.0); NEUTROPHILS # (AUTO) 3.6 K/uL (1.8-7.7); NEUTROPHILS % (AUTO) 54.7 % (40.0-77.0); PLATELET COUNT (AUTO) 197 K/uL (130-400); RED BLOOD CELL COUNT(AUTO) 3.88 MIL/uL (4.00-5.50); RED CELL DISTRIBUTION WIDTH 12.7 % (11.0-15.5); WHITE BLOOD COUNT (AUTO) 6.6 K/uL (4.8-10.8)
[2024-03-24 04:12] LABS: ALBUMIN 3.4 g/dL (3.5-5.0); BILIRUBIN,TOTAL 0.6 mg/dL (0.2-1.0); CREATININE 1.1 mg/dL (0.5-1.0); MAGNESIUM 2.2 mg/dL (1.80-2.40); POTASSIUM 4.3 mmol/L (3.5-5.1); TOTAL PROTEIN, SERUM 7.1 g/dL (6.0-8.3)
[2024-03-24] MEDS ORDERED: ATORVASTATIN 20 MG TABLET PO SCH (09:00)
[2024-03-25] MEDS ORDERED: SUCR1ORA15 PO (13:16)
== END 2024-03-24 14:45 | disposition home or self-care (01) ==
LOC: EDH 07:48 → EDHIP 11:03 → 3BH 17:40
PROVIDERS: ADMIT Internal Medicine; ATTEND Internal Medicine
DX: I25.119 Atherosclerotic heart disease of native coronary artery with unspecified angina pectoris (principal); I48.91 Unspecified atrial fibrillation; I10 Essential (primary) hypertension; E78.5 Hyperlipidemia, unspecified; F41.9 Anxiety disorder, unspecified; M19.90 Unspecified osteoarthritis, unspecified site; Z79.01 Long term (current) use of anticoagulants; Z88.1 Allergy status to other antibiotic agents; Z88.2 Allergy status to sulfonamides; Z95.5 Presence of coronary angioplasty implant and graft; Z79.82 Long term (current) use of aspirin; Z79.899 Other long term (current) drug therapy
CPT/HCPCS: 94667; 96374; 96376 ×2; 96375; 99285; 83735 ×2; 84484 ×3; 80053 ×2; 83690 ×2; 85025 ×2; 81003; 36415 ×2; 71045; 93005; 94640; 94668 ×2; 97161; 97116; G0378 ×27; J2405; J1885 ×3; 94664

== ENCOUNTER 2024-03-25 08:53 | Emergency (ER) | payer MEDICARE ==
[~2024-03-25] VITALS: Ht 157.5 cm; Wt 73.5 kg
[~2024-03-25 08:53] MED LIST changes: +ACET325T51 PO; +AMIO200T68 PO; +BACL10TA PO; +CETI-454 PO; +HYDR-3830 PO; +LIDO1ADH71 TP; +ONDA-243 PO; +PANT40TA54 PO; +TRAM50TA4 PO
[2024-03-25 09:19] LABS: BASOPHILS # (AUTO) 0.04 K/uL (0.00-0.20); BASOPHILS % (AUTO) 0.5 % (0.0-5.0); EOSINOPHILS # (AUTO) 0.11 K/uL (0.00-0.70); EOSINOPHILS % (AUTO) 1.4 % (0.0-8.0); HEMATOCRIT 39.2 % (36-48); IMMATURE GRANULOCYTE ABSOLUTE 0.05 K/uL (0-1); LYMPHOCYTES # (AUTO) 1.2 K/uL (1.0-4.8); LYMPHOCYTES % (AUTO) 16.1 % (21.0-51.0); MEAN CORPUSCULAR HEMOGLOBIN 31.6 pg (27.0-33.0); MEAN CORPUSCULAR HGB CONC 32.4 g/dL (32.0-36.0); MEAN CORPUSCULAR VOLUME 97.5 fL (79-99); MONOCYTES # (AUTO) 0.7 K/uL (0.1-1.0); MONOCYTES % (AUTO) 8.6 % (3.0-13.0); NEUTROPHILS # (AUTO) 5.5 K/uL (1.8-7.7); NEUTROPHILS % (AUTO) 72.7 % (40.0-77.0); PLATELET COUNT (AUTO) 214 K/uL (130-400); RED BLOOD CELL COUNT(AUTO) 4.02 MIL/uL (4.00-5.50); RED CELL DISTRIBUTION WIDTH 12.8 % (11.0-15.5); WHITE BLOOD COUNT (AUTO) 7.6 K/uL (4.8-10.8)
[2024-03-25 09:27] LABS: CREATININE 1.3 mg/dL (0.5-1.0); POTASSIUM 4.8 mmol/L (3.5-5.1)
[2024-03-25 09:32] LABS: ALBUMIN 3.7 g/dL (3.5-5.0); BILIRUBIN,TOTAL 0.4 mg/dL (0.2-1.0); TOTAL PROTEIN, SERUM 7.7 g/dL (6.0-8.3)
[2024-03-25 09:50] LABS: APPEARANCE,URINE CLEAR (CLEAR); BILIRUBIN,URINE NEGATIVE (NEGATIVE); COLOR,URINE LIGHT-YELLOW (YELLOW); GLUCOSE, URINE (UA) NEGATIVE (NEGATIVE); KETONES,URINE NEGATIVE (NEGATIVE); LEUKOCYTE ESTERASE ,URINE 25 Leu/uL (NEGATIVE); NITRATE,URINE NEGATIVE (NEGATIVE); OCCULT BLOOD,URINE NEGATIVE (NEGATIVE); PH,URINE 5.5 (5.0-8.0); PROTEIN,URINE NEGATIVE (NEGATIVE); UROBILINOGEN,URINE 0.2 mg/dL (0.2-1.0)
[2024-03-25 09:52] LABS: ADD UA MICROSCOPIC YES
[2024-03-25 10:04] LABS: MUCUS,URINE RARE LPF (None Seen); RBC,URINE 0-1 /HPF (0-1); SQUAMOUS EPITHELIAL CELL,UR RARE /HPF (0-2)
[2024-03-25] MEDS: MECLIZINE HCL 25 MG TABLET PO ONE (10:46)
[2024-03-25] MEDS: 0.9% NACL 500ML IV.SOLN 500 ML IV ONE (10:46)
[2024-03-25] MEDS: SOLU-MEDROL 40MG VIAL IVP ONE (10:46)
[2024-03-25] MEDS: MAG/ALUM/SIMETH 30 ML UDCUP PO ONE (12:03)
[2024-03-25] MEDS: ACETAMINOPHEN 325 MG TAB PO ONE (12:06)
[2024-03-25] MEDS: SUCRALFATE 1 GM/10 ML PO SCH (12:25)
[2024-03-25] MEDS ORDERED: SUCR1ORA15 PO (13:16)
[2024-03-25 13:32] VITALS: BP 160/70; PULSE 70; RESP 14; O2SAT 96
== END 2024-03-25 13:34 | disposition home or self-care (01) ==
LOC: EDH 08:53
DX: K21.9 Gastro-esophageal reflux disease without esophagitis (principal); E86.9 Volume depletion, unspecified; G89.29 Other chronic pain; M25.50 Pain in unspecified joint; N28.9 Disorder of kidney and ureter, unspecified; I10 Essential (primary) hypertension; Z79.01 Long term (current) use of anticoagulants; Z79.1 Long term (current) use of non-steroidal anti-inflammatories (NSAID); Z79.82 Long term (current) use of aspirin; Z79.899 Other long term (current) drug therapy; Z88.1 Allergy status to other antibiotic agents; Z88.2 Allergy status to sulfonamides; Z88.5 Allergy status to narcotic agent; Z88.8 Allergy status to other drugs, medicaments and biological substances; Z91.041 Radiographic dye allergy status; Z95.5 Presence of coronary angioplasty implant and graft
CPT/HCPCS: 99285; 96374; 70450; 96361; 83735; 80053; 85025; 81001; 36415; 93005; J7040; J2919

== ENCOUNTER 2024-04-04 08:57 | Observation (INO) | payer MEDICARE ==
[~2024-04-04] VITALS: Ht 157.5 cm; Wt 73.2 kg
[~2024-04-04 08:57] MED LIST changes: -ASPI-1005 PO; -CEPH500B PO; -CYCL10TA16 PO; -FAMO20TA8 PO; -FISH1CAP63 PO; -GABA-529 PO; -MELO-106 PO; -METH4TAB3 PO; -METO-296 PO; -METO-408 PO; -NAPR-1192 PO; -OXYC-38 PO; -PHEN-847 PO; -PHEN100C9 PO; -PRIM250T24 PO; -ROSU10TA72 PO; +SUCR1ORA15 PO
[2024-04-04 10:47] LABS: APPEARANCE,URINE CLEAR (CLEAR); BILIRUBIN,URINE NEGATIVE (NEGATIVE); COLOR,URINE COLORLESS (YELLOW); GLUCOSE, URINE (UA) NEGATIVE (NEGATIVE); KETONES,URINE NEGATIVE (NEGATIVE); LEUKOCYTE ESTERASE ,URINE NEGATIVE Leu/uL (NEGATIVE); NITRATE,URINE NEGATIVE (NEGATIVE); OCCULT BLOOD,URINE NEGATIVE (NEGATIVE); PH,URINE 7.5 (5.0-8.0); PROTEIN,URINE NEGATIVE (NEGATIVE); UROBILINOGEN,URINE 0.2 mg/dL (0.2-1.0)
[2024-04-04] MEDS ORDERED: DiphenhydrAMINE HCL 50 MG/ML VIAL IM ONE (11:00)
[2024-04-04 11:02] LABS: BASOPHILS # (AUTO) 0.03 K/uL (0.00-0.20); BASOPHILS % (AUTO) 0.4 % (0.0-5.0); EOSINOPHILS # (AUTO) 0.05 K/uL (0.00-0.70); EOSINOPHILS % (AUTO) 0.6 % (0.0-8.0); HEMATOCRIT 40.7 % (36-48); IMMATURE GRANULOCYTE ABSOLUTE 0.03 K/uL (0-1); LYMPHOCYTES # (AUTO) 1.2 K/uL (1.0-4.8); LYMPHOCYTES % (AUTO) 15.4 % (21.0-51.0); MEAN CORPUSCULAR HEMOGLOBIN 31.4 pg (27.0-33.0); MEAN CORPUSCULAR HGB CONC 32.2 g/dL (32.0-36.0); MEAN CORPUSCULAR VOLUME 97.6 fL (79-99); MONOCYTES # (AUTO) 0.6 K/uL (0.1-1.0); MONOCYTES % (AUTO) 8.2 % (3.0-13.0); NEUTROPHILS # (AUTO) 5.9 K/uL (1.8-7.7); PLATELET COUNT (AUTO) 186 K/uL (130-400); RED BLOOD CELL COUNT(AUTO) 4.17 MIL/uL (4.00-5.50); RED CELL DISTRIBUTION WIDTH 12.7 % (11.0-15.5); WHITE BLOOD COUNT (AUTO) 7.8 K/uL (4.8-10.8)
[2024-04-04] MEDS: 0.9% NACL 500ML IV.SOLN 500 ML IV ONE (11:11)
[2024-04-04] MEDS: ACETAMINOPHEN 500 MG TABLET PO ONE (11:12)
[2024-04-04] MEDS: DiphenhydrAMINE HCL 50 MG/ML VIAL IV ONE (11:14)
[2024-04-04 11:17] LABS: CREATININE 0.9 mg/dL (0.5-1.0); POTASSIUM 5.2 mmol/L (3.5-5.1)
[2024-04-04 11:18] LABS: ADD UA MICROSCOPIC NO
[2024-04-04 11:41] LABS: INR <= 0.93 (0.85-1.15); PROTHROMBIN TIME 10.1 SEC (9.6-11.6)
[2024-04-04] MEDS: KETOROLAC 15MG/ML VIAL (15MG/ML) IV ONE (13:15)
[2024-04-04] MEDS ORDERED: NITROGLYCERIN 0.4 MG SL TAB SL PRN (14:00)
[2024-04-04] MEDS ORDERED: DIPHENHYDRAMINE HCL 25 MG CAPSULE PO PRN (14:00)
[2024-04-04] MEDS ORDERED: ARTIFICAL TEARS SOL 15 ML OP PRN (14:00)
[2024-04-04] MEDS ORDERED: DiphenhydrAMINE HCL 50 MG/ML VIAL IV PRN (14:00)
[2024-04-04] MEDS ORDERED: LIDOCAINE HCL 2% VISCOUS 30 ML, MAG/ALUM/SIMETH 30ML 30 ML, DICYCLOMINE HCL 20 MG PO PRN (14:00)
[2024-04-04] MEDS ORDERED: ZOLPIDEM TARTRATE 5 MG TAB PO PRN (14:00)
[2024-04-04] MEDS ORDERED: BENZOCAINE/MENTH/CETYLPYRD CL 1 EACH LOZENGE MM PRN (14:00)
[2024-04-04] MEDS ORDERED: MAG/ALUM/SIMETH 30 ML UDCUP PO PRN (14:00)
[2024-04-04] MEDS ORDERED: DOCUSATE SODIUM 100 MG CAP PO PRN (14:00)
[2024-04-04] MEDS ORDERED: ACETAMINOPHEN 325 MG TAB PO PRN (14:00)
[2024-04-04] MEDS ORDERED: LOPERAMIDE HCL 2 MG CAP PO PRN (14:00)
[2024-04-04] MEDS ORDERED: GUAIFENESIN SUGAR-FREE 100 MG/5 ML UDCUP PO PRN (14:00)
[2024-04-04] MEDS ORDERED: GUAIFENESIN-DM 200/20 MG 10 ML PO PRN (14:00)
[2024-04-04] MEDS ORDERED: POLYETHYLENE GLYCOL 3350 17 GM POWD.PACK PO PRN (14:00)
[2024-04-04] MEDS ORDERED: LACTULOSE 20 GM/30 ML UDCUP PO PRN (14:00)
[2024-04-04] MEDS ORDERED: ONDANSETRON 4MG INJ IV PRN (14:00)
[2024-04-04] MEDS: LIDOCAINE HCL 2% VISCOUS 15 ML UDCUP PO ONE (14:26)
[2024-04-04] MEDS: MAG/ALUM/SIMETH 30 ML UDCUP PO ONE (14:27)
[2024-04-04] MEDS: DICYCLOMINE HCL 10 MG/5 ML ML PO ONE (14:27)
[2024-04-04] MEDS: ALPRAZOLAM 0.5 MG TABLET PO PRN (16:25)
[2024-04-04] MEDS: FAMOTIDINE 20MG VIAL IV PRN (16:25)
[2024-04-04] MEDS: ACETAMINOPHEN 325 MG TAB PO PRN (16:26)
[2024-04-04] MEDS: FAMOTIDINE 20MG VIAL IV ONE ×2 (16:42→16:43)
[2024-04-04] MEDS: FAMOTIDINE 20MG TAB PO SCH (20:55)
[2024-04-05] MEDS ORDERED: ACETAMINOPHEN 325 MG TAB PO PRN
[2024-04-05] MEDS ORDERED: SUCRALFATE 1 GM/10 ML PO PRN
[2024-04-05] MEDS ORDERED: ONDANSETRON ODT 4MG TAB PO PRN
[2024-04-05] MEDS: METOPROLOL SUCCINATE 25 MG TAB.SR.24H PO SCH (08:07)
[2024-04-05] MEDS: CETIRIZINE HCL 5 MG TABLET PO SCH (08:07)
[2024-04-05] MEDS: AMIODARONE 200 MG TABLET PO SCH (08:13)
[2024-04-05] MEDS: APIXABAN 5 MG TABLET PO SCH (08:13)
[2024-04-05] MEDS: ATORVASTATIN 20 MG TABLET PO SCH (08:14)
[2024-04-05 08:28] LABS: CREATININE 0.9 mg/dL (0.5-1.0); POTASSIUM 4.6 mmol/L (3.5-5.1)
[2024-04-05 08:30] LABS: BASOPHILS # (AUTO) 0.03 K/uL (0.00-0.20); BASOPHILS % (AUTO) 0.5 % (0.0-5.0); EOSINOPHILS # (AUTO) 0.08 K/uL (0.00-0.70); EOSINOPHILS % (AUTO) 1.3 % (0.0-8.0); HEMATOCRIT 36.7 % (36-48); IMMATURE GRANULOCYTE ABSOLUTE 0.03 K/uL (0-1); LYMPHOCYTES # (AUTO) 1.5 K/uL (1.0-4.8); LYMPHOCYTES % (AUTO) 24.2 % (21.0-51.0); MEAN CORPUSCULAR HEMOGLOBIN 30.9 pg (27.0-33.0); MEAN CORPUSCULAR VOLUME 93.9 fL (79-99); MONOCYTES # (AUTO) 0.7 K/uL (0.1-1.0); MONOCYTES % (AUTO) 11.4 % (3.0-13.0); NEUTROPHILS # (AUTO) 3.9 K/uL (1.8-7.7); NEUTROPHILS % (AUTO) 62.1 % (40.0-77.0); PLATELET COUNT (AUTO) 133 K/uL (130-400); RED BLOOD CELL COUNT(AUTO) 3.91 MIL/uL (4.00-5.50); RED CELL DISTRIBUTION WIDTH 12.7 % (11.0-15.5); WHITE BLOOD COUNT (AUTO) 6.3 K/uL (4.8-10.8)
[2024-04-05] MEDS: LIDOCAINE 4% ADH..PATCH TP SCH (09:00)
[2024-04-05] MEDS ORDERED: [UNRECOGNIZED DRUG - REMARK] PO SCH (09:00)
[2024-04-05] MEDS: PHARMACY COMMUNICATION MISC SCH (10:09)
[2024-04-05 19:33] VITALS: BP 131/51; PULSE 61; RESP 17; O2SAT 98
[2024-04-05] MEDS ORDERED: SIMVASTATIN 20 MG TABLET PO SCH (21:00)
[2024-04-05] MEDS ORDERED: GABA-529 PO (21:06)
[2024-04-06] VITALS: BP 151/64; PULSE 59; RESP 17
[2024-04-06 04:00] VITALS: BP 109/51; PULSE 66; RESP 17
[2024-04-06 05:13] LABS: BASOPHILS # (AUTO) 0.03 K/uL (0.00-0.20); BASOPHILS % (AUTO) 0.5 % (0.0-5.0); EOSINOPHILS # (AUTO) 0.11 K/uL (0.00-0.70); EOSINOPHILS % (AUTO) 1.9 % (0.0-8.0); HEMATOCRIT 36.6 % (36-48); IMMATURE GRANULOCYTE ABSOLUTE 0.01 K/uL (0-1); LYMPHOCYTES # (AUTO) 1.7 K/uL (1.0-4.8); LYMPHOCYTES % (AUTO) 29.5 % (21.0-51.0); MEAN CORPUSCULAR HGB CONC 32.2 g/dL (32.0-36.0); MEAN CORPUSCULAR VOLUME 96.1 fL (79-99); MONOCYTES # (AUTO) 0.6 K/uL (0.1-1.0); MONOCYTES % (AUTO) 10.8 % (3.0-13.0); NEUTROPHILS # (AUTO) 3.2 K/uL (1.8-7.7); NEUTROPHILS % (AUTO) 57.1 % (40.0-77.0); PLATELET COUNT (AUTO) 186 K/uL (130-400); RED BLOOD CELL COUNT(AUTO) 3.81 MIL/uL (4.00-5.50); RED CELL DISTRIBUTION WIDTH 12.8 % (11.0-15.5); WHITE BLOOD COUNT (AUTO) 5.7 K/uL (4.8-10.8)
[2024-04-06 05:30] LABS: CREATININE 1.2 mg/dL (0.5-1.0); POTASSIUM 4.8 mmol/L (3.5-5.1)
[2024-04-06 08:30] VITALS: O2SAT 98
[2024-04-06] MEDS: HYDROXYZINE 10 MG TABLET PO PRN (09:45)
== END 2024-04-06 11:00 | disposition home or self-care (01) ==
LOC: EDH 08:57 → EDHIP 13:31 → 4CH 04-05 19:41
PROVIDERS: ADMIT Internal Medicine Critical Care Medicine; ATTEND Internal Medicine Critical Care Medicine
DX: G45.9 Transient cerebral ischemic attack, unspecified (principal); M47.816 Spondylosis without myelopathy or radiculopathy, lumbar region; I48.0 Paroxysmal atrial fibrillation; I13.0 Hypertensive heart and chronic kidney disease with heart failure and stage 1 through stage 4 chronic kidney disease, or unspecified chronic kidney disease; I50.32 Chronic diastolic (congestive) heart failure; N18.9 Chronic kidney disease, unspecified; N17.9 Acute kidney failure, unspecified; I25.10 Atherosclerotic heart disease of native coronary artery without angina pectoris; E78.5 Hyperlipidemia, unspecified; R29.700 NIHSS score 0; Z79.01 Long term (current) use of anticoagulants; Z79.82 Long term (current) use of aspirin; Z87.440 Personal history of urinary (tract) infections; Z88.1 Allergy status to other antibiotic agents; Z88.2 Allergy status to sulfonamides; Z95.5 Presence of coronary angioplasty implant and graft; Z79.899 Other long term (current) drug therapy
CPT/HCPCS: 96374; 96361; 96375; 99285; 84484; 80048 ×3; 85025 ×3; 85610; 85730; 81003; 36415 ×3; 70450; 93880; 92522; 92610; 93005; 93306; 97161; 97530 ×2; G0378 ×43; J7040; J1200; J3490 ×2; J1885

== ENCOUNTER 2024-05-24 06:40 | Day surgery (SDC) | payer MEDICARE ==
[~2024-05-24] VITALS: Ht 160 cm; Wt 66.7 kg
[2024-05-24] VITALS (12 sets, daily range): BP systolic 140–158; BP diastolic 55–75; PULSE 52–62; RESP 14–20; TEMP 96.6–97.7
[~2024-05-24 06:40] MED LIST changes: +GABA-529 PO
[2024-05-24] MEDS: 0.9%NACL 1000ML 1,000 ML IV ONE (08:40)
[2024-05-24] MEDS ORDERED: proPOFol 10 MG/ML 20ML VIAL IV ONE (09:39)
== END 2024-05-24 11:10 | disposition home or self-care (01) ==
LOC: DAH 06:40 → ENDO 06:40
PROVIDERS: ATTEND Internal Medicine Gastroenterology
DX: R10.13 Epigastric pain (principal); K29.50 Unspecified chronic gastritis without bleeding; K21.9 Gastro-esophageal reflux disease without esophagitis; K44.9 Diaphragmatic hernia without obstruction or gangrene; K22.89 Other specified disease of esophagus; K59.04 Chronic idiopathic constipation; K64.0 First degree hemorrhoids; K57.30 Diverticulosis of large intestine without perforation or abscess without bleeding; I10 Essential (primary) hypertension; I25.10 Atherosclerotic heart disease of native coronary artery without angina pectoris; E66.9 Obesity, unspecified; I48.91 Unspecified atrial fibrillation; G43.909 Migraine, unspecified, not intractable, without status migrainosus; G40.909 Epilepsy, unspecified, not intractable, without status epilepticus; Z95.5 Presence of coronary angioplasty implant and graft; Z88.1 Allergy status to other antibiotic agents; Z88.5 Allergy status to narcotic agent; Z88.8 Allergy status to other drugs, medicaments and biological substances; Z79.01 Long term (current) use of anticoagulants; Z79.899 Other long term (current) drug therapy
CPT/HCPCS: 43239; J2704; J7030; A7002; J3490

== ENCOUNTER 2024-06-11 10:19 | Emergency (ER) | payer MEDICARE ==
[~2024-06-11] VITALS: Ht 160 cm; Wt 72.6 kg
[~2024-06-11 10:19] MED LIST changes: -LIDO1ADH71 TP; -ONDA-243 PO
[2024-06-11 10:33] VITALS: BP 145/67; PULSE 68; RESP 14; TEMP 98.8; O2SAT 98
[2024-06-11 10:37] LABS: BASOPHILS # (AUTO) 0.02 K/uL (0.00-0.20); BASOPHILS % (AUTO) 0.2 % (0.0-5.0); EOSINOPHILS # (AUTO) 0.06 K/uL (0.00-0.70); EOSINOPHILS % (AUTO) 0.5 % (0.0-8.0); HEMATOCRIT 39.3 % (36-48); IMMATURE GRANULOCYTE ABSOLUTE 0.04 K/uL (0-1); LYMPHOCYTES # (AUTO) 1.3 K/uL (1.0-4.8); LYMPHOCYTES % (AUTO) 11.8 % (21.0-51.0); MEAN CORPUSCULAR HEMOGLOBIN 31.5 pg (27.0-33.0); MEAN CORPUSCULAR HGB CONC 33.1 g/dL (32.0-36.0); MEAN CORPUSCULAR VOLUME 95.2 fL (79-99); MONOCYTES # (AUTO) 0.7 K/uL (0.1-1.0); MONOCYTES % (AUTO) 6.2 % (3.0-13.0); NEUTROPHILS # (AUTO) 9.2 K/uL (1.8-7.7); NEUTROPHILS % (AUTO) 80.9 % (40.0-77.0); PLATELET COUNT (AUTO) 230 K/uL (130-400); RED BLOOD CELL COUNT(AUTO) 4.13 MIL/uL (4.00-5.50); RED CELL DISTRIBUTION WIDTH 12.3 % (11.0-15.5); WHITE BLOOD COUNT (AUTO) 11.3 K/uL (4.8-10.8)
[2024-06-11 10:45] LABS: CREATININE 1.3 mg/dL (0.5-1.0); POTASSIUM 3.6 mmol/L (3.5-5.1)
== END 2024-06-11 11:31 | disposition home or self-care (01) ==
LOC: EDH 10:19
DX: R07.89 Other chest pain (principal); F41.1 Generalized anxiety disorder; I10 Essential (primary) hypertension; I25.2 Old myocardial infarction; Z79.899 Other long term (current) drug therapy
CPT/HCPCS: 36415; 80048; 84484; 85025; 93005